=== PATIENT | female | born 1975 | race African-American/Black ===

== ENCOUNTER 2021-11-27 11:30 | Emergency (ER) | payer MEDICAID, SELFPAY ==
--- NOTE | ~2021-11-27 | US_ITS ---
EXAMINATION: US OB follow up DATE: 11/27/2021 13:06 INDICATION: Uncertain dates. . TECHNIQUE: Real-time ultrasound of the pelvis was performed. COMPARISON: None. FINDINGS: There is a single living fetus in breech presentation. The placenta is anterior. heart rate is 134 beats per minute (bpm). The amniotic fluid index is 15.6 cm, which is normal. The following biometric data were obtained: Biparietal diameter (BPD): 5.1 cm; head circumference (HC): 19.1 cm; abdominal circumference (AC): 17 .0 cm; femur length (FL): 3.8 cm. These measurements are concordant. Estimated weight is 458 g +/- 69 g, which correlates with the <3rd percentile when 03/22/22 is us ed as estimated date of delivery. As single measurements, these parameters are each equal to the following estimated gestational ages: BPD: 21 weeks 3 days. HC: 21 weeks 3 days. AC: 22 weeks 0 days. FL: 22 weeks 0 days. estimated gestational age based solely on measurements from this exam is 21 weeks 5 days +/- 1 weeks 4 days. IMPRESSION: 1. Single living fetus in breech presentation. 2. Estimated date of delivery of 04/04/2022 based on this ultrasound. Reviewed, dictated and finalized at location A. GATION CLAIM REPRESENTATIVE
[2021-11-27 11:34] VITALS: BP 141/78; PULSE 105; RESP 18; TEMP 36.7; O2SAT 100
[2021-11-27 12:17] LABS: Basophils Percent Auto 0.3 % (0.2-1.2); Eosinophils Percent Auto 0.1 % (0-4.4); Hematocrit 31.4 % (37.0-47.0); Hemoglobin 10.4 g/dL (12.0-15.0); Immature Granulocyte Absolute 0.04 K/mm3 (0.00-0.031); Immature Granulocyte Percent A 0.3 % (0-0.5); Lymphocytes Absolute Auto 1.21 K/mm3 (0.9-3.2); Lymphocytes Percent Auto 10.2 % (18.3-44.2); Mean Corpuscular HGB Conc 33.1 g/dl (32-36); Mean Corpuscular Hemoglobin 32.6 pg (26-34); Mean Corpuscular Volume 98.4 fl (80-100); Mean Platelet Volume 9.8 fl (7.4-10.4); Monocytes Absolute Auto 0.6 K/mm3 (0.1-0.6); Monocytes Percent Auto 4.7 % (2.6-8.5); Neutrophils Percent Auto 84.4 % (45.5-73.1); Platelet Count Result 347 k/mm3 (150-375); Red Blood Count 3.19 M/mm3 (4.2-5.4); Red Cell Distribution Width 12.8 % (11.5-14.5); White Blood Count 11.8 K/mm3 (4.5-10.0)
[2021-11-27 12:18] LABS: Alanine Aminotransferase 14 U/L (4-35); Albumin Level 3.7 g/dL (3.5-5.1); Alkaline Phosphatase 68 U/L (38-126); Anion Gap 8 mmol/L (8-16); Aspartate Amino Transferase 21 U/L (14-36); Bilirubin,Total 0.5 mg/dL (0.2-1.3); Blood Urea Nitrogen 13 mg/dL (7-17); Carbon Dioxide 22 mmol/L (22-30); Chloride 102 mmol/L (98-107); Estimated CRCL calculation 102 ml/min; Estimated Glomerular Filt Rate > 60; Glucose 130 mg/dL (65-110); Lipase 90 U/L (23-300); Potassium 4.2 mmol/L (3.4-5.0); Sodium 132 mmol/L (137-145)
[2021-11-27 12:25] LABS: Bilirubin Urine 1+ (Negative); Blood Urine Negative (Negative); Color Urine Yellow (Yellow); Glucose Urine UA Negative (Negative); Ketones Urine 2+ mg/dL (Negative); Leukocyte Esterase Ur Negative LEU/UL (Negative); Nitrate Urine Negative (Negative); Protein Urine 2+ mg/dL (Negative); Specific Grav Ur 1.025 (1.001-1.035)
[2021-11-27 12:51] LABS: Mucus Urine Rare /lpf; RBC Urine 0-2 /hpf (0-2); Squamous Epithelial Cell Urine Many /hpf (Few)
[2021-11-27 12:52] LABS: Add Urine Microscopic? YES; Appearance Urine Sl Cloudy (Clear)
--- NOTE | 2021-11-27 13:05 | ED.NAVMDI ---
HPI - Nausea/Vomiting/Diarrhea General Chief complaint: Nausea/Vomiting/Diarrhea Stated complaint: nausea and concerned for Time Seen by Provider: 11/27/21 12:17 Source: patient Mode of arrival: ambulatory Limitations: no limitations History of Present Illness HPI Narrative: Patient is a 46-year-old female complaining of nausea for months, I have been sick since July and I did have my period since accompanied by lower abdominal cramping. Patient does not know if she is since she has not taken any test. Patient states that her nausea has increased and now she has been having vomiting for the past few days. She denies any vaginal bleeding or discharge. Patient denies any chest pain, shortness of breath, diarrhea, urinary symptoms, fever or chills. Related Data Allergies Allergy/AdvReac Type Severity Reaction Status Date / Time No Known Allergies Allergy Verified 11/27/21 11:33 Review of Systems Review of Systems: All systems reviewed & are unremarkable except as noted in HPI and below Constitutional: Constitutional: Denies body ache(s), Denies chills, Denies excessive sweating, Denies fatigue, Denies fever(s), Denies headache(s), Denies lethargy, Denies malaise, Denies weakness and Denies weight loss Eyes: Eyes: Denies blurry vision, Denies change in vision and Denies loss of vision ENT: Denies dizziness, Denies ear discharge, Denies headache(s), Denies lip swelling, Denies epistaxis, Denies nasal congestion, Denies neck pain, Denies throat swelling and Denies tongue swelling Cardiovascular: Cardiovascular: Denies chest pain, Denies chest pain at rest, Denies chest pain with activity, Denies diaphoresis, Denies rapid heart rate, Denies edema, Denies irregular heart rhythm, Denies lightheadedness, Denies palpitations, Denies dyspnea and Denies dyspnea on exertion Respiratory: Respiratory: Denies chest congestion, Denies cough, Denies hemoptysis, Denies dyspnea and Denies dyspnea on exertion Gastrointestinal: Gastrointestinal: Denies melena, Denies hematochezia, Denies diarrhea and Denies hematemesis Musculoskeletal: Musculoskeletal: Denies abnormal gait, Denies deformity, Denies joint swelling, Denies limited range of motion, Denies neck pain and Denies numbness Neurologic: Denies Abnormal speech present, Denies abnormal gait, Denies confusion, Denies dizziness, Denies headache(s), Denies focal weakness, Denies loss of vision, Denies numbness, Denies Other visual disturbances, Denies Sensory deficit (Neuro) and Denies weakness Psychiatric: Psychiatric: Denies confusion, Denies depression, Denies auditory hallucinations, Denies homicidal ideation and Denies suicidal ideation Endocrine: Endocrine: Denies cold intolerance, Denies excessive sweating, Denies fatigue, Denies heat intolerance and Denies palpitations Hematologic/Lymphatic: Hematologic/Lymphatic: Denies easy bleeding and Denies easy bruising Allergic/Immunologic: Allergic/Immunologic: Denies lip swelling, Denies throat swelling and Denies tongue swelling PMFSH Comments Past medical history: Diabetes Family history: Diabetes, hypertension Social history: Non-smoker, no EtOH use, positive for marijuana use Exam Const: General: cooperative, healthy appearing, comfortable, no acute distress, well developed, alert and awake; No confusion Orientation/consciousness: oriented to person, oriented to place, oriented to time, patient oriented x3 and No confusion Limitations: no limitations HENMT: Head: normal to inspection, normocephalic and atraumatic Ears: hearing grossly normal bilaterally, TM normal on the right and TM normal on the left General nose exam: Normal external nose present, Normal nares present and No nasal discharge present Face and sinus: normal facial exam Mouth: Yes Normal oral and palatal mucosa present, Yes lip normal, Yes tongue normal and Yes oropharynx normal Throat: posterior oropharynx normal, tonsils normal and
[2021-11-27] MEDS: SODIUM CHLORIDE 0.9% IV 1,000 ML 999 ML IV CONT (13:09)
[2021-11-27] MEDS: PROMETHAZINE HCL 25 MG/ML AMPUL 12.5 MG IV PUSH (13:14)
== END 2021-11-27 15:03 | disposition home or self-care (01) ==
PROVIDERS: Emergency Medicine; Emergency Provider Emergency Medicine
DX: O21.2 Late vomiting of pregnancy (principal); O24.112 Pre-existing type 2 diabetes mellitus, in pregnancy, second trimester; Z3A.21 21 weeks gestation of pregnancy
CPT/HCPCS: 36415; 76816; 80053; 81001; 81025; 83690; 84702; 85025; 87077; 87086; 87088; 96361; 96374; 99284; J2550; J7030

== ENCOUNTER 2022-03-08 12:50 | Inpatient (IN) | payer OTHER, SELFPAY ==
[2022-03-08] VITALS (60 sets, daily range): BP systolic 84–164; BP diastolic 48–90; PULSE 26–232; RESP 14–18; TEMP 36.2–36.8; O2SAT 72–100; BMI 34.0
--- NOTE | 2022-03-08 12:50 | LDADM ---
This patient, Altaf Dejesus, was admitted to Labor/Delivery/Recovery 120 on 03/08/22 at 12:50. Plans for labor, pain management and were discussed with patient. Patient/family oriented to hospital policies and general routines including ID bracelet, bed and alarms, visiting hours, pain management, procedures, bathroom and other care routines, personal items, smoking policy, room service/diet and guest tray routines, security routines, and visiting hours. Patient/Family are encouraged to report perceived risks to care and to ask questions if they do not understand what they are told or what they should do. See OBIX for further documentation.
[2022-03-08] MEDS: LACTATED RINGERS 1,000 ML 100 ML IV CONT (14:15)
[2022-03-08] MEDS: ONDANSETRON INJ 4 MG/2 ML VIAL IV PUSH (14:16)
[2022-03-08 14:31] LABS: Basophils Percent Auto 0.5 % (0.2-1.2); Eosinophils Percent Auto 0.3 % (0-4.4); Hematocrit 34.3 % (37.0-47.0); Hemoglobin 11.2 g/dL (12.0-15.0); Immature Granulocyte Absolute 0.07 K/mm3 (0.00-0.031); Immature Granulocyte Percent A 0.8 % (0-0.5); Lymphocytes Absolute Auto 1.67 K/mm3 (0.9-3.2); Lymphocytes Percent Auto 19.2 % (18.3-44.2); Mean Corpuscular HGB Conc 32.7 g/dl (32-36); Mean Corpuscular Hemoglobin 31.8 pg (26-34); Mean Corpuscular Volume 97.4 fl (80-100); Mean Platelet Volume 10.1 fl (7.4-10.4); Monocytes Absolute Auto 0.5 K/mm3 (0.1-0.6); Monocytes Percent Auto 5.9 % (2.6-8.5); Neutrophils Absolute Auto 6.4 K/mm3 (1.3-6.7); Neutrophils Percent Auto 73.3 % (45.5-73.1); Platelet Count Result 377 k/mm3 (150-375); Red Blood Count 3.52 M/mm3 (4.2-5.4); Red Cell Distribution Width 12.6 % (11.5-14.5); White Blood Count 8.7 K/mm3 (4.5-10.0)
[2022-03-08 14:43] LABS: Alanine Aminotransferase 12 U/L (6-35); Albumin Level 3.7 g/dL (3.5-5.1); Alkaline Phosphatase 109 U/L (38-126); Anion Gap 5 mmol/L (8-16); Aspartate Amino Transferase 21 U/L (14-36); Bilirubin,Total 0.4 mg/dL (0.2-1.3); Blood Urea Nitrogen 20 mg/dL (7-17); Calcium 9.7 mg/dL (8.4-10.2); Carbon Dioxide 21 mmol/L (22-30); Chloride 104 mmol/L (98-107); Estimated Glomerular Filt Rate > 60; Glucose 81 mg/dL (65-110); Potassium 4.6 mmol/L (3.4-5.0); Sodium 130 mmol/L (137-145)
--- NOTE | 2022-03-08 14:55 | PC.NURSE ---
Dr. Thomas updated on pt labs, strip and cervical check. Orders received for pt for repeat c/s. C/S orders received.
--- NOTE | 2022-03-08 15:10 | PC.NURSE ---
notified of pt contractions with cervical change. Orders received for pt to have up to 3 dose of terb. pt to go for c/s once OR is available.
[2022-03-08] MEDS: TERBUTALINE SULFATE 1 MG/ML VIAL 0.25 MG SUB-Q (15:16)
[2022-03-08] MEDS: LACTATED RINGERS 1,000 ML 125 ML IV CONT ×2 (15:21→16:07)
--- NOTE | 2022-03-08 15:22 | WPDANESEPPF ---
Anes - Initial Pre Proc Eval Procedure: Operation Date: 03/08/22 16:00 Proposed Procedures p Section - Annia Thomas MD Date/Time: 03/08/22 15:22 Surgeon: Annia Thomas MD Pre Op Diagnosis: Labor Patient Data Age: 46 Gender: F Height: 1.6 m Weight: 87 kg Last Vital Signs Pulse 105 H 03/08/22 15:21 BP 150/90 H 03/08/22 15:21 Allergies Allergy/AdvReac Type Severity Reaction Status Date / Time No Known Allergies Allergy Verified 11/27/21 11:33 Home Medications Medication Instructions Recorded Confirmed Type No Home Medications 02/25/22 02/25/22 History Laboratory Tests 03/08/22 03/08/22 03/08/22 14:24 14:24 14:24 WBC 8.7 K/mm3 K/mm3 (4.5-10.0) RBC 3.52 M/mm3 L M/mm3 (4.2-5.4) Hgb 11.2 g/dL L g/dL (12.0-15.0) Hct 34.3 % L % (37.0-47.0) MCV 97.4 fl fl (80-100) MCH 31.8 pg pg (26-34) MCHC 32.7 g/dl g/dl (32-36) RDW 12.6 % % (11.5-14.5) Plt Count 377 k/mm3 H k/mm3 (150-375) MPV 10.1 fl fl (7.4-10.4) Immature Gran % (Auto) 0.8 % H % (0-0.5) Neut % (Auto) 73.3 % H % (45.5-73.1) Lymph % (Auto) 19.2 % % (18.3-44.2) Kingfisher % (Auto) 5.9 % % (2.6-8.5) Eos % (Auto) 0.3 % % (0-4.4) Baso % (Auto) 0.5 % % (0.2-1.2) Lymph # (Auto) 1.67 K/mm3 K/mm3 (0.9-3.2) Kingfisher # (Auto) 0.5 K/mm3 K/mm3 (0.1-0.6) Eos # (Auto) 0.0 K/mm3 K/mm3 (0-0.3) Baso # (Auto) 0.0 K/mm3 K/mm3 (0.0-0.1) Abs Immat Gran (auto) 0.07 K/mm3 H K/mm3 (0.00-0.031) Absolute Neuts (auto) 6.4 K/mm3 K/mm3 (1.3-6.7) Absolute Nucleated RBC 0.0 K/mm3 K/mm3 (0.0-0.012) Nucleated RBC % 0.0 % % (0.0-0.2) Sodium 130 mmol/L L mmol/L (137-145) Potassium 4.6 mmol/L mmol/L (3.4-5.0) Chloride 104 mmol/L mmol/L (98-107) Carbon Dioxide 21 mmol/L L mmol/L (22-30) Anion Gap 5 mmol/L L mmol/L (8-16) BUN 20 mg/dL H mg/dL (7-17) Creatinine 0.90 mg/dL mg/dL (0.7-1.0) Estim Creat Clear Calc Not Reportable Estimated GFR > 60 (59 - ) Glucose 81 mg/dL mg/dL (65-110) Calcium 9.7 mg/dL mg/dL (8.4-10.2) Total Bilirubin 0.4 mg/dL mg/dL (0.2-1.3) AST 21 U/L U/L (14-36) ALT 12 U/L U/L (6-35) Alkaline Phosphatase 109 U/L U/L (38-126) Total Protein 8.0 g/dL g/dL (6.3-8.2) Albumin 3.7 g/dL g/dL (3.5-5.1) RPR Pending Patient hx anesthesia problems: none Family hx anesthesia problems: none Results Review: All pre-operative results and documents have been reviewed as part of the pre-operative evaluation. [facility] Family History Family History (Updated 02/25/22 @ 14:47 by Ida Mcmanus RN) Mother Hypertension Diabetes mellitus Social History Social History Smoking status: Never smoker Substance use: never Spiritual care concerns: No Anes - Eval Final PreProcedure Day of Procedure 03/08/22 15:22 Heart: regular rate and rhythm Lungs: clear to auscultation and normal air movement Airway: Mallampati scale Neurological: alert and oriented Last oral intake: >/= 8 hours ASA classification: III Emergent: no Anesthetic plan: proceed Anesthesia type and monitoring: regional spinal and standard monitoring Results Review: All pre-operative results and documents have been reviewed as part of the pre-operative evaluation. Informed Consent: The patient's anesthetic plan and its attendant risks and benefits were discussed with the patient/family/POA. Questions were solicited and answers provided to the satisfaction of the patient/family/POA.
[2022-03-08] MEDS: NIFEdipine 10 MG CAPSULE PO (16:07)
--- NOTE | 2022-03-08 16:07 | PM.IMHP ---
H&P: HPI History of Present Illness Date/Time: 03/08/22 16:07 Chief Complaint: Labor Narrative: this patient is a 46-year-old multiparous female with a 36 weeks gestation who presents in labor. She had a previous delivery and has old thin lower uterine segment. We have been waiting for the operating room to be available to perform her delivery. She is stable at this time. She is messi regularly and they are painful. She reports good movement. She denies any vaginal bleeding or loss of fluid. She denies any chest pain or shortness of breath. She denies any nausea, vomiting, fever, chills. Review of Systems Review of Systems: All systems reviewed & are unremarkable except as noted in HPI and below Constitutional: Constitutional: Denies chills, Denies fatigue, Denies fever(s) and Denies weakness Eyes: Eyes: Denies blurry vision, Denies change in vision, Denies loss of peripheral vision, Denies loss of vision, Denies other visual disturbances and Denies eye pain ENT: Denies vertigo, Denies dizziness, Denies hearing loss, Denies mouth pain, Denies nasal obstruction, Denies neck mass and Denies neck pain Cardiovascular: Cardiovascular: Denies chest pain, Denies diaphoresis, Denies syncope, Denies leg edema and Denies dyspnea Respiratory: Respiratory: Denies chest congestion, Denies cough, Denies hemoptysis, Denies dyspnea and Denies wheezing Gastrointestinal: Gastrointestinal: Denies abdominal pain, Denies constipation, Denies diarrhea, Denies nausea and Denies vomiting Genitourinary: Genitourinary: Denies hematuria, Denies change in libido, Denies nocturia, Denies genital lesions, Denies flank pain and Denies urinary urgency Musculoskeletal: Musculoskeletal: Denies abnormal gait, Denies back pain, Denies myalgias, Denies arthralgias, Denies joint swelling, Denies muscle weakness and Denies neck pain Integumentary/Breasts: Skin/Breast: Denies swelling, Denies breast pain, Denies breast mass, Denies dry skin, Denies nipple discharge, Denies unusual bruising and Denies jaundice Neurologic: Denies Neuro-related abnormal movements, Denies Abnormal speech present, Denies abnormal gait, Denies behavioral changes, Denies confusion, Denies vertigo, Denies dizziness, Denies syncope, Denies loss of vision, Denies memory loss, Denies convulsions and Denies weakness Psychiatric: Psychiatric: Denies abnormal sleep pattern, Denies behavioral changes, Denies change in libido, Denies confusion, Denies depression, Denies anhedonia and Denies memory loss Endocrine: Endocrine: Reports no additional endocrine complaints, Denies change in libido and Denies fatigue Hematologic/Lymphatic: Hematologic/Lymphatic: Reports no additional hematologic/lymphatic complaints Allergic/Immunologic: Allergic/Immunologic: Reports no additional allergic/immunologic complaints and Denies wheezing [facility] Family History Family History (Updated 02/25/22 @ 14:47 by Ida Mcmanus RN) Mother Hypertension Diabetes mellitus Social History Social History Smoking status: Never smoker Substance use: never Spiritual care concerns: No Meds Home Medications and Allergies Home Medications Medication Instructions Recorded Confirmed Type glyburide 5 mg tablet 1 tablet PO DAILY 03/08/22 03/08/22 History Allergies Allergy/AdvReac Type Severity Reaction Status Date / Time No Known Allergies Allergy Verified 11/27/21 11:33 Vital Signs Vital Signs - 24 hr 03/08/22 15:14 03/08/22 15:21 03/08/22 15:29 Pulse Rate 97 105 H Blood Pressure 160/88 H 150/90 H Pulse Oximetry 78 L 03/08/22 15:29 03/08/22 15:31 03/08/22 15:34 Pulse Rate 120 H Blood Pressure 138/81 Pulse Oximetry 81 L 100 03/08/22 15:35 03/08/22 15:39 03/08/22 15:44 Pulse Rate Blood Pressure Pulse Oximetry 80 L 100 100 03/08/22 15:46 03/08/22 15:49 03/08/22 15:54 Pulse Rate 120 H Blood Pressure 156/83 H Pulse Oxime
--- NOTE | 2022-03-08 16:10 | WPDHPUPDATE1 ---
History and Physical Update Update Date/Time: 03/08/22 16:10 History and Physical has been reviewed, including an updated exam of the patient. There are NO changes in the patient's condition. Risks, benefits, and alternatives have been discussed and questions answered. Patient agrees to proceed with procedure.
--- NOTE | 2022-03-08 17:47 | P.OP_ITS ---
Procedure Note - Detailed Date of Procedure 03/08/22 Pre-op Diagnosis Labor, previous , female sterilization Post-op Diagnosis Same Procedure Performed Low-transverse section Surgeon Annia Thomas MD Anesthesia Spinal Indications Previous , female sterilization Findings Normal gestational maternal anatomy, average size , normal Apgars. Description of Procedure The patient was taken the operating room. She was prepped and draped in dorsal supine position with a leftward tilt. This was done after spinal anesthetic was applied. A low-transverse skin incision was made and carried down till of the fascia with the knife. The fascial incision was made with the knife. The fascial incision was extended laterally with Mar scissors. The fascia was tented upward superiorly and inferiorly the rectus muscles were dissected off bluntly. The rectus muscles were the midline. The preperitoneal fat and peritoneum were dissected open bluntly at the superior aspect of the rectus muscles. The peritoneal incision was extended superior and inferior with good position of bladder. The uterine incision was made with a scalpel down to the level of the amniotic cavity. The amniotic cavity was entered bluntly. The infant was delivered. The cord was clamped and cut and the was handed off to waiting pediatric staff. Cord bloods were obtained. The placenta was removed manually. The uterus was exteriorized. The uterus was cleared of all clots, debris and membranes. The uterus was closed in 0 Vicryl running lock fashion. An imbricating over a was placed along the incision line as well. the right fallopian tube was grasped in the ampullary region with a John. The mesosalpinx was cauterized and a window was created in the same area adjace nt to the tube. The proximal distal ends of the isolated were ligated with 0 Vicryl. The ligated segment was transected and. The cut ends of the tube were cauterized. The contralateral tube was ligated in the same fashion The uterus was returned to the abdomen. The gutters were cleared of all clots and debris. The fascia was closed with 0 Vicryl running fashion. The subcutaneous tissue was irrigated pinpoint bleeders were cauterized. The skin was closed with subcuticular absorbable geeta. The skin incision line was covered with glue. The patient tolerated the procedure well. She has taken recovery room in stable condition. Sponge lap and needle counts were correct x2. Estimated Blood Loss 456 Pathology Yes Complications No immediate complications Condition Stable Disposition PACU
[2022-03-08] MEDS: OXYTOCIN 30 UNITS/NS 500 ML 30 UNITS/500 ML BAG 125 UNITS IV CONT (17:52)
[2022-03-08] MEDS: MORPHINE SULFATE INJ (*CRX) 10 MG/ML AMP 2 MG IV PUSH ×2 (19:13→19:31)
--- NOTE | 2022-03-08 20:05 | OBPPTRN ---
Patient transferred to post room #278 via stretcher. Oriented to unit, room, information board, rooming in, admission packet and security measures. Patient verbalizes understanding.
[2022-03-08 20:08] LABS: Amphetamine Screen Urine Negative (Negative); Barbiturate Screen Urine Negative (Negative); Benzodiazepines Screen Urine Negative (Negative); Cannabinoid Screen Urine Negative (Negative); Cocaine Screen Urine Negative (Negative); Methadone Screen Urine Negative (Negative); Opiate Screen Urine Negative (Negative); Phencyclidine Screen Urine Negative (Negative)
[2022-03-08] MEDS: KETOROLAC 30 MG/ML VIAL (*BKC) IV PUSH (21:03)
[2022-03-08] MEDS: DEXTROSE 5%/0.45% SOD CHL 1,000 ML 125 ML IV CONT (23:00)
[2022-03-09 03:50] VITALS: BP 114/74; PULSE 85; RESP 16; TEMP 36.8; O2SAT 99
[2022-03-09] MEDS: KETOROLAC 30 MG/ML VIAL (*BKC) IV PUSH ×2 (03:54→12:25)
[2022-03-09 05:22] LABS: Basophils Absolute Auto 0.1 K/mm3 (0.0-0.1); Basophils Percent Auto 0.4 % (0.2-1.2); Eosinophils Percent Auto 0.1 % (0-4.4); Hematocrit 27.3 % (37.0-47.0); Immature Granulocyte Percent A 0.8 % (0-0.5); Lymphocytes Absolute Auto 1.22 K/mm3 (0.9-3.2); Lymphocytes Percent Auto 10.2 % (18.3-44.2); Mean Corpuscular Hemoglobin 32.1 pg (26-34); Mean Corpuscular Volume 97.5 fl (80-100); Mean Platelet Volume 10.5 fl (7.4-10.4); Monocytes Absolute Auto 0.7 K/mm3 (0.1-0.6); Monocytes Percent Auto 5.4 % (2.6-8.5); Neutrophils Absolute Auto 9.9 K/mm3 (1.3-6.7); Neutrophils Percent Auto 83.1 % (45.5-73.1); Platelet Count Result 288 k/mm3 (150-375); Red Cell Distribution Width 12.2 % (11.5-14.5); White Blood Count 11.9 K/mm3 (4.5-10.0)
--- NOTE | 2022-03-09 07:38 | PM.OBPNVD ---
OB - PN: Subj Subjective Date/time seen: 03/09/22 07:38 Patient comments: no complaints, pain well controlled, tolerating diet and flatus present OB - PN: Obj Data Labs CBC & Chem 7: 03/09/22 04:01 03/08/22 14:24 Labs: Laboratory Results - last 24 hr 03/08/22 03/08/22 03/08/22 14:24 14:24 19:25 WBC 8.7 RBC 3.52 L Hgb 11.2 L Hct 34.3 L MCV 97.4 MCH 31.8 MCHC 32.7 RDW 12.6 Plt Count 377 H MPV 10.1 Immature Gran % (Auto) 0.8 H Neut % (Auto) 73.3 H Lymph % (Auto) 19.2 Woodson % (Auto) 5.9 Eos % (Auto) 0.3 Baso % (Auto) 0.5 Lymph # (Auto) 1.67 Woodson # (Auto) 0.5 Eos # (Auto) 0.0 Baso # (Auto) 0.0 Abs Immat Gran (auto) 0.07 H Absolute Neuts (auto) 6.4 Absolute Nucleated RBC 0.0 Nucleated RBC % 0.0 Sodium 130 L Potassium 4.6 Chloride 104 Carbon Dioxide 21 L Anion Gap 5 L BUN 20 H Creatinine 0.90 Estim Creat Clear Calc Not Reportable Estimated GFR > 60 Glucose 81 Calcium 9.7 Total Bilirubin 0.4 AST 21 ALT 12 Alkaline Phosphatase 109 Total Protein 8.0 Albumin 3.7 Urine Opiates Screen Negative Urine Methadone Screen Negative Ur Barbiturates Screen Negative Ur Phencyclidine Scrn Negative Ur Amphetamine Screen Negative U Benzodiazepines Scrn Negative Urine Cocaine Screen Negative U Cannabinoids Screen Negative Blood Type Antibody Screen 03/08/22 03/09/22 19:25 04:01 WBC 11.9 H RBC 2.80 L Hgb 9.0 L Hct 27.3 L MCV 97.5 MCH 32.1 MCHC 33.0 RDW 12.2 Plt Count 288 MPV 10.5 H Immature Gran % (Auto) 0.8 H Neut % (Auto) 83.1 H Lymph % (Auto) 10.2 L Woodson % (Auto) 5.4 Eos % (Auto) 0.1 Baso % (Auto) 0.4 Lymph # (Auto) 1.22 Woodson # (Auto) 0.7 H Eos # (Auto) 0.0 Baso # (Auto) 0.1 Abs Immat Gran (auto) 0.10 H Absolute Neuts (auto) 9.9 H Absolute Nucleated RBC 0.0 Nucleated RBC % 0.0 Sodium Potassium Chloride Carbon Dioxide Anion Gap BUN Creatinine Estim Creat Clear Calc Estimated GFR Glucose Calcium Total Bilirubin AST ALT Alkaline Phosphatase Total Protein Albumin Urine Opiates Screen Urine Methadone Screen Ur Barbiturates Screen Ur Phencyclidine Scrn Ur Amphetamine Screen U Benzodiazepines Scrn Urine Cocaine Screen U Cannabinoids Screen Blood Type B Positive Antibody Screen Negative OB - PN A/P Plan day: 1 Comments: Post Op LTCS - no problems, routine recovery Time Spent With Patient Time: Total time spent is greater than 50% in coordination of care (as documented) at patient's floor/unit and/or counseling patient: Exam Const: General: cooperative, healthy appearing, comfortable and no acute distress Resp: Auscultation: no crackles, no rales, no rhonchi and no wheezes Cardio: Rhythm: regular rhythm Heart sounds: no click and no murmurs GI: Inspection: non-distended Auscultation: normal bowel sounds Extrem: General: normal to inspection, no pedal edema and no calf tenderness
[2022-03-09 07:45] VITALS: BP 108/74; PULSE 88; RESP 18; TEMP 36.4; O2SAT 100
[2022-03-09 09:01] LABS: Glucose Point of Care 105 mg/dl (65-105)
--- NOTE | 2022-03-09 09:21 | WPDANLDPN2 ---
Anes-Prog Note L&D Date/Time: 03/09/22 09:21 Comfortable throughout: section Neuraxial method: spinal Epidural/Spinal procedure site: clean & non-tender Neuro status: Neuro function grossly intact. Cardiovascular status: normal Respiratory status: normal Airway patency: baseline Mental status: baseline Post-Op hydration status: normal Vital Signs: Last Vital Signs Temp 36.8 C 03/09/22 03:50 Pulse 85 03/09/22 03:50 Resp 16 03/09/22 03:50 BP 114/74 03/09/22 03:50 Pulse Ox 99 03/09/22 03:50 O2 Del Method Room Air 03/09/22 07:10 Pain score (VAS): 10/24 I/O: Intake & Output 03/08/22 03/09/22 03/09/22 23:59 07:59 15:59 Intake Total 1500 Output Total 2075 600 Balance -575 -600 Post-procedural complaints: none Patient feedback: Patient satisfied with anesthetic care.
--- NOTE | 2022-03-09 09:22 | WPDANLDNPN2 ---
Anes-Prog Note L&D-Neuraxial Date/Time: 03/09/22 09:22 Neuraxial medications: intrathecal PF morphine Opiod-related complaints: none Patient feedback: Patient satisfied with post-operative pain management.
[2022-03-09] MEDS: DOCUSATE SODIUM 100 MG CAPSULE PO ×2 (10:30→17:18)
[2022-03-09] MEDS: POLYSACCHARIDE IRON COMPLEX 150 MG CAPSULE PO ×2 (10:30→17:18)
[2022-03-09 10:40] LABS: Glucose Point of Care 126 mg/dl (65-105)
[2022-03-09 11:03] LABS: Rapid Plasma Reagin Non-Reactive (NonReactive)
[2022-03-09 11:37] VITALS: BP 105/70; PULSE 99; RESP 16; TEMP 36.6; O2SAT 100
--- NOTE | 2022-03-09 15:15 | PC.NURSE ---
[id number] Introductions were made, then consulted with patient to assess needs related to . Mother led the conversation with her experience feeding her infant so far. Mother works well with her infant. Encouraged parents in understanding of the benefits of skin to skin (unwrapping and placing vertically on her chest), responsive feeding and how to watch for early feeding signs, frequency of feeding on demand about every 8-12 times in 24 hours (every 2-3 hours), milk production, duration of feeding, signs of adequate intake/output and how to record on the feeding sheet. Reviewed positioning and ear, shoulder, hip alignment, supporting the breast, asymmetrical latch (off-center), and leading with the chin with a big open side gape. Infant latched optimally to the right breast in football position. Education given to mother of how to visualize suck/swallow ratios and drinking at the breast. Infant was able to maintain latch without discomfort to mother. Nipple care reviewed with optimal latch and good positioning. Reminding mother of comfort measures of healing with a warm and wet washcloth to rinse breast, then leave open to air-dry as needed. Reviewed good handwashing when or touching the breast/nipples to prevent infection. Resources used to facilitate learning were used with the visual handouts/ tool/mom and baby guide. Mother voiced understanding of responsive feedings, stimulating with skin to skin, hand expressed colostrum, touch, talking to infant to encourage if it has been 2 -3 hours since the start of the last , to call if infant does not latch or there is discomfort with . Reported to the primary RN.
[2022-03-09 16:00] VITALS: BP 118/64; PULSE 78; RESP 20; TEMP 36.5; O2SAT 98
[2022-03-09] MEDS: HYDROcodone/acetaminophen (*CRX) 5-325 MG TABLET 1 TAB PO ×2 (17:17→23:43)
[2022-03-09] MEDS: SIMETHICONE 80 MG TAB.CHEW PO ×2 (17:18→23:43)
[2022-03-09] MEDS: IBUPROFEN 600 MG TABLET PO ×2 (17:18→23:43)
[2022-03-09 18:15] VITALS: BP 123/77; PULSE 94; RESP 18; TEMP 36.9
[2022-03-10] MEDS: IBUPROFEN 600 MG TABLET PO ×3 (05:43→22:00)
[2022-03-10] MEDS: HYDROcodone/acetaminophen (*CRX) 5-325 MG TABLET 1 TAB PO ×2 (05:43→13:58)
[2022-03-10 07:25] VITALS: BP 113/71; PULSE 91; RESP 18; TEMP 37.4; O2SAT 100
--- NOTE | 2022-03-10 07:26 | P.PNOB_ITS ---
OB - PN: Subj Subjective Date/time seen: 03/10/22 07:26 Patient comments: incisional pain and tolerating diet baby status: other (bili lights) [place] feeding status: exclusively bottle feeding OB - PN: Obj Data Labs CBC & Chem 7: 03/09/22 04:01 03/08/22 14:24 Labs: Laboratory Results - last 24 hr 03/08/22 03/09/22 03/09/22 14:24 08:57 10:28 POC Capillary Glucose 105 126 H RPR Non-reactive OB - PN A/P Plan day: 2 Plan: routine care Time Spent With Patient Time: Total time spent is greater than 50% in coordination of care (as documented) at patient's floor/unit and/or counseling patient: Review of Systems Review of Systems: All systems reviewed & are unremarkable except as noted in HPI and below Exam Narrative: incision cdi Const: General: cooperative and uncomfortable (due for pain medication)
[2022-03-10] MEDS: POLYSACCHARIDE IRON COMPLEX 150 MG CAPSULE PO ×2 (09:17→16:40)
[2022-03-10] MEDS: DOCUSATE SODIUM 100 MG CAPSULE PO ×2 (09:18→16:40)
[2022-03-10] MEDS: HYDROcodone/acetaminophen (*CRX) 10-325 MG TABLET 1 TAB PO ×3 (09:18→22:01)
[2022-03-10] MEDS: SIMETHICONE 80 MG TAB.CHEW PO ×2 (14:00→22:00)
[2022-03-10 20:20] VITALS: BP 121/73; PULSE 94; RESP 18; TEMP 36.7
[2022-03-11] MEDS: HYDROcodone/acetaminophen (*CRX) 10-325 MG TABLET 1 TAB PO (03:50)
[2022-03-11] MEDS: SIMETHICONE 80 MG TAB.CHEW PO ×2 (03:51→13:21)
[2022-03-11] MEDS: IBUPROFEN 600 MG TABLET PO ×2 (03:51→13:22)
[2022-03-11 06:35] VITALS: BP 117/59; PULSE 87; RESP 18; TEMP 36.7; O2SAT 99
[2022-03-11] MEDS: POLYSACCHARIDE IRON COMPLEX 150 MG CAPSULE PO (08:05)
[2022-03-11] MEDS: DOCUSATE SODIUM 100 MG CAPSULE PO (08:05)
[2022-03-11] MEDS: HYDROcodone/acetaminophen (*CRX) 5-325 MG TABLET 1 TAB PO ×2 (08:05→13:21)
--- NOTE | 2022-03-11 12:49 | PM.OBPNVD ---
OB - PN: Subj Subjective Date/time seen: 03/11/22 12:49 Patient comments: no complaints, pain well controlled, incisional pain, tolerating diet and flatus present OB - PN: Obj Data Labs CBC & Chem 7: 03/09/22 04:01 03/08/22 14:24 OB - PN A/P Plan day: 2 Plan: routine care Comments: POD#2 LTCS - no problems, Time Spent With Patient Time: Total time spent is greater than 50% in coordination of care (as documented) at patient's floor/unit and/or counseling patient: Exam Const: General: comfortable, no acute distress and alert Resp: Effort & Inspection: normal respiratory effort Auscultation: no crackles, no rales and no rhonchi Cardio: Rate: regular rate Heart sounds: no click, no murmurs and no rubs GI: Inspection: non-distended GI Palp: No Tenderness to palpation present (GI) Auscultation: normal bowel sounds Other: Incision - CDI Extrem: General: normal to inspection, no pedal edema and no calf tenderness
--- NOTE | 2022-03-11 12:50 | P.DS_ITS ---
DS: Admitting Diagnosis Discharge Date Admitting Diagnosis previous ltcs DS: Discharge Diagnosis Discharge Diagnosis (1) Previous delivery, delivered: Code(s): O34.219 - Maternal care for unspecified type scar from previous delivery Status: Acute OB - DS: Summary OB Procedures : NST and Ultrasound OB Procedures Intrapartum: OB Procedures: : None Peripartum Data Procedures: Procedures Operation Date: 03/08/22 16:00 Actual Procedure Side Surgeon p Section Annia Thomas MD Operation Date: 03/28/22 12:00 <No data on this case meets the specified criteria> Time Spent with Patient Time attestation: Total time spent providing and/or coordinating discharge services: DS: Data Data Completed and Pending Pending studies at discharge: Pending at discharge 03/08/22 17:08 Surgical [PTH] Routine Surgical [PTH] Routine Discharge Plan Discharge Attending physician on discharge: Annia Thomas Discharging Clinician: Annia Thomas Patient Disposition: Home, Self-Care Activity: pelvic rest Diet: regular Patient Instructions: Antibiotic Form Stand Alone Forms: General Discharge Information Follow-up/Referrals: Annia Thomas MD [Physician] - Discharge Medications: New hydrocodone-acetaminophen 5-325 mg tablet 1 tablet PO Q4H PRN (Reason: pain) Qty: 25 0RF Continued glyburide 5 mg tablet 1 tablet PO DAILY Date of admission: 03/08/22 12:50 Primary Care Provider: PHYSICIAN,ACCESS CONTROL SPECIALIST Admitting Provider: Annia Thomas Attending physician on admission: Annia Thomas Condition: Stable
[2022-03-13 13:09] VITALS: BP 148/70; PULSE 74; RESP 20; TEMP 36.9; O2SAT 100
== END 2022-03-11 14:45 | disposition home or self-care (01) | DRG 540 ==
LOC: ANHLDR 13:24 → ANHOB2 21:27
PROVIDERS: Admitting Provider Obstetrics & Gynecology; Visit Provider Obstetrics & Gynecology
PROC: 10D00Z1 Extraction of Products of Conception, Low, Open Approach (ICD-10-PCS; CPT 59514; principal; 2022-03-08 16:00)
DX: O34.211 Maternal care for low transverse scar from previous cesarean delivery (principal); Z30.2 Encounter for sterilization; O34.593 Maternal care for other abnormalities of gravid uterus, third trimester; O24.429 Gestational diabetes mellitus in childbirth, unspecified control; O69.81X0 Labor and delivery complicated by cord around neck, without compression, not applicable or unspecified; Z3A.36 36 weeks gestation of pregnancy; Z37.0 Single live birth
CPT/HCPCS: 36415; 80053; 80307; 82948; 85025; 86592; 86850; 86900; 86901; 88302; 88307; A9270; J1885; J2270; J2274; J2370; J2405; J2590; J3105; J7120

== ENCOUNTER 2023-06-06 13:05 | Emergency (ER) | payer OTHER, SELFPAY ==
[2023-06-06] VITALS (12 sets, daily range): BP systolic 150–189; BP diastolic 93–115; PULSE 98–117; RESP 12–26; TEMP 36.4–36.8; O2SAT 95–100
--- NOTE | ~2023-06-06 | XR_ITS ---
EXAMINATION: XR chest 2V 06/06/2023 15:17 INDICATION: Acid reflux with chest pain PROCEDURE: 2 view chest COMPARISON: No prior studies for comparison. FINDINGS: The lungs are clear. The cardiomediastinal silhouette is within normal limits. There are no pleural effusions. There is no pneumothorax suspected. IMPRESSION: 1: NO ACUTE CARDIOPULMONARY DISEASE. Reviewed, dictated and finalized at location B.
--- NOTE | ~2023-06-06 | CT_ITS ---
EXAMINATION: CTA chest PE protocol DATE: 06/06/2023 16:18 INDICATION: Chest pain TECHNIQUE: Computed tomography (CT) pulmonary angiogram of the chest was performed with 100 mL Omnipa que-350 intravenous contrast. Additional 3D reconstructions utilizing coronal maximum intensity proje ction (MIP) were performed. Automated exposure control and iterative reconstruction technique were em ployed. The dose-length product was 336.95 mGy-cm. COMPARISON: None FINDINGS: Excellent contrast opacification of the pulmonary arteries. There is mild streak artifact from dense contrast in the superior vena cava and right atrium. Mild scattered respiratory motion artifact which does not significantly limit evaluation. No pulmonary embolism. No pneumonia, pulmonary edema or ple ural effusion. Heart size is normal. No pericardial effusion. Thoracic aorta is normal in caliber wit h no dissection. Small sliding-type hiatal hernia. No pathologically enlarged thoracic lymphadenopath y. Visualized upper abdomen is unremarkable. Moderate lower cervical and mild thoracic spondylosis. IMPRESSION: 1. No pulmonary embolism or other acute cardiopulmonary disease. 2. Small sliding-type hiatal hernia. Reviewed, dictated and finalized at location A.
--- NOTE | 2023-06-06 13:30 | ECG_ITS ---
Measurements Intervals [place] Rate: 111 P: 48 PA: 128 QRS: 53 QRSD: 92 T: -81 QT: 319 QTc: 434 Interpretive Statements SINUS TACHYCARDIA ST DEVIATION AND MODERATE T-WAVE ABNORMALITY NO PREVIOUS ECG AVAILABLE FOR COMPARISON Electronically Signed On 06-06-2023 14:12:58 CDT by Chanell Abebe M.D.
--- NOTE | 2023-06-06 14:03 | ECG_ITS ---
Measurements Intervals [place] Rate: 111 P: 44 [place]: 126 QRS: 34 QRSD: 75 T: -73 QT: 316 QTc: 431 Interpretive Statements SINUS TACHYCARDIA ST DEVIATION AND MODERATE T-WAVE ABNORMALITY, CONSIDER INFERIOR ISCHEMIA [-0.1+ mV T WAVE IN II/aVF] COMPARED TO ECG 06/06/2023 13:37:55 NO SIGNIFICANT CHANGES Electronically Signed On 06-06-2023 14:15:39 CDT by Chanell Abebe M.D.
--- NOTE | 2023-06-06 14:35 | ED.GENADULT ---
HPI - General Adult General Chief complaint: Unspecified Stated complaint: acid reflux severe Time Seen by Provider: 06/06/23 14:21 History of Present Illness HPI narrative: 48-year-old female with history of diabetes presented to the emergency department for evaluation of nausea vomiting epigastric pain. Patient reports he started having increased gastric reflux yesterday and has had persistent chest pressure and epigastric pain today. Patient denies any prior history of [place] or coronary disease. Patient has had a hiatal hernia and has been scoped previously. Patient states this was approximately 10 years ago. Patient reports he does have a prior history of hiatal hernia. Related Data Allergies Allergy/AdvReac Type Severity Reaction Status Date / Time No Known Allergies Allergy Verified 06/06/23 14:53 Review of Systems Review of Systems: All systems reviewed & are unremarkable except as noted in HPI and below Exam Narrative: APPEARANCE: Well appearing, no pain, no distress, well-nourished. HEAD: normocephalic, atraumatic. EYES: PERRLA/EOMI, conjunctivae clear. NOSE: Normal no drainage EARS:TMS clear with good light reflex. THROAT: Pharynx clear, no exudate. NECK: Supple. No adenopathy, no masses. RESPIRATORY: Airway patent, respirations nonlabored. Clear to auscultation bilaterally, no rales, rhonchi, wheezing. CARDIOVASCULAR: Regular rate and rhythm without murmurs rubs or gallops. ABDOMINAL: Mild epigastric tenderness to palpation MUSCULOSKELETAL: Moves all extremities. Strength/ROM intact, No edema, No calf tenderness. NEURO: Alert. Cranial nerves II through XII intact. Intact SKIN: Warm, dry. Normal Color Course Course Emergency Course: 48-year-old female presenting to the emergency department for evaluation of epigastric pain. Patient was afebrile with a mild leukocytosis of 11.9. Patient did have a mild KVNG but baseline creatinine is not known. Patient had negative serial troponins. Patient did have an elevated D-dimer but CTA showed no evidence of of pulmonary embolism. EKG showed normal sinus rhythm with no evidence of ischemia. Patient was updated the results of her work-up and was encouraged of close follow-up with her primary care physician for additional outpatient cardiac testing. All question concerns were addressed and patient was well-appearing at time of discharge. Vital Signs Vital signs: Vital Signs Temperature 97.5 F L 06/06/23 13:25 Pulse Rate 115 H 06/06/23 13:25 Respiratory Rate 16 06/06/23 13:25 Blood Pressure 153/109 H 06/06/23 13:25 Pulse Oximetry 100 06/06/23 13:25 Oxygen Delivery Room Air 06/06/23 13:25 Temperature 98.0 F 06/06/23 19:00 Pulse Rate 117 H 06/06/23 19:37 Respiratory Rate 16 06/06/23 19:37 Blood Pressure 157/98 H 06/06/23 19:37 Pulse Oximetry 98 06/06/23 19:37 Oxygen Delivery Room Air 06/06/23 13:25 Medical Decision Making Differential Diagnosis Differential Diagnosis: PE, pneumonia, NSTEMI, abdominal pain, pancreatitis Vital Signs Vital Signs: Vital Signs Temperature 97.5 F L 06/06/23 13:25 Pulse Rate 115 H 06/06/23 13:25 Respiratory Rate 16 06/06/23 13:25 Blood Pressure 153/109 H 06/06/23 13:25 Pulse Oximetry 100 06/06/23 13:25 Oxygen Delivery Room Air 06/06/23 13:25 Temperature 98.0 F 06/06/23 19:00 Pulse Rate 117 H 06/06/23 19:37 Respiratory Rate 16 06/06/23 19:37 Blood Pressure 157/98 H 06/06/23 19:37 Pulse Oximetry 98 06/06/23 19:37 Oxygen Delivery Room Air 06/06/23 13:25 Lab Data Lab results reviewed: Yes I reviewed the patient's lab results. 06/06/23 15:01 06/06/23 15:30 Labs: Lab Results 06/06/23 06/06/23 06/06/23 Range/Units 15:00 15:01 15:30 WBC 11.9 H (4.5-10.0) K/mm3 RBC 4.72 (4.2-5.4) M/mm3 Hgb 14.9 (12.0-15.0) g/dL Hct 44.5 (37.0-47.0) % MCV 94.3 (80-100) fl MCH 31.6 (26-34) pg M
[2023-06-06] MEDS: BELLADONNA ALK/PHENOB ELIX 10 ML, MAG HYDROX/ALUMINUM HYD/SIMETH 30 ML, LIDOCAINE HCL 2... PO (14:53)
[2023-06-06] MEDS: PANTOPRAZOLE SODIUM IV 40 MG VIAL IV PUSH (15:03)
[2023-06-06 15:10] LABS: Basophils Percent Auto 0.3 % (0.2-1.2); Hematocrit 44.5 % (37.0-47.0); Hemoglobin 14.9 g/dL (12.0-15.0); Immature Granulocyte Absolute 0.05 K/mm3 (0.00-0.031); Immature Granulocyte Percent A 0.4 % (0-0.5); Lymphocytes Absolute Auto 2.06 K/mm3 (0.9-3.2); Lymphocytes Percent Auto 17.4 % (18.3-44.2); Mean Corpuscular HGB Conc 33.5 g/dl (32-36); Mean Corpuscular Hemoglobin 31.6 pg (26-34); Mean Corpuscular Volume 94.3 fl (80-100); Mean Platelet Volume 9.8 fl (7.4-10.4); Monocytes Percent Auto 8.5 % (2.6-8.5); Neutrophils Absolute Auto 8.7 K/mm3 (1.3-6.7); Neutrophils Percent Auto 73.4 % (45.5-73.1); Platelet Count Result 429 k/mm3 (150-375); Red Blood Count 4.72 M/mm3 (4.2-5.4); Red Cell Distribution Width 12.2 % (11.5-14.5); White Blood Count 11.9 K/mm3 (4.5-10.0)
[2023-06-06 15:25] LABS: Prothrombin Time 13.9 Seconds (11.1-14.7)
[2023-06-06 15:26] LABS: Partial Thromboplastin Time 26.9 SECONDS (22.3-36.8)
--- NOTE | 2023-06-06 15:41 | PC.NURSE ---
Pt denies any relief with GI cocktail. C/O lower back pain rates 10
[2023-06-06 15:44] LABS: D Dimer 1.73 ug/mL (<0.48)
[2023-06-06 15:49] LABS: Anion Gap 11 mmol/L (8-16); Blood Urea Nitrogen 39 mg/dL (7-17); Carbon Dioxide 30 mmol/L (22-30); Chloride 86 mmol/L (98-107); Estimated CRCL calculation 61 ml/min; Potassium 4.5 mmol/L (3.4-5.0); Sodium 127 mmol/L (137-145)
[2023-06-06 15:50] LABS: Alanine Aminotransferase 37 U/L (6-35); Albumin Level 4.7 g/dL (3.5-5.1); Alkaline Phosphatase 116 U/L (38-126); Aspartate Amino Transferase 27 U/L (14-36); Calcium 11.3 mg/dL (8.4-10.2); Estimated Glomerular Filt Rate > 60; Glucose 226 mg/dL (65-110); Lipase 61 U/L (23-300)
[2023-06-06 16:01] LABS: Troponin I < 0.012 ng/mL (0.000-0.034)
[2023-06-06] MEDS: HYDROmorphone HCL INJ (*CRX) 1 MG/ML SYR IV PUSH (16:45)
[2023-06-06 18:58] LABS: Troponin I < 0.012 ng/mL (0.000-0.034)
== END 2023-06-06 19:38 | disposition home or self-care (01) ==
PROVIDERS: Emergency Medicine; Emergency Provider Emergency Medicine
DX: R10.13 Epigastric pain (principal); R07.89 Other chest pain; E11.9 Type 2 diabetes mellitus without complications; K44.9 Diaphragmatic hernia without obstruction or gangrene; R00.0 Tachycardia, unspecified; R94.31 Abnormal electrocardiogram [ECG] [EKG]
CPT/HCPCS: 36415; 71046; 71275; 80053; 83690; 84484; 85025; 85380; 85610; 85730; 93005; 96374; 96375; 99284; A9270; C9113; J1170; Q9967

== ENCOUNTER 2024-05-03 15:07 | Inpatient (IN) | payer OTHER, SELFPAY ==
[2024-05-03] VITALS (26 sets, daily range): BP systolic 104–159; BP diastolic 65–110; PULSE 83–123; RESP 11–26; TEMP 36.5–36.8; O2SAT 98–100; BMI 36.3
--- NOTE | ~2024-05-03 | US_ITS ---
EXAMINATION: US thyroid DATE: 05/04/2024 08:27 INDICATION: Abnormal findings on CT with left thyroid nodule TECHNIQUE: Multiple ultrasound images of the thyroid were obtained. COMPARISON: CT dated 05/03/2024 FINDINGS: The right thyroid lobe measures 4.8 x 1.4 x 1.5 cm. The left thyroid lobe measures 6.2 x 2.5 x 2.0 c m. 2.5 x 2.0 x 1.9 cm solid wider than tall heterogeneous iso to hypoechoic nodule with smooth jacobo ns and a few internal echogenic foci (TI-RADS 5, highly suspicious , FNA if >=1.0 cm, annual followup is >0.5 cm). There is normal echotexture, echogenicity and vascular flow throughout the remainder of the thyroid gland. IMPRESSION: 1. 2.5 cm TI RADS 5 left thyroid nodule for which ultrasound-guided biopsy would be recommended. Reviewed, dictated and finalized at location A. IMPRESSION: 1. 2.5 cm TI RADS 5 left thyroid nodule for which ultrasound-guided biopsy woul d be recommended.
--- NOTE | ~2024-05-03 | XR_ITS ---
EXAMINATION: XR chest 2V DATE: 05/03/2024 16:11 INDICATION: Chest pain TECHNIQUE: frontal and lateral views of the chest were obtained. COMPARISON: Chest radiograph dated 06/06/23 FINDINGS: The lungs remain clear with no focal airspace opacities, pulmonary edema, pleural effusion or pneumot horax. The cardiomediastinal silhouette is normal. Visualized bones and soft tissues are unremarkable . IMPRESSION: 1. No acute cardiopulmonary disease. Reviewed, dictated and finalized at location A.
--- NOTE | ~2024-05-03 | US_ITS ---
US venous doppler [facility] DATE: 05/04/2024 08:27 INDICATION: [NSTEMI] TECHNIQUE: Real-time and color flow imaging and Doppler analysis of the veins of both lower extremiti es COMPARISON: None FINDINGS: The greater saphenous veins are patent. The spontaneous and phasic flow and normal augmenta tion, flow signal and normal compression of the deep veins of both lower extremities. IMPRESSION: No evidence of deep venous thrombosis of the lower extremities Reviewed, dictated and finalized at Location A. Reviewed, dictated and finalized at location A.
--- NOTE | ~2024-05-03 | CT_ITS ---
EXAMINATION: CTA chest abdomen pelvis DATE: 05/03/2024 16:49 INDICATION: Midsternal chest pain and low back pain TECHNIQUE: Computed tomographic angiography (CTA) of the chest, abdomen, and pelvis was performed wit hout and with 100 mL Omnipaque-350 intravenous contrast. Volume-rendered 3D-reconstructions of the ao rta and large arteries were constructed by the technologist on a separate workstation. Automated expo sure control and iterative reconstruction technique were employed. The dose-length product was 1265.1 9 mGy-cm. COMPARISON: None FINDINGS: Chest: 3 mm flat triangular likely intrafissural lymph node along the left major fissure. Lungs are clear wi th no pneumonia, pulmonary edema, pleural effusion or pneumothorax. Heart size is normal. Small ather osclerotic calcific lesion along the proximal right coronary artery. No pericardial effusion. Thoraci c aorta is normal in caliber with no dissection. 2.1 cm left thyroid nodule. Calcified precarinal lym ph node consistent with old granulomatous disease. Small sliding-type hiatal hernia. There are some m ild wall thickening at the distal esophagus which could be related to esophagitis. Moderate lower cer vical and mild thoracic spondylosis. Abdomen and pelvis: Diffuse hepatic steatosis. Gallbladder, spleen, pancreas and bilateral adrenal glands are normal. Tin y low-attenuation cyst at the lower pole of the left kidney. Small region of cortical scarring at the upper pole the right kidney. Bowels including the appendix are normal. Bladder, anteverted uterus an d bilateral adnexa are normal. No free intraperitoneal gas or fluid. No pathologically enlarged abdom inal or pelvic lymphadenopathy. There is mild scattered atherosclerotic plaque along the normal calib er abdominal aorta and bilateral iliac arteries. No dissection. Incidentally noted bilateral accessor y renal arteries. Moderate lower lumbar spondylosis. IMPRESSION: 1. Normal caliber thoracic and abdominal aorta with no dissection. 2. Small sliding-type hiatal hernia with mild wall thickening distal esophagus which could be related to esophagitis such as in the setting of reflux. 3. 2.1 cm left thyroid nodule. Consider thyroid ultrasound for stratification. 4. No acute intra-abdominal/pelvic process. Reviewed, dictated and finalized at location A.
--- NOTE | 2024-05-03 15:11 | ECG_ITS ---
Test Date: 2024-05-03 15:21:06 Measurements Intervals [place] Rate: 118 P: 38 [place]: 112 QRS: -19 QRSD: 98 T: 209 QT: 347 QTc: 487 Interpretive Statements SINUS TACHYCARDIA WITH SHORT TN INTERVAL POSSIBLE LEFT ATRIAL ENLARGEMENT CONSIDER ANTERIOR INFARCT, AGE INDETERMINATE ST-T WAVE ABNORMALITY IN DIFFUSE LEADS- CONSIDER ISCHEMIA BASELINE WANDER- III, V1-V3 ABNORMAL ECG No previous ECG available for comparison Electronically Signed On 05-03-2024 15:29:26 CDT by Wu Franco D.O.
[2024-05-03 15:40] LABS: Basophils Absolute Auto 0.1 K/mm3 (0.0-0.1); Basophils Percent Auto 0.3 % (0.2-1.2); Hematocrit 47.6 % (37.0-47.0); Hemoglobin 16.5 g/dL (12.0-15.0); Immature Granulocyte Absolute 0.07 K/mm3 (0.00-0.031); Immature Granulocyte Percent A 0.4 % (0-0.5); Lymphocytes Absolute Auto 1.83 K/mm3 (0.9-3.2); Lymphocytes Percent Auto 11.2 % (18.3-44.2); Mean Corpuscular HGB Conc 34.7 g/dl (32-36); Mean Corpuscular Hemoglobin 31.6 pg (26-34); Mean Corpuscular Volume 91.2 fl (80-100); Mean Platelet Volume 10.3 fl (7.4-10.4); Monocytes Absolute Auto 1.2 K/mm3 (0.1-0.6); Monocytes Percent Auto 7.3 % (2.6-8.5); Neutrophils Absolute Auto 13.2 K/mm3 (1.3-6.7); Neutrophils Percent Auto 80.8 % (45.5-73.1); Platelet Count Result 428 k/mm3 (150-375); Red Blood Count 5.22 M/mm3 (4.2-5.4); Red Cell Distribution Width 12.7 % (11.5-14.5); White Blood Count 16.3 K/mm3 (4.5-10.0)
--- NOTE | 2024-05-03 16:14 | ED.CHESTPAIN ---
HPI - Chest Pain General Chief Complaint: Chest Pain Stated Complaint: cp Time Seen by Provider: 05/03/24 16:07 History of Present Illness HPI narrative: Patient presents with chest pain. She notes that yesterday she had nausea and vomiting and overnight she developed chest pain with center of chest and radiating to her back that has persisted. She states it is 10/10 in severity. No palliating or provoking factors. Patient states it is constant but intermittently intensifies. She feels weak. She tried Tums with no improvement. No associated shortness of breath, cough, or fever. She is a nonsmoker. She states previously she had been told that she had borderline hypertension had not been prescribed medications. She states she had been diagnosed with hyperlipidemia but has not been taking medication. She also has a diagnosis of diabetes mellitus and is supposed to be on metformin but has not been taking this as well. Prior TIA or CVA. No prior myocardial infarction. Family history of myocardial infarction but after the age of 65. No primary care physician. Related Data Home Medications Medication Instructions Recorded Confirmed glyburide 5 mg tablet 1 tablet PO DAILY 03/08/22 03/08/22 Allergies Allergy/AdvReac Type Severity Reaction Status Date / Time No Known Allergies Allergy Verified 05/03/24 15:09 [facility] Past Medical History Medical History Diabetes mellitus HLD (hyperlipidemia) Family History Family History (Updated 02/25/22 @ 14:47 by Ida Mcmanus RN) Mother Hypertension Diabetes mellitus Social History Social History Smoking status: Never smoker Substance use: never Spiritual care concerns: No Exam Narrative: GENERAL: well-nourished, appears uncomfortable/in pain HEAD: Normocephalic, atraumatic. EYES: Non injected, non icteric ENT: Nares clear, no rhinorrhea or epistaxis. NECK: Supple. CHEST: Speaking in full sentences. No respiratory distress. HEART:Tachycardic rate and rhythm. ABDOMEN: Soft, nondistended. EXTREMITIES: Normal range of motion. No edema. SKIN: Warm, dry, no rash. NEURO: No focal deficits. Alert and oriented x3. PSYCH: Normal mood and affect. Course Vital Signs Vital signs: Vital Signs Temperature 97.7 F 05/03/24 15:20 Pulse Rate 119 H 05/03/24 15:20 Respiratory Rate 18 05/03/24 15:20 Blood Pressure 137/92 H 05/03/24 15:20 Pulse Oximetry 100 05/03/24 15:20 Oxygen Delivery Room Air 05/03/24 15:20 Temperature 97.7 F 05/03/24 15:20 Pulse Rate 100 05/03/24 20:12 Respiratory Rate 20 05/03/24 20:12 Blood Pressure 131/81 05/03/24 20:12 Pulse Oximetry 100 05/03/24 20:12 Oxygen Delivery Room Air 05/03/24 16:52 MDM - Chest Pain MDM Narrative Medical decision making narrative: Patient presents with chest pain that been preceded by nausea and vomiting yesterday. In the emergency department she is afebrile with vital signs notable only for very mild elevation of diastolic blood pressure as well as tachycardia. HEART SCORE History 2 highly suspicious 1 moderately suspicious 0 slightly suspicious History score [address] depression/elevation not due to LBBB, LVH, or digoxin [address] depression but LBBB, LVH, nonspecific repolarization changes 0 normal ECG score 2 Age 2 >/= 65 1 45-64 0 <45 Age score 1 Risk factors (HTN, hypercholesterolemia, DM, obesity with BMI >30, current smoker or cessation </=3mo), positive fam hx with parent or sibling with CVD before age 65, atherosclerotic disease (prior CT, PCI/CABG, CVA/TIA, or peripheral arterial disease) 2 >/= 3 risk factors or history of atherosclerotic dz (HLD, DM, borderline diagnosis of HTN previously, obesity ) 1 - 1-2 risk factors 0 no known risk factors Risk factor score 2 Initial Troponin 2 >3 times normal limit (49x upper limit of normal) 1 1-3 times norm
--- NOTE | 2024-05-03 16:19 | ECG_ITS ---
Test Date: 2024-05-03 16:35:16 Measurements Intervals [place] Rate: 106 P: 51 [place]: 128 QRS: -28 QRSD: 82 T: 167 QT: 347 QTc: 461 Interpretive Statements SINUS TACHYCARDIA POSSIBLE LEFT ATRIAL ENLARGEMENT LOW QRS VOLTAGE IN PRECORDIAL LEADS CANNOT R/O SEPTAL INFARCT, AGE INDETERMINATE ST-T WAVE ABNORMALITY IN LAT/HIGH LAT LEADS- CONSIDER ISCHEMIA BASELINE ARTIFACT- I, II, III, AVR, AVL, AVF, V1-V4 ABNORMAL ECG Compared to ECG 05/03/2024 15:21:06 NO SIGNIFICANT CHANGE Electronically Signed On 05-03-2024 19:49:43 CDT by Wu Franco D.O.
[2024-05-03 16:22] LABS: Alanine Aminotransferase 24 U/L (6-35); Albumin Level 4.6 g/dL (3.5-5.1); Alkaline Phosphatase 143 U/L (38-126); Anion Gap 15 mmol/L (4-12); Aspartate Amino Transferase 32 U/L (14-36); Bilirubin,Total 0.9 mg/dL (0.2-1.3); Blood Urea Nitrogen 47 mg/dL (7-17); Carbon Dioxide 32 mmol/L (22-30); Chloride 81 mmol/L (98-107); Estimated CRCL calculation 47 ml/min; Estimated Glomerular Filt Rate 45; Glucose 407 mg/dL (65-110); Lipase 130 U/L (23-300); Sodium 128 mmol/L (137-145)
[2024-05-03] MEDS: MORPHINE SULFATE (*CRX) 4 MG/ML INJ IV PUSH ×2 (16:55→19:25)
[2024-05-03] MEDS: SODIUM CHLORIDE 0.9% IV 1,000 ML 999 ML IV CONT (16:55)
[2024-05-03 17:00] LABS: Beta-Hydroxybutyrate/Acetoacetate 2.37 mmol/L (0.02-0.27)
[2024-05-03 17:09] LABS: HDL Direct 32 mg/dL; Magnesium 1.8 mg/dL (1.6-2.3); Triglycerides 278 mg/dL (<150)
[2024-05-03 17:35] LABS: Cholesterol 504 mg/dL (0-200); LDL Cholesterol Direct 392 mg/dL
[2024-05-03] MEDS: PANTOPRAZOLE 40 MG TABLET PO (17:52)
[2024-05-03] MEDS: ASPIRIN 81 MG CHEWABLE TABLET 324 MG PO (17:52)
[2024-05-03] MEDS: HEPARIN SODIUM 5,000 UNITS/ML VIAL 4000 UNITS IV PUSH (17:53)
[2024-05-03] MEDS: NITROGLYCERIN SL 0.4 MG TABLET SUBLINGUAL (17:53)
--- NOTE | 2024-05-03 18:00 | ECG_ITS ---
Test Date: 2024-05-03 17:57:14 Measurements Intervals [place] Rate: 107 P: 35 [place]: 127 QRS: -26 QRSD: 78 T: 175 QT: 356 QTc: 476 Interpretive Statements SINUS TACHYCARDIA POSSIBLE LEFT ATRIAL ENLARGEMENT CANNOT R/O SEPTAL INFARCT, AGE INDETERMINATE ST-T WAVE ABNORMALITY IN ANTEROLAT/HIGH LAT LEADS- CONSIDER ISCHEMIA BASELINE ARTIFACT- I, II, AVR, AVF ABNORMAL ECG Compared to ECG 05/03/2024 16:35:16 No significant changes Electronically Signed On 05-03-2024 19:51:02 CDT by Wu Franco D.O.
[2024-05-03 18:06] LABS: INR 1.1; Partial Thromboplastin Time 24.6 Seconds (22.3-36.8); Prothrombin Time 14.7 Seconds (11.1-14.7)
[2024-05-03 18:08] LABS: D Dimer 3.31 ug/mL (<0.48)
[2024-05-03 18:15] LABS: Hemoglobin A1C 10.8 % (<5.7)
[2024-05-03 18:24] LABS: Basophils Percent Auto 0.3 % (0.2-1.2); Hematocrit 45.9 % (37.0-47.0); Hemoglobin 15.5 g/dL (12.0-15.0); Immature Granulocyte Absolute 0.06 K/mm3 (0.00-0.031); Immature Granulocyte Percent A 0.4 % (0-0.5); Lymphocytes Absolute Auto 1.39 K/mm3 (0.9-3.2); Lymphocytes Percent Auto 8.9 % (18.3-44.2); Mean Corpuscular HGB Conc 33.8 g/dl (32-36); Mean Corpuscular Hemoglobin 31.3 pg (26-34); Mean Corpuscular Volume 92.7 fl (80-100); Mean Platelet Volume 10.2 fl (7.4-10.4); Monocytes Absolute Auto 1.3 K/mm3 (0.1-0.6); Neutrophils Absolute Auto 12.8 K/mm3 (1.3-6.7); Neutrophils Percent Auto 82.4 % (45.5-73.1); Platelet Count Result 343 k/mm3 (150-375); Red Blood Count 4.95 M/mm3 (4.2-5.4); Red Cell Distribution Width 12.7 % (11.5-14.5); White Blood Count 15.6 K/mm3 (4.5-10.0)
[2024-05-03 18:35] LABS: INR 1.2; Prothrombin Time 16.1 Seconds (11.1-14.7)
[2024-05-03] MEDS: HEPARIN SOD/D5W 100 UNITS/ML 25,000 UNITS/250 ML BAG 9 UNITS IV CONT (18:36)
[2024-05-03] MEDS: SODIUM CHLORIDE 0.9% IV 2,000 ML 2000 ML IV CONT (19:26)
[2024-05-03] MEDS: INSULIN HUMAN REGULAR (*BKC) 100 UNITS in SODIUM CHLORIDE 0.9% IV 99 ML 10 UNITS IV CONT (19:28)
[2024-05-03 19:30] LABS: Lactic Acid Reflex 2.7 mmol/L (0.7-2.0)
[2024-05-03 19:35] LABS: Appearance Urine Cloudy (Clear); Bacteria Urine 1+ /hpf; Bilirubin Urine Negative (Negative); Blood Urine Negative (Negative); Color Urine Yellow (Yellow); Glucose Urine UA 3+ mg/dL (Negative); Ketones Urine 2+ mg/dL (Negative); Leukocyte Esterase Ur Trace LEU/UL (Negative); Need Manual Microscopic Reviewed; Nitrate Urine Negative (Negative); Protein Urine Trace mg/dL (Negative); RBC Urine 0-2 /hpf (0-2); Squamous Epithelial Cell Urine Moderate /hpf (Few); Urobilinogen Urine 0.2 mg/dL (<2.0); WBC Clumps Urine Present /HPF; pH Urine 5.5 (5.0-9.0)
[2024-05-03 19:36] LABS: Amphetamine Screen Urine Negative (Negative); Barbiturate Screen Urine Negative (Negative); Benzodiazepines Screen Urine Negative (Negative); Cannabinoid Screen Urine Positive (Negative); Cocaine Screen Urine Negative (Negative); Methadone Screen Urine Negative (Negative); Opiate Screen Urine Positive (Negative); Phencyclidine Screen Urine Negative (Negative)
[2024-05-03 19:38] LABS: Specific Grav Ur 1.015 (1.001-1.035)
[2024-05-03 19:39] LABS: Add Urine Microscopic? YES
--- NOTE | 2024-05-03 19:46 | PC.NURSE ---
Report received from KULWANT Moon. Assumed care of patient at this time.
[2024-05-03 19:54] LABS: Glucose Point of Care 343 mg/dl (65-105)
--- NOTE | 2024-05-03 20:31 | PC.NURSE ---
Patient arrived from ED with heparin gtt running at 900 units/hr.
[2024-05-03] MEDS: INSULIN HUMAN REGULAR (*BKC) 100 UNITS in SODIUM CHLORIDE 0.9% IV 99 ML IV CONT (20:45)
--- NOTE | 2024-05-03 20:53 | PM.IMHP ---
H&P: HPI History of Present Illness Date/Time: 05/03/24 20:53 Chief Complaint: Chest Pain Narrative: 49-year-old female presents here with chest pain with PMH of hyperlipidemia and diabetes (not currently on medications). The patient presents here from home with EMS for further evaluation of chest pain. Patient initially developed nausea and vomiting on (05/01). Then woke Sunday (05/02) with severe heart burn. She describes the chest pain as lower midsternal, pressure, burning, nonradiating, constant, no aggravating or alleviating factors. Episodes of chest burning would occur every 10 minutes and lasting for 5 seconds. Patient took Pepcid (2 doses) and Tums (half of newly purchased bottle). Did not offer any relief. Patient went to sleep with the pain, was not able to sleep much last night or night before. Woke this morning and pain was similar to previous day. Over the course of the morning the pain continued to worsen. Then developed weakness, fatigue, diaphoretic, dizziness, presyncope, palpitations. Denies shortness of breath or syncope. Patient then sought care at [facility] today (05/03). Patient was transferred here after they did a quick across the room assessment, no vitals or work up obtained. She denies cardiac history. FH of cardiac disease - father of an IA in his 60's. Does have HLD and DM. Patient moved here from [place] (3 years ago) and patient never established with a primary here. Patient ran out of metformin and statin. Upon arrival, glucose found to be 407. Endorsing polydipsia and intermittent polyuria. Initial VS at presentation: 97.7? F, HR 119, RR 18, 137/92, and 100% on RA. ED workup showed: WBC 16.3, hemoglobin 16.5, sodium 128, creatinine 1.5 and GFR 45, gap 15, glucose 4 7, A1c 10.8, calcium 12.0, troponin 1.66, beta hydroxy 2.37, and UA suspicious for UTI. UA positive for opiates and cannabinoids. CXR showed no acute cardiopulmonary disease. CTA of the chest/abdomen/pelvis showed no PE, small sliding hiatal hernia, no dissection, 2.1 cm left thyroid nodule, and no acute intra-abdominal/pelvic process. Review of Systems Review of Systems: All systems reviewed & are unremarkable except as noted in HPI and below PMFSH Past Medical History Medical History Diabetes mellitus GERD (gastroesophageal reflux disease) HLD (hyperlipidemia) Surgical History Surgical History Encounter for female sterilization procedure History of Family History Family History Mother Hypertension Diabetes mellitus Social History Social History Smoking status: Never smoker Alcohol intake: never Substance use: current Substance use type: marijuana Last use: 05/03/24 Do You Feel Safe in your Home?: Yes Lack of Transportation: No Lack of Food: Never True Current Housing: I Have Housing Concerned About Future Housing: No Difficulty Paying Gas/Electric Bills: No Difficulty Paying for Meds: No Currently Unemployed: No Education: Grade School Difficulty w/ Childcare or Family Care: No Spiritual care concerns: No Meds Home Medications and Allergies Home Medications Medication Instructions Recorded Confirmed Type No Home Medications 05/03/24 05/03/24 History Allergies Allergy/AdvReac Type Severity Reaction Status Date / Time No Known Allergies Allergy Verified 05/03/24 15:09 Vital Signs Vital Signs - 24 hr 05/03/24 15:20 05/03/24 16:52 05/03/24 16:52 Temperature 97.7 F Pulse Rate 119 H 108 H Respiratory Rate 18 16 Blood Pressure 137/92 H 133/72 Pulse Oximetry 100 99 98 Oxygen Delivery Room Air Room Air 05/03/24 15:53 05/03/24 15:55 05/03/24 16:28 Temperature Pulse Rate 123 H 122 H 110 H Respiratory
--- NOTE | 2024-05-03 21:12 | ECG_ITS ---
Test Date: 2024-05-03 21:30:57 Measurements Intervals [place] Rate: 87 P: 29 [place]: 123 QRS: -20 QRSD: 86 T: 188 QT: 409 QTc: 494 Interpretive Statements SINUS RHYTHM DELAYED PRECORDIAL R/S TRANSITION T WAVE ABNORMALITY IN ANTEROLAT/HIGH LAT LEADS- CONSIDER ISCHEMIA BASELINE ARTIFACT- I, II, III, AVR, AVL, AVF ABNORMAL ECG Compared to ECG 05/03/2024 17:57:14 HEART RATE HAS DECREASED Electronically Signed On 05-04-2024 07:39:11 CDT by Wu Franco D.O.
[2024-05-03 21:28] LABS: Anion Gap 9 mmol/L (4-12); Blood Urea Nitrogen 41 mg/dL (7-17); Calcium 10.2 mg/dL (8.4-10.2); Carbon Dioxide 29 mmol/L (22-30); Chloride 94 mmol/L (98-107); Estimated CRCL calculation 58 ml/min; Estimated Glomerular Filt Rate 58; Glucose 123 mg/dL (65-110); Magnesium 1.6 mg/dL (1.6-2.3); Phosphorus 4.1 mg/dL (2.5-4.5); Potassium 3.6 mmol/L (3.4-5.0); Sodium 132 mmol/L (137-145)
[2024-05-03 21:40] LABS: Glucose Point of Care 93 mg/dl (65-105)
[2024-05-03 21:40] LABS: Glucose Point of Care 191 mg/dl (65-105)
[2024-05-03 22:14] LABS: Reflex Lactic Acid Yes or No Add Lactic
[2024-05-03] MEDS: LACTATED RINGERS 1,000 ML 100 ML IV CONT (22:42)
[2024-05-03 22:48] LABS: Glucose Point of Care 95 mg/dl (65-105)
[2024-05-04] VITALS (25 sets, daily range): BP systolic 111–176; BP diastolic 67–99; PULSE 69–101; RESP 12–25; TEMP 36.6–37.1; O2SAT 97–100
[2024-05-04] LABS: MRSA (PCR) NOT DETECTED (NOT DETECTE)
--- NOTE | 2024-05-04 00:05 | ADMGEN ---
This patient, Altaf Dejesus, was admitted to Intensive Care Unit-2 at 2030. Patient/family oriented to hospital policies and general routines including ID bracelet, bed and alarms, visiting hours, pain management, procedures, bathroom and other care routines, personal items, smoking policy, room service/diet, and visiting hours. Information on how to activate the Rapid Response Team has been discussed. Patient/Family are encouraged to report perceived risks to care and to ask questions if they do not understand what they are told or what they should do.
[2024-05-04 00:14] LABS: Procalcitonin 0.1 ng/mL
[2024-05-04] MEDS: METOPROLOL TARTRATE 25 MG TABLET PO ×2 (00:23→09:26)
[2024-05-04] MEDS: ATORVASTATIN 40 MG TABLET PO ×2 (00:24→09:26)
[2024-05-04 00:56] LABS: Glucose Point of Care 140 mg/dl (65-105)
[2024-05-04 01:21] LABS: Lactic Acid Reflex 1.5 mmol/L (0.7-2.0)
[2024-05-04 01:27] LABS: Anion Gap 10 mmol/L (4-12); Blood Urea Nitrogen 36 mg/dL (7-17); Calcium 9.9 mg/dL (8.4-10.2); Carbon Dioxide 25 mmol/L (22-30); Chloride 96 mmol/L (98-107); Estimated CRCL calculation 68 ml/min; Estimated Glomerular Filt Rate > 60; Glucose 142 mg/dL (65-110); Potassium 3.7 mmol/L (3.4-5.0); Sodium 131 mmol/L (137-145)
[2024-05-04 01:28] LABS: Partial Thromboplastin Time 40.2 Seconds (22.3-36.8)
[2024-05-04] MEDS: HEPARIN SODIUM 5,000 UNITS/ML VIAL 4000 UNITS IV PUSH (01:53)
[2024-05-04 04:36] LABS: Glucose Point of Care 186 mg/dl (65-105)
--- NOTE | 2024-05-04 08:00 | ECG_ITS ---
Test Date: 2024-05-04 07:51:39 Measurements Intervals [place] Rate: 84 P: 35 KS: 131 QRS: -28 QRSD: 100 T: 162 QT: 396 QTc: 470 Interpretive Statements SINUS RHYTHM DELAYED PRECORDIAL R/S TRANSITION MODERATE T-WAVE ABNORMALITY, CONSIDER ANTEROLAT/HIGH LAT ISCHEMIA BASELINE ARTIFACT- I, II, AVR, V2 ABNORMAL ECG Compared to ECG 05/03/2024 21:30:57 No significant changes Electronically Signed On 05-04-2024 11:56:31 CDT by Wu Franco D.O.
[2024-05-04 08:55] LABS: Basophils Absolute Auto 0.1 K/mm3 (0.0-0.1); Basophils Percent Auto 0.5 % (0.2-1.2); Eosinophils Percent Auto 0.2 % (0-4.4); Hematocrit 43.8 % (37.0-47.0); Hemoglobin 14.1 g/dL (12.0-15.0); Immature Granulocyte Absolute 0.05 K/mm3 (0.00-0.031); Immature Granulocyte Percent A 0.4 % (0-0.5); Lymphocytes Absolute Auto 2.57 K/mm3 (0.9-3.2); Lymphocytes Percent Auto 21.8 % (18.3-44.2); Mean Corpuscular HGB Conc 32.2 g/dl (32-36); Mean Corpuscular Hemoglobin 30.8 pg (26-34); Mean Corpuscular Volume 95.6 fl (80-100); Mean Platelet Volume 10.7 fl (7.4-10.4); Monocytes Absolute Auto 1.1 K/mm3 (0.1-0.6); Monocytes Percent Auto 9.2 % (2.6-8.5); Neutrophils Percent Auto 67.9 % (45.5-73.1); Platelet Count Result 290 k/mm3 (150-375); Red Blood Count 4.58 M/mm3 (4.2-5.4); Red Cell Distribution Width 12.5 % (11.5-14.5); White Blood Count 11.8 K/mm3 (4.5-10.0)
--- NOTE | 2024-05-04 08:55 | WPDCNINT ---
Assessment and Plan Assessment and plan (1) Non-ST elevation [place] (NSTEMI): Code(s): I21.4 - Non-ST elevation (NSTEMI) myocardial infarction Status: Acute Assessment and Plan: 05/03: Patient presented with chest pain, consistent with NSTEMI. -continue heparin infusion -patient continues to be symptomatic with intermittent chest pain -EKG abnormalities has been worrisome . -discussed with Cardiology, likely coronary angiogram later today -continue aspirin, heparin drip, rosuvastatin. -continue metoprolol and nitro paste -echocardiogram has been ordered (2) Hyperlipidemia LDL goal <55: Code(s): E78.5 - Hyperlipidemia, unspecified Status: Acute Assessment and Plan: Continue rosuvastatin (3) DKA (diabetic ketoacidosis): Code(s): E11.10 - Type 2 diabetes mellitus with ketoacidosis without coma Status: Acute Assessment and Plan: Patient presented with hyperkalemia, was in diabetic ketoacidosis, was started on insulin infusion per DKA protocol -patient currently off insulin infusion -continue sliding scale insulin and low-dose Lantus since patient is NPO (4) Diabetes mellitus: Code(s): E11.9 - Type 2 diabetes mellitus without complications Status: Acute Assessment and Plan: History of diabetes, patient has been out of her metformin -hemoglobin A1c is 10.8 this admission -continue treatment as above (5) Essential hypertension: Code(s): I10 - Essential (primary) hypertension Status: Acute Assessment and Plan: Continue metoprolol, nitro paste Plan DVT prophylaxis: Heparin infusion Stress ulcer prophylaxis: Protonix IV Nutrition: NPO for now Code Status: Full code Critical Care Time Spent: 48 minutes Discussed with patient and updated with her condition and plan of care. She is aware that she will having coronary angiogram procedure. Due to a high probability of clinically significant, life threatening deterioration, the patient required my highest level of preparedness to intervene emergently and I personally spent this critical care time directly and personally managing the patient. This critical care time included obtaining a history; examining the patient; pulse oximetry; ordering and review of studies; arranging urgent treatment with development of a management plan; evaluation of patient's response to treatment; frequent reassessment; and discussions with other providers. It was exclusive of separately billable procedures and treating other patients and teaching time. Please see Assessment and Plan section and the rest of the note for further information on patient assessment and treatment This dictation may have been done utilizing a voice recognition system. Attempts have been made to correct errors. However, there may be uncorrected grammatical, spelling, and recognitions errors present. 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 Complained of midsternal chest pressure, burning sensation, stated it radiated to her lower back, complained of diaphoresis with denies any shortness of breath, palpitations, dizziness. Patient did take Pepcid and Tumsl was without any relief. When chest pain along with nausea and vomiting started on 05/01. On 05/03 patient went to an urgent care and was transferred to the ER via EMS. In the ER patient was tachycardic but otherwise hemodynamically stable,, 100% O2 sats on room air, afebrile. WBC count was 60.3, hemoglobin 16.5, sodium 128, potassium was 5.3, creatinine 1.5, anion gap of 15, glucose of 470, hemoglobin A1c of 10.8 troponin of 1.66 and elevated beta hydroxybutyrate. UA was suspicious for UTI. Was also positive for opia
[2024-05-04 09:24] LABS: Alanine Aminotransferase 15 U/L (6-35); Albumin Level 3.4 g/dL (3.5-5.1); Alkaline Phosphatase 94 U/L (38-126); Anion Gap 11 mmol/L (4-12); Aspartate Amino Transferase 24 U/L (14-36); Bilirubin,Total 0.6 mg/dL (0.2-1.3); Blood Urea Nitrogen 30 mg/dL (7-17); Calcium 9.5 mg/dL (8.4-10.2); Carbon Dioxide 22 mmol/L (22-30); Chloride 97 mmol/L (98-107); Estimated CRCL calculation 75 ml/min; Estimated Glomerular Filt Rate > 60; Glucose 182 mg/dL (65-110); Magnesium 1.6 mg/dL (1.6-2.3); Sodium 130 mmol/L (137-145)
[2024-05-04] MEDS: LACTATED RINGERS 1,000 ML 100 ML IV CONT (09:25)
[2024-05-04] MEDS: ASPIRIN 81 MG CHEWABLE TABLET PO (09:26)
[2024-05-04] MEDS: PANTOPRAZOLE SODIUM IV 40 MG VIAL IV PUSH (09:26)
[2024-05-04 09:36] LABS: Glucose Point of Care 209 mg/dl (65-105)
[2024-05-04 09:38] LABS: Partial Thromboplastin Time 71.6 Seconds (22.3-36.8)
[2024-05-04 09:41] LABS: Troponin I 0.965 ng/mL (0.000-0.034)
[2024-05-04] MEDS: INSULIN ASPART (*BKC) 100 UNITS/ML SUB-Q (09:48)
--- NOTE | 2024-05-04 09:55 | PM.IMPN ---
Progress Note: A&P Assessment and Plan (1) Non-ST elevation [place] (NSTEMI): Code(s): I21.4 - Non-ST elevation (NSTEMI) myocardial infarction Status: Acute Assessment and Plan: Patient presents with chest pain. She has risk factor of DM and HLD that are untreated. Non-smoker. CXR clear. EKG sinus tachycardia (118) with short [place] interval, possible LAE, consider anterior infarct age indeterminate, ST-T-wave abnormality in diffuse leads consider ischemia, baseline wander. Repeat EKG showing similar findings. CTA chest/abdomen/pelvis: 1. Normal caliber thoracic and abdominal aorta with no dissection. 2. Small sliding-type hiatal hernia with mild wall thickening distal esophagus which could be related to esophagitis such as in the setting of reflux. 3. 2.1 cm left thyroid nodule. Consider thyroid ultrasound for stratification. 4. No acute intra-abdominal/pelvic process. 5. No pulmonary embolism. Troponin: 1.66 on admission but trending down since then ASA 324 and sublingual nitro given, SL nitro p.r.n. available and started on heparin gtt Cardiology consulted with plans for [facility] today. Continue medical management with ASA, Metoprolol and Crestor (2) DKA (diabetic ketoacidosis): Code(s): E11.10 - Type 2 diabetes mellitus with ketoacidosis without coma Status: Acute Assessment and Plan: Initial glucose 407, gap open, beta hydroxy 2.37, and 2+ ketones in urine. A1c 10.8%. DKA and hypoglycemia protocol started. Started on insulin GTT and given fluid bolus Gap now closed. Insulin drip changed to lantus art educator consulted (3) Sepsis: Qualifiers: Sepsis acute organ dysfunction status: without acute organ dysfunction Sepsis type: sepsis due to unspecified organism Qualified Code(s): A41.9 - Sepsis, unspecified organism Code(s): A41.9 - Sepsis, unspecified organism Status: Acute Assessment and Plan: Meets SIRS criteria with elevated HR and WBC. No hypoxia or hypotension. Probably related to NSTEMI and/or DKA and/or UTI Patient received appropriate of fluid resuscitation. Lactic acid: 2.7 -> 1.5 UA is consistent with UTI. Cx collected. Old cultures reviewed. Rocephin started. Cx pending. Follow up on Cx results. Continue abx for now. (4) UTI (urinary tract infection): Qualifiers: Hematuria presence: without hematuria Urinary tract infection type: acute cystitis Qualified Code(s): N30.00 - Acute cystitis without hematuria Code(s): N39.0 - Urinary tract infection, site not specified Status: Acute Assessment and Plan: As above (5) KVNG (acute kidney injury): Code(s): N17.9 - Acute kidney failure, unspecified Status: Acute Assessment and Plan: Creatinine 1.5 and GFR 45. Previously at 0.9 and GFR >60 in February of 2022 Suspect KVNG is secondary to nausea, vomiting, dehydration, UTI, DKA. Given IV fluids and started on antibiotics. Trend renal function, electrolytes and UOP (6) Hyperlipidemia LDL goal <55: Code(s): E78.5 - Hyperlipidemia, unspecified Status: Acute Assessment and Plan: TG 278, TC 504, LDL 392 and HDL 32. Crestor started. She will need multiple medications to control cholesterol. (7) Diabetes mellitus: Code(s): E11.9 - Type 2 diabetes mellitus without complications Status: Acute Assessment and Plan: As above Water System Operator and Diab Eduator to see Changed to lantus. Adjust to control glucose Plan Diet: NPO GI Prophylaxis: pantoprazole IVP DVT Prophylaxis: heparin drip Lines: peripheral Code Status: full code Subjective Date/time seen: 05/04/24 09:55 Interval history: 49yo female with DM and HLD here for chest pain. She is still having chest pain as an achy sensation substernal. Worse with belching. She moved back from [place] to care for her disabled adult siblings. She also has 5 living children ranging in age from 2-20. She h
[2024-05-04 10:02] LABS: Free T4 Free Thyroxine 1.63 ng/mL (0.78-2.19)
--- NOTE | 2024-05-04 10:51 | PM.CNCAR ---
Assessment and Plan Assessment and plan (1) Non-ST elevation [place] (NSTEMI): Code(s): I21.4 - Non-ST elevation (NSTEMI) myocardial infarction Status: Acute Assessment and Plan: Patient presenting with symptoms consistent with acute coronary syndrome in the form of a non ST-elevation myocardial infarction. Still with intermittent chest pain with evolving ECGs. EKG abnormalities were worrisome for multivessel or even left main disease. Regardless, given her intermittent, ongoing chest discomfort I do think that urgent invasive approach is most appropriate. I have talked to Dr. Bates also who is in agreement and plan will be for coronary angiogram later today or sooner if needed and it becomes an emergency. In the meantime, continue aspirin 81 mg p.o. daily, heparin drip. will change her statin to rosuvastatin 40 mg daily and she will likely need a PCSK9 inhibitor as an outpatient. Metoprolol tartrate 25 mg p.o. b.i.d. and nitroglycerin paste to be continued and drip to be started if needed. 2D echocardiogram Doppler is also ordered. Further workup and recommendations depending on the results of the angiogram (2) Hyperlipidemia LDL goal <55: Code(s): E78.5 - Hyperlipidemia, unspecified Status: Acute Assessment and Plan: Start rosuvastatin 40 mg daily (3) Diabetes mellitus: Code(s): E11.9 - Type 2 diabetes mellitus without complications Status: Acute Assessment and Plan: Her ICU and hospitalist teams (4) Essential hypertension: Code(s): I10 - Essential (primary) hypertension Status: Acute Assessment and Plan: Above goal. Will start losartan before discharge History of Present Illness History of Present Illness Consult date/time: 05/04/24 10:51 Requesting physician: Jessica Dorantes MD Consult reason: chest pain (Non-STEMI) Reason For Visit: NSTEMI, Hyperglycemia with anion gap; KVNG; Hyperca Narrative: Reason for consultation: Non-STEMI Date of service 05/04/2024 Requesting provider: Dr. Colbert History patient is a 49-year-old female who does not have known cardiac history but does have uncontrolled diabetes, uncontrolled hyperlipidemia, family medical history of vascular disease. She does smoke marijuana. She presents to the hospital because of severe chest pain. She states she started throwing up with nausea 2 days ago. This was significant. After vomiting episodes started having some chest discomfort. She describes as severe reflux. She took Pepcid and Tums without benefit. She also had some soreness in the left arm. She was very diaphoretic she states but no shortness of breath. Her symptoms would wax and wane but due to severe symptoms yesterday morning she decided come to the hospital for further workup and evaluation. Initial troponins were elevated. She has been treated with heparin, aspirin, nitroglycerin. Nitroglycerin does seem to help and she does state that her symptoms have improved but she is still having paroxysms of chest discomfort but not as severe as what brought her to the hospital. Last episode of chest pain was this morning. Serial EKGs are reviewed showing ischemic ST and T-wave abnormalities diffusely and more prominent in the anterolateral leads. She has also been incidentally found to have urinary tract infection and has received antibiotics. She denies any syncope, paroxysmal nocturnal dyspnea, orthopnea Review of Systems Review of Systems: All systems reviewed & are unremarkable except as noted in HPI and below Constitutional: Constitutional: Reports no additional constitutional complaints and Denies chills Eyes: Eyes: Denies blurry vision ENT: Denies epistaxis Cardiovascular: Cardiovascular: Reports chest pain Respiratory: Respiratory: Denies cough Gastrointestinal: Gastrointestinal: Denies abdominal pain, Reports heartburn and Reports vomiting Genitourinary: Genitourinary: Denies hematuria Musculoskel
[2024-05-04] MEDS: INSULIN GLARGINE (*BKC) 100 UNITS/ML 10 UNITS SUB-Q ×2 (10:55→21:09)
[2024-05-04] MEDS: NITROGLYCERIN OINTMENT 1 INCH DOSE TRANSDERM (11:05)
[2024-05-04 11:20] LABS: Lactic Acid 1.3 mmol/L (0.7-2.0)
[2024-05-04] MEDS: MAGNESIUM SULF 2 GM/WATER 50ML 2 GM/50 ML BAG IVPB (12:45)
[2024-05-04 12:55] LABS: Glucose Point of Care 179 mg/dl (65-105)
--- NOTE | 2024-05-04 13:33 | PC.NURSE ---
Patient on way to assistant laboratory director at 1333. Patient transported by bed. grinding and polishing laborer team to resume care at this time.
--- NOTE | 2024-05-04 13:51 | WPDMODSED ---
Moderate Sedation Note-Pt Data Patient Data Allergies Allergy/AdvReac Type Severity Reaction Status Date / Time No Known Allergies Allergy Verified 05/03/24 15:09 Home Medications Medication Instructions Recorded Confirmed Type No Home Medications 05/03/24 05/03/24 History Current Medications: Active Medications Acetaminophen (Acetaminophen 325 Mg Tablet) 650 mg PO Q4H PRN PRN Reason: Mild Pain (1-3) or Fever Aspirin (Aspirin 81 Mg Chewable Tablet) 81 mg PO DAILY@0800 [facility] Last Admin: 05/04/24 09:26 Dose: 81 mg Dextrose (Dextrose 50% 25 Gm/50 Ml Syringe) 12.5 gm IV PUSH PRN PRN; Protocol PRN Reason: Hypoglycemia Glucagon (Glucagon For Inj 1 Mg Vial) 1 mg IM PRN PRN; Protocol PRN Reason: Hypoglycemia Glucose (Glucose Oral Gel 15 Gm Of Glucse In 37.5 Gm Tube) 15 gm PO PRN PRN; Protocol PRN Reason: Hypoglycemia Heparin Sodium (Porcine) (Heparin Sodium 5,000 Units/Ml Vial) 4,000 units IV PUSH PRN PRN PRN Reason: aPTT less than 55 seconds Last Admin: 05/04/24 01:53 Dose: 4,000 units Heparin Sodium (Porcine) (Heparin Sodium 5,000 Units/Ml Vial) 3,000 units IV PUSH PRN PRN PRN Reason: aPTT 55 - 70 seconds Hydralazine HCl (Hydralazine Hcl 20 Mg/Ml Vial) 10 mg IV PUSH Q4H PRN PRN Reason: Blood Pressure - High Heparin Sodium/Dextrose (Heparin Sodium/D5w 100 Units/Ml) 25,000 units in 250 mls @ 12 mls/hr IV CONT .[id number] [facility]; Protocol Last Titration: 05/04/24 09:51 Dose: 1,200 units/hr, 12 mls/hr Lactated Ringer's (Lr - Lactated Ringers Iv) 1,000 mls @ 100 mls/hr IV CONT .Q10H [facility] Last Admin: 05/04/24 09:25 Dose: 100 mls/hr Dextrose (Dextrose 5% 1,000 Ml) 1,000 mls @ 100 mls/hr IVPB PRN PRN; Protocol PRN Reason: Hypoglycemia Ceftriaxone Sodium (Rocephin 1 Gm/Ns 50 Ml) 1 gm in 50 mls @ 100 mls/hr IVPB Q24H [facility] Last Infusion: 05/04/24 01:46 Dose: Infused Insulin Aspart (Insulin Aspart (*Bkc) 100 Units/Ml) 4 - 8 units SUB-Q Q4HR [facility]; Protocol Last Admin: 05/04/24 09:48 Dose: 4 units Insulin Glargine (Insulin Glargine (*Bkc) 100 Units/Ml) 10 units SUB-Q Q12HR [facility] Last Admin: 05/04/24 10:55 Dose: 10 units Metoprolol Tartrate (Metoprolol Tartrate 25 Mg Tablet) 25 mg PO Q12HR [facility] Last Admin: 05/04/24 09:26 Dose: 25 mg Morphine Sulfate (Morphine Sulfate (*Crx) 4 Mg/Ml Inj) 4 mg IV PUSH Q2H PRN PRN Reason: Pain Rated 7-10 Nitroglycerin (Nitroglycerin Sl 0.4 Mg Tablet) 0.4 mg SUBLINGUAL Q5MIN PRN PRN Reason: Chest Pain Nitroglycerin (Nitroglycerin Ointment 1 Inch Dose) 1 inch TRANSDERM Q6HR [facility] Last Admin: 05/04/24 11:05 Dose: 1 inch Ondansetron HCl (Ondansetron Inj 4 Mg/2 Ml Vial) 4 mg IV PUSH Q4H PRN PRN Reason: Nausea Pantoprazole Sodium (Pantoprazole Sodium Iv 40 Mg Vial) 40 mg IV PUSH QAM [facility] Last Admin: 05/04/24 09:26 Dose: 40 mg Perflutren Lipid Microsphere (Perflutren Lipid Microspheres 1.5 Ml Vial Diluted To 10 Ml Total Volume) 0 ml IV PUSH ONCE PRN; Protocol PRN Reason: adequate visualization Stop: 05/06/24 22:58 Rosuvastatin Calcium (Rosuvastatin 20 Mg Tablet) 40 mg PO QAM [facility] Sedation/Anesthesia: No previous sedation/anesthesia problems (including family history). [facility] Past Medical History Medical History (Updated 05/04/24 @ 13:11 by Homero Lancaster MD) Diabetes mellitus Essential hypertension GERD (gastroesophageal reflux disease) HLD (hyperlipidemia) Surgical History Surgical History Encounter for female sterilization procedure History of Family History Family History Mother Hypertension Diabetes mellitus Social History Social History Smoking status: Never smoker Alcohol intake: never Substance use: current Substance use type: marijuana Last use: 05/03/24 Do You Feel Safe in your Home?: Yes Lack of Transportation: No Lack of Food: Heather
--- NOTE | 2024-05-04 13:52 | WPDHPUPDATE1 ---
History and Physical Update Update Date/Time: 05/04/24 13:52 History and Physical has been reviewed, including an updated exam of the patient. There are NO changes in the patient's condition. Risks, benefits, and alternatives have been discussed and questions answered. Patient agrees to proceed with procedure.
--- NOTE | 2024-05-04 14:12 | PC.NURSE ---
RN left voicemail to tobacco prevention health educator.
--- NOTE | 2024-05-04 14:13 | PC.NURSE ---
[facility] flyer was given to patient.
--- NOTE | 2024-05-04 14:36 | WPDCARDPROC ---
Cardiac Cath Procedure Note Date of procedure:: 05/04/24 Performing physician:: Lisandro Bates MD Procedure Procedure note:: CARDIAC CATHETERIZATION AND PERCUTANEOUS CORONARY INTERVENTION REPORT DATE OF PROCEDURE: 05/04/2024 INDICATION FOR PROCEDURE: Chest pain, elevated troponins BRIEF CLINICAL HISTORY: 49-year-old female with hypertension, poorly controlled diabetes mellitus, GERD, morbid obesity. Patient presented to [facility] on 05/03/2024 with complaint of chest discomfort. Her EKG showed sinus tachycardia, diffuse ST-T abnormalities suggestive of ischemia. Patient was admitted to the hospital and was initiated on anticoagulation and heparin in addition to other medication including antiplatelet treatment. She had brief intermittent episodes of chest discomfort during hospitalization. She was found to have poorly controlled DM and DKA. Coronary angiogram was recommended to rule out significant obstructive CAD. Benefits and risks of the procedure were discussed with the patient in depth, and informed consent was obtained prior to the procedure. Risks of the procedure include but are not limited to vascular complications including groin hematoma, retroperitoneal bleed, vessel perforation; periprocedural [place], cardiac arrhythmias, stroke, contrast induced nephropathy, and . After discussing all the benefits, risks and alternatives, patient was willing to proceed with the procedure. PROCEDURES PERFORMED: 1. Left heart catheterization- Selective left and right coronary angiogram; left ventriculogram and hemodynamic assessment 2. Percutaneous coronary intervention- Intravascular ultrasound ( IVUS) of left main coronary artery 3. Deployment of Mynx hemostatic device 4. Moderate sedation-CPT code 66854 and beyond MODERATE SEDATION: Midazolam 1 mg; fentanyl 25 mcg. Start time 1354 , Stop time 1430 ; Total [id number] time 36 minutes; Temi Ley RN was trained observer for moderate sedation. ACCESS SITE: Right common femoral artery PROCEDURE NOTE: After obtaining informed consent, patient was brought to catheterization lab and prepped and draped in a usual sterile manner. After local anesthesia with lidocaine, right common femoral artery access was taken with micropuncture needle followed by insertion of a 6 [place]i sheath. Selective left and right coronary angiogram was performed using 5 [place]i JL4 and JR4 catheters respectively. Orthogonal views were taken. Next, a 5 [place] pigtail catheter was advanced in the LV cavity and was flushed with normal saline. LV pressure measurement was performed. After this, left ventriculogram was performed. The catheter was flushed again, and gradient across the aortic valve was measured on the pullback of the catheter. After completion of procedure, Mynx vascular closure device was deployed with good hemostasis. Patient tolerated procedure well without any immediate procedure related complications. FINDINGS: LEFT MAIN CORONARY: left main coronary artery is large caliber and short vessel. Multiple, orthogonal views of the left main coronary artery were taken. This poorly defined narrowing at the ostium. However, good reflux of the contrast and catheter damping; and on the intravascular ultrasound, no significant stenosis was noted. LEFT ANTERIOR DESCENDING ARTERY: the LAD is a large caliber vessel, mildly tortuous, tapers distally and reaches LV apex. D1 is a small to medium caliber vessel with ostial narrowing. D2 and D3 branches are smaller caliber tortuous vessel without significant focal stenosis. LEFT CIRCUMFLEX ARTERY: Large caliber vessel, codominant vessel gives rise to a large caliber OM 1 branch and medium caliber OM2 /LPDA branch. There is mild plaque in the mid segment /Proximal segment of OM1 branch and about 50% focal narrowing just distal to the origin of the large OM1 branch. RIGHT CORONARY ARTERY: medium caliber vessel; mild plaque in the mid segment
[2024-05-04] MEDS: MORPHINE SULFATE (*CRX) 2 MG/ML INJ IV PUSH (14:50)
[2024-05-04] MEDS: HYDROcodone/acetaminophen (*CRX) 10-325 MG TABLET 1 TAB PO (16:18)
[2024-05-04] MEDS: SODIUM CHLORIDE 0.9% IV 1,000 ML 50 ML IV CONT (16:19)
[2024-05-04] MEDS: CLOPIDOGREL BISULFATE 75 MG TABLET PO (16:37)
[2024-05-04 16:53] LABS: Glucose Point of Care 193 mg/dl (65-105)
[2024-05-04] MEDS: SACUBITRIL/VALSARTAN 24-26 MG TABLET 1 TAB PO (21:09)
[2024-05-04] MEDS: carvediloL 6.25 MG TABLET PO (21:09)
[2024-05-04 22:39] LABS: Glucose Point of Care 164 mg/dl (65-105)
[2024-05-05] VITALS (15 sets, daily range): BP systolic 109–142; BP diastolic 62–87; PULSE 73–93; RESP 16–22; TEMP 36.6–37.2; O2SAT 96–100; BMI 35.2
--- NOTE | 2024-05-05 | ECHO_ITS ---
Patient Info Name: Altaf Dejesus Age: 49 years : 1975 Gender: Female Ht: 64 in Wt: 212 lbs BSA: 2.13 m2 HR: 83 bpm BP: 130 / 79 mmHg Heart Rhythm: Sinus Rhythm Technical Quality: Good Exam Date: 05/05/2024 7:44 AM Exam Location: Echo Lab Patient Status: Inpatient Admit Date: 05/03/2024 Staff Ordering Physician: Leila Voss APRN Mixing Picker Tender: Leann Robertson RDCS Attending Provider: Jeison Valentine MD Referring Physician: Bipin BOWERS; Exam Type: CA echo dop color flow w con Study Info Indications - NSTEMI Complete two-dimensional, color flow and Doppler transthoracic echocardiogram is performed with contrast to opacify the left ventricle and to improve the deliniation of the left ventricle endocardial borders. Contrast/Agitated Saline Contrast/Ag. Saline: Definity Amount: 2.00 ml Administered By: Leann Robertson RDCS Existing IV Access: Yes IV Access Condition: patent with no signs of infiltration Summary 1. Concentric left ventricular hypertrophy with normal global systolic function and grade 1 diastolic noncompliance. 2. Mild hypokinesia of the apex. 3. Mobile clot diameter approximately 1.2 cm in the left ventricular apex. 4. No valvular dysfunction. Left Ventricle Left ventricular chamber dimension is normal. Left ventricular systolic function is normal, estimated at 50-55%. There is moderate concentric increased left ventricular wall thickness. The left ventricular diastolic function is grade I diastolic dysfunction. There is mobile thrombus visualized in the left ventricle. Right Ventricle Right ventricular chamber dimension is normal. Left Atria Left atrial chamber dimension is normal. Right Atria Right atrial chamber dimension is normal. Aortic Valve The aortic valve is normal. Pulmonic Valve The pulmonic valve is normal. Mitral Valve The mitral valve has normal leaflets. Tricuspid Valve The tricuspid valve leaflets are normal. Pericardium/Pleural The pericardium appears normal. Aorta The aortic root size at the sinus of Valsalva is normal. Left Ventricular Outflow Tract Name Value Normal LVOT 2D LVOT Diameter 2.03 cm LVOT Doppler LVOT Peak Gradient 6 mmHg LVOT Mean Gradient 3 mmHg LVOT VTI 19.50 cm LVOT VTI/AV VTI Ratio 0.71 LVOT Stroke Volume 63.22 ml LVOT CO 4.94 l/min LVOT CI 2.32 L/min/m2 Pulmonic Valve Name Value Normal RVOT Doppler RVOT Peak Gradient 3 mmHg PV Doppler PV Peak Gradient 4 mmHg Mitral Valve Name Valu
[2024-05-05 00:49] LABS: Glucose Point of Care 142 mg/dl (65-105)
[2024-05-05 05:00] LABS: Basophils Absolute Auto 0.1 K/mm3 (0.0-0.1); Basophils Percent Auto 0.7 % (0.2-1.2); Eosinophils Absolute Auto 0.1 K/mm3 (0-0.3); Eosinophils Percent Auto 0.5 % (0-4.4); Hematocrit 39.2 % (37.0-47.0); Hemoglobin 12.9 g/dL (12.0-15.0); Immature Granulocyte Absolute 0.03 K/mm3 (0.00-0.031); Immature Granulocyte Percent A 0.3 % (0-0.5); Lymphocytes Absolute Auto 1.98 K/mm3 (0.9-3.2); Lymphocytes Percent Auto 20.3 % (18.3-44.2); Mean Corpuscular HGB Conc 32.9 g/dl (32-36); Mean Corpuscular Hemoglobin 30.8 pg (26-34); Mean Corpuscular Volume 93.6 fl (80-100); Mean Platelet Volume 10.1 fl (7.4-10.4); Monocytes Absolute Auto 0.9 K/mm3 (0.1-0.6); Monocytes Percent Auto 9.4 % (2.6-8.5); Neutrophils Absolute Auto 6.7 K/mm3 (1.3-6.7); Neutrophils Percent Auto 68.8 % (45.5-73.1); Platelet Count Result 258 k/mm3 (150-375); Red Blood Count 4.19 M/mm3 (4.2-5.4); Red Cell Distribution Width 12.3 % (11.5-14.5); White Blood Count 9.8 K/mm3 (4.5-10.0)
[2024-05-05 05:12] LABS: Alanine Aminotransferase 14 U/L (6-35); Albumin Level 3.2 g/dL (3.5-5.1); Alkaline Phosphatase 82 U/L (38-126); Anion Gap 7 mmol/L (4-12); Aspartate Amino Transferase 19 U/L (14-36); Bilirubin,Total 0.8 mg/dL (0.2-1.3); Blood Urea Nitrogen 20 mg/dL (7-17); Carbon Dioxide 27 mmol/L (22-30); Chloride 97 mmol/L (98-107); Estimated CRCL calculation 75 ml/min; Estimated Glomerular Filt Rate > 60; Glucose 134 mg/dL (65-110); Magnesium 1.9 mg/dL (1.6-2.3); Phosphorus 2.5 mg/dL (2.5-4.5); Potassium 3.5 mmol/L (3.4-5.0); Sodium 131 mmol/L (137-145)
[2024-05-05 07:46] LABS: Glucose Point of Care 204 mg/dl (65-105)
[2024-05-05] MEDS: PERFLUTREN LIPID MICROSPHERES 1.5 ML VIAL DILUTED TO 10 ML TOTAL VOLUME IV PUSH (08:00)
--- NOTE | 2024-05-05 08:46 | IVDEFINITY ---
Prior to administration of IV Definity the patient was educated on the risks and benefits of the imaging enhancing agent including potential adverse side effects. The patient verbalized understanding. Allergies were verified. No exclusion criteria were identified and at least one of the following inclusion criteria were met: 1) physician request, 2) patient technically difficult to image (per the [employer]ocardi[employer] guidelines of two or more segments not discernable within the apical view), or 3) questionable left ventricular function. ?
[2024-05-05] MEDS: POTASSIUM CHLORIDE 20 MEQ ER TABLET 40 MEQ PO (09:46)
[2024-05-05] MEDS: ASPIRIN 81 MG CHEWABLE TABLET PO (09:46)
[2024-05-05] MEDS: MAGNESIUM SULF 2 GM/WATER 50ML 2 GM/50 ML BAG IVPB (09:46)
[2024-05-05] MEDS: carvediloL 6.25 MG TABLET PO ×2 (09:46→20:21)
[2024-05-05] MEDS: CLOPIDOGREL BISULFATE 75 MG TABLET PO (09:47)
[2024-05-05] MEDS: INSULIN GLARGINE (*BKC) 100 UNITS/ML 10 UNITS SUB-Q (09:47)
[2024-05-05] MEDS: PANTOPRAZOLE SODIUM IV 40 MG VIAL IV PUSH (09:47)
[2024-05-05] MEDS: SACUBITRIL/VALSARTAN 24-26 MG TABLET 1 TAB PO ×2 (09:47→20:21)
[2024-05-05] MEDS: ROSUVASTATIN 20 MG TABLET 40 MG PO (09:47)
[2024-05-05] MEDS: FUROSEMIDE 40 MG TABLET PO (09:47)
[2024-05-05] MEDS: INSULIN ASPART (*BKC) 100 UNITS/ML SUB-Q ×2 (09:48→11:43)
[2024-05-05] MEDS: APIXABAN 5 MG TABLET PO ×2 (10:54→20:21)
--- NOTE | 2024-05-05 11:41 | WPDINTPN ---
Progress Note: A&P Assessment and Plan (1) Non-ST elevation SD (NSTEMI): Code(s): I21.4 - Non-ST elevation (NSTEMI) myocardial infarction Status: Acute Assessment and Plan: 05/03: Patient presented with chest pain, consistent with NSTEMI. -continue heparin infusion -patient continues to be symptomatic with intermittent chest pain -EKG abnormalities has been worrisome . -appreciate cardiology evaluation and recommendations -05/04: Coronary angiogram showed takotsubo cardiomyopathy, LV ejection fraction was approximately 30%, LVEDP was significantly elevated at 32 mmHg -patient currently on aspirin, carvedilol, clopidogrel, Lasix, rosuvastatin, Entresto -echocardiogram showed a mobile clot, patient started apixaban -05/05/2024: Echocardiogram Summary 1. Concentric left ventricular hypertrophy with normal global systolic function and grade 1 diastolic noncompliance., EF 50-55% 2. Mild hypokinesia of the apex. 3. Mobile clot diameter approximately 1.2 cm in the left ventricular apex. 4. No valvular dysfunction. (2) Hyperlipidemia LDL goal <55: Code(s): E78.5 - Hyperlipidemia, unspecified Status: Acute Assessment and Plan: Continue rosuvastatin (3) DKA (diabetic ketoacidosis): Code(s): E11.10 - Type 2 diabetes mellitus with ketoacidosis without coma Status: Acute Assessment and Plan: Patient presented with hyperkalemia, was in diabetic ketoacidosis, was started on insulin infusion per DKA protocol -patient currently off insulin infusion -continue sliding scale insulin and low-dose Lantus (4) Diabetes mellitus: Code(s): E11.9 - Type 2 diabetes mellitus without complications Status: Acute Assessment and Plan: History of diabetes, patient has been out of her metformin -hemoglobin A1c is 10.8 this admission -continue treatment as above (5) Essential hypertension: Code(s): I10 - Essential (primary) hypertension Status: Acute Assessment and Plan: Patient on Coreg, Entresto Plan DVT prophylaxis: Apixaban Stress ulcer prophylaxis: Protonix IV Nutrition: Heart healthy and diabetic diet Code Status: Full code Critical Care Time Spent: 33 minutes May transfer out of the ICU if okay with hospitalist and Cardiology Discussed with patient and updated with her condition and plan of care. She is aware that she will having coronary angiogram procedure. Due to a high probability of clinically significant, life threatening deterioration, the patient required my highest level of preparedness to intervene emergently and I personally spent this critical care time directly and personally managing the patient. This critical care time included obtaining a history; examining the patient; pulse oximetry; ordering and review of studies; arranging urgent treatment with development of a management plan; evaluation of patient's response to treatment; frequent reassessment; and discussions with other providers. It was exclusive of separately billable procedures and treating other patients and teaching time. Please see Assessment and Plan section and the rest of the note for further information on patient assessment and treatment This dictation may have been done utilizing a voice recognition system. Attempts have been made to correct errors. However, there may be uncorrected grammatical, spelling, and recognitions errors present. Subjective Date/time seen: 05/05/24 11:41 Interval history: Reason for consult: Chest pain, DKA, NSTEMI, nausea, vomiting. 05/05/2024: Patient seen and examined the ICU, denies any chest pain, shortness on breath, abdominal pain, nausea, vomiting at this time. Coronary angiogram done yesterday showed takotsubo cardiomyopathy. Hemodynamically stable, adequate urine output, afebrile. Blood sugars have been stable Review of Systems Review of Systems: All systems reviewed & are unremarkable except as noted in HPI an
[2024-05-05 11:42] LABS: Glucose Point of Care 252 mg/dl (65-105)
--- NOTE | 2024-05-05 15:09 | PM.PNCARD ---
Progress Note: A&P Assessment and Plan (1) Non-ST elevation IA (NSTEMI): Code(s): I21.4 - Non-ST elevation (NSTEMI) myocardial infarction Status: Acute Assessment and Plan: Not found to have obstructive CAD by coronary angiogram (2) Hyperlipidemia LDL goal <55: Code(s): E78.5 - Hyperlipidemia, unspecified Status: Acute Assessment and Plan: Start rosuvastatin 40 mg daily (3) Diabetes mellitus: Code(s): E11.9 - Type 2 diabetes mellitus without complications Status: Acute Assessment and Plan: Her ICU and hospitalist teams (4) Essential hypertension: Code(s): I10 - Essential (primary) hypertension Status: Acute Assessment and Plan: Above goal. Will start losartan before discharge (5) Takotsubo cardiomyopathy: Code(s): I51.81 - Takotsubo syndrome Status: Acute Assessment and Plan: Continue medical therapy with Coreg, Entresto (6) LV (left ventricular) mural thrombus: Code(s): I51.3 - Intracardiac thrombosis, not elsewhere classified Status: Acute Assessment and Plan: Started on Eliquis Subjective Date/time seen: 05/05/24 15:09 Interval history: Cardiology follow up for cardiomyopathy No acute events overnight. Feeling better today, no complaints. Review of Systems Review of Systems: All systems reviewed & are unremarkable except as noted in HPI and below Constitutional: Constitutional: Reports no additional constitutional complaints, Denies chills and Denies excessive sweating Eyes: Eyes: Denies blurry vision ENT: Denies epistaxis Cardiovascular: Cardiovascular: Reports chest pain Respiratory: Respiratory: Denies cough Gastrointestinal: Gastrointestinal: Denies abdominal pain, Reports heartburn and Reports vomiting Genitourinary: Genitourinary: Denies hematuria Musculoskeletal: Musculoskeletal: Denies abnormal gait and Denies back pain Integumentary/Breasts: Skin/Breast: Denies erythema Neurologic: Denies abnormal gait and Denies behavioral changes Psychiatric: Psychiatric: Denies behavioral changes Endocrine: Endocrine: Denies excessive sweating Hematologic/Lymphatic: Hematologic/Lymphatic: Denies easy bleeding Allergic/Immunologic: Allergic/Immunologic: Denies GI upset with certain foods Exam Narrative: Patient awake alert oriented appears stated age Const: General: comfortable and no acute distress HENMT: Face/Nose/Sinus: Normal nares present Mouth: Yes moist mucous membranes Eyes: General: appearance normal, both eyes and all related structures Sclera: sclerae normal Neck: Neck: supple and no JVD Carotids: no bruits Chest: Other: No reproducible chest wall pain to palpation Resp: Effort & Inspection: normal respiratory effort Auscultation: clear to auscultation bilaterally Cardio: Rate: regular rate Rhythm: regular rhythm Heart sounds: no murmurs GI: Inspection: non-distended Auscultation: normal bowel sounds Skin: General skin exam: normal color Neuro: Speech: normal speech Sensory Exam: normal sensation Extrem: General: normal to inspection Psych: Mental Status: mental status grossly normal Affect: normal affect Objective Data Vital Signs Vital Signs: Vital Signs - 24 hr 05/04/24 15:16 05/04/24 15:16 05/04/24 15:31 Temperature Pulse Rate 87 86 87 Respiratory Rate 18 20 19 Blood Pressure 157/95 H 152/94 H 164/95 H Pulse Oximetry 99 99 98 Oxygen Delivery Fraction of Inspired Oxygen 05/04/24 15:46 05/04/24 16:01 05/04/24 16:31 Temperature Pulse Rate 90 91 87 Respiratory Rate 18 12 19 Blood Pressure 176/99 H 170/93 H 170/93 H Pulse Oximetry 98 98 99 Oxygen Delivery Fraction of Inspired Oxygen 05/04/24 17:01 05/04/24 17:31 05/04/24 18:31 Temperature Pulse Rate 86 85 82 Respiratory Rate 25 H 24 H 23 H Blood Pressure 150/83 H 148/72 H 147/82 H Pulse Oximetry 98 98 98 Oxygen Delivery
--- NOTE | 2024-05-05 15:54 | PM.IMPN ---
Progress Note: A&P Assessment and Plan (1) Non-ST elevation VA (NSTEMI): Code(s): I21.4 - Non-ST elevation (NSTEMI) myocardial infarction Status: Acute Assessment and Plan: Patient presents with chest pain. She has risk factor of DM and HLD that are untreated. Non-smoker. CXR clear. EKG sinus tachycardia (118) with short RI interval, possible LAE, consider anterior infarct age indeterminate, ST-T-wave abnormality in diffuse leads consider ischemia, baseline wander. Repeat EKG showing similar findings. CTA chest/abdomen/pelvis: 1. Normal caliber thoracic and abdominal aorta with no dissection. 2. Small sliding-type hiatal hernia with mild wall thickening distal esophagus which could be related to esophagitis such as in the setting of reflux. 3. 2.1 cm left thyroid nodule. Consider thyroid ultrasound for stratification. 4. No acute intra-abdominal/pelvic process. 5. No pulmonary embolism. Troponin: 1.66 on admission but trending down since then ASA 324 and sublingual nitro given, SL nitro p.r.n. available and started on heparin gtt Cardiology consulted and patient underwent a LHC on 05/04/24 showing no significant disease was seen at the ostium of the left main coronary artery on IVUS. Patient has narrowing at the ostium of the small to medium caliber diagonal branch; and 50% stenosis in the mid LCX, which can be managed medically. Left ventriculogram showed findings suggestive of takotsubo cardiomyopathy with severely elevated LVEDP. Suspect Type II VA related to the takotsubo cardiomyopathy Continue aggressive medical management (2) Takotsubo cardiomyopathy: Code(s): I51.81 - Takotsubo syndrome Status: Acute Assessment and Plan: LHC showing left ventriculogram showed findings suggestive of takotsubo cardiomyopathy with severely elevated LVEDP. Echo today showing improved EF of 50-55% with concentric LV hypertrophy with normal global systolic function and grade 1 diastolic noncompliance. Mild hypokinesia of the apex and a mobile clot diameter approximately 1.2 cm in the left ventricular apex. Eliquis started for LV thrombus. Continue Coreg, Entresto and Lasix. Add Empagliflozin. Add Spironlactone? (3) DKA (diabetic ketoacidosis): Code(s): E11.10 - Type 2 diabetes mellitus with ketoacidosis without coma Status: Acute Assessment and Plan: Initial glucose 407, gap open, beta hydroxy 2.37, and 2+ ketones in urine. A1c 10.8%. DKA and hypoglycemia protocol started. Started on insulin GTT and given fluid bolus Gap now closed. Insulin drip changed to lantus certified adaptive physical educator consulted and discussed with her. Meter was given to the patient. Add Empaglifloin. (4) Sepsis: Qualifiers: Sepsis type: sepsis due to unspecified organism Sepsis acute organ dysfunction status: without acute organ dysfunction Qualified Code(s): A41.9 - Sepsis, unspecified organism Code(s): A41.9 - Sepsis, unspecified organism Status: Acute Assessment and Plan: Meets SIRS criteria with elevated HR and WBC. No hypoxia or hypotension. Probably related to NSTEMI and/or DKA and/or UTI Patient received appropriate of fluid resuscitation. Lactic acid: 2.7 -> 1.5 UA is consistent with UTI. Cx collected. Old cultures reviewed. Rocephin started. UCx negative. BCx NGTD in one set. Continue abx for now. (5) KVNG (acute kidney injury): Code(s): N17.9 - Acute kidney failure, unspecified Status: Acute Assessment and Plan: Creatinine 1.5 and GFR 45. Previously at 0.9 and GFR >60 in February of 2022 Suspect KVNG is secondary to nausea, vomiting, dehydration, UTI, DKA. Given IV fluids and started on antibiotics. Cr now normal. Trend renal function, electrolytes and UOP (6) Hyperlipidemia LDL goal <55: Code(s): E78.5 - Hyperlipidemia, unspecified Status: Acute Assessment and Plan: TG 278, TC 504, LDL 392 and HDL 32. Crestor started. She wi
[2024-05-05 17:03] LABS: Glucose Point of Care 138 mg/dl (65-105)
[2024-05-05] MEDS: EMPAGLIFLOZIN 10 MG TABLET PO (17:22)
[2024-05-05] MEDS: metFORMIN HCL 250 MG TABLET PO (17:22)
--- NOTE | 2024-05-05 18:20 | PC.NURSE ---
This patient, Altaf Dejesus, was transferred to [[id number]] on 05/05/24 at 1820. Personal belongings sent with patient. Report given to [Jolanta BLUM]. Appropriate documentation sent with patient.
[2024-05-05] MEDS: ACETAMINOPHEN 325 MG TABLET 650 MG PO (18:32)
[2024-05-05 20:21] LABS: Glucose Point of Care 187 mg/dl (65-105)
[2024-05-05] MEDS: INSULIN GLARGINE (*BKC) 100 UNITS/ML 12 UNITS SUB-Q (20:25)
[2024-05-06] VITALS (12 sets, daily range): BP systolic 100–136; BP diastolic 53–80; PULSE 71–98; RESP 16–18; TEMP 36.1–36.9; O2SAT 92–100
[2024-05-06 05:05] LABS: Basophils Absolute Auto 0.1 K/mm3 (0.0-0.1); Basophils Percent Auto 1.1 % (0.2-1.2); Eosinophils Absolute Auto 0.2 K/mm3 (0-0.3); Eosinophils Percent Auto 1.4 % (0-4.4); Hematocrit 48.7 % (37.0-47.0); Hemoglobin 14.8 g/dL (12.0-15.0); Immature Granulocyte Absolute 0.09 K/mm3 (0.00-0.031); Immature Granulocyte Percent A 0.9 % (0-0.5); Lymphocytes Absolute Auto 1.72 K/mm3 (0.9-3.2); Lymphocytes Percent Auto 16.5 % (18.3-44.2); Mean Corpuscular HGB Conc 30.4 g/dl (32-36); Mean Corpuscular Hemoglobin 31.4 pg (26-34); Mean Corpuscular Volume 103.2 fl (80-100); Mean Platelet Volume 10.5 fl (7.4-10.4); Monocytes Absolute Auto 0.9 K/mm3 (0.1-0.6); Monocytes Percent Auto 8.5 % (2.6-8.5); Neutrophils Absolute Auto 7.5 K/mm3 (1.3-6.7); Neutrophils Percent Auto 71.6 % (45.5-73.1); Platelet Count Result 155 k/mm3 (150-375); Red Blood Count 4.72 M/mm3 (4.2-5.4); Red Cell Distribution Width 12.6 % (11.5-14.5); White Blood Count 10.5 K/mm3 (4.5-10.0)
[2024-05-06 06:21] LABS: Glucose Point of Care 108 mg/dl (65-105)
[2024-05-06 06:42] LABS: Alanine Aminotransferase 17 U/L (6-35); Albumin Level 3.6 g/dL (3.5-5.1); Alkaline Phosphatase 89 U/L (38-126); Anion Gap 9 mmol/L (4-12); Aspartate Amino Transferase 27 U/L (14-36); Blood Urea Nitrogen 16 mg/dL (7-17); Calcium 8.1 mg/dL (8.4-10.2); Carbon Dioxide 27 mmol/L (22-30); Chloride 97 mmol/L (98-107); Estimated CRCL calculation 76 ml/min; Estimated Glomerular Filt Rate > 60; Glucose 107 mg/dL (65-110); Magnesium 2.2 mg/dL (1.6-2.3); Phosphorus 2.2 mg/dL (2.5-4.5); Potassium 4.2 mmol/L (3.4-5.0); Sodium 133 mmol/L (137-145)
[2024-05-06] MEDS: ROSUVASTATIN 20 MG TABLET 40 MG PO (08:35)
[2024-05-06] MEDS: POTASSIUM/PHOSPHORUS/SODIUM 1.5 GM PACKET 1 PACKET PO (08:35)
[2024-05-06] MEDS: SACUBITRIL/VALSARTAN 24-26 MG TABLET 1 TAB PO (08:36)
[2024-05-06] MEDS: APIXABAN 5 MG TABLET PO (08:36)
[2024-05-06] MEDS: PANTOPRAZOLE 40 MG TABLET PO (08:36)
[2024-05-06] MEDS: carvediloL 6.25 MG TABLET PO (08:37)
[2024-05-06] MEDS: ASPIRIN 81 MG CHEWABLE TABLET PO (08:37)
[2024-05-06] MEDS: ACETAMINOPHEN 325 MG TABLET 650 MG PO (08:37)
[2024-05-06] MEDS: EMPAGLIFLOZIN 10 MG TABLET PO (08:37)
[2024-05-06] MEDS: FUROSEMIDE 40 MG TABLET PO (08:38)
[2024-05-06] MEDS: metFORMIN HCL 250 MG TABLET PO ×2 (08:38→16:58)
--- NOTE | 2024-05-06 10:40 | PM.PNCARD ---
Progress Note: A&P Assessment and Plan (1) Non-ST elevation DE (NSTEMI): Code(s): I21.4 - Non-ST elevation (NSTEMI) myocardial infarction Status: Acute Assessment and Plan: Not found to have obstructive CAD by coronary angiogram, elevated troponin related to Takotsubo CMY. (2) Hyperlipidemia LDL goal <55: Code(s): E78.5 - Hyperlipidemia, unspecified Status: Acute Assessment and Plan: Start rosuvastatin 40 mg daily (3) Diabetes mellitus: Code(s): E11.9 - Type 2 diabetes mellitus without complications Status: Acute Assessment and Plan: Per hospitalist team (4) Essential hypertension: Code(s): I10 - Essential (primary) hypertension Status: Acute Assessment and Plan: Improved (5) Takotsubo cardiomyopathy: Code(s): I51.81 - Takotsubo syndrome Status: Acute Assessment and Plan: Supportive care and medical therapy. Continte Entresto, coreg. Not in decompensated heart failure. (6) LV (left ventricular) mural thrombus: Code(s): I51.3 - Intracardiac thrombosis, not elsewhere classified Status: Acute Assessment and Plan: Started on DOAC Subjective Date/time seen: 05/06/24 10:40 Interval history: Cardiology follow up for cardiomyopathy No acute events overnight. Feeling better today, no complaints. Date of service 05/06/2024: She feels well today and has no cardiovascular complaints. Feels like she is getting a migraine. Review of Systems Review of Systems: All systems reviewed & are unremarkable except as noted in HPI and below Constitutional: Constitutional: Reports no additional constitutional complaints, Denies chills and Denies excessive sweating Eyes: Eyes: Denies blurry vision ENT: Denies epistaxis Cardiovascular: Cardiovascular: Reports chest pain Respiratory: Respiratory: Denies cough Gastrointestinal: Gastrointestinal: Denies abdominal pain, Reports heartburn and Reports vomiting Genitourinary: Genitourinary: Denies hematuria Musculoskeletal: Musculoskeletal: Denies abnormal gait and Denies back pain Integumentary/Breasts: Skin/Breast: Denies erythema Neurologic: Denies abnormal gait and Denies behavioral changes Psychiatric: Psychiatric: Denies behavioral changes Endocrine: Endocrine: Denies excessive sweating Hematologic/Lymphatic: Hematologic/Lymphatic: Denies easy bleeding Allergic/Immunologic: Allergic/Immunologic: Denies GI upset with certain foods Exam Narrative: Patient awake alert oriented appears stated age Const: General: comfortable and no acute distress HENMT: Face/Nose/Sinus: Normal nares present Mouth: Yes moist mucous membranes Eyes: General: appearance normal, both eyes and all related structures Sclera: sclerae normal Neck: Neck: supple and no JVD Carotids: no bruits Chest: Other: No reproducible chest wall pain to palpation Resp: Effort & Inspection: normal respiratory effort Auscultation: clear to auscultation bilaterally Cardio: Rate: regular rate Rhythm: regular rhythm Heart sounds: no murmurs GI: Inspection: non-distended Auscultation: normal bowel sounds Skin: General skin exam: normal color Neuro: Speech: normal speech Sensory Exam: normal sensation Extrem: General: normal to inspection Psych: Mental Status: mental status grossly normal Affect: normal affect Objective Data Vital Signs Vital Signs: Vital Signs - 24 hr 05/05/24 12:00 05/05/24 12:00 05/05/24 12:00 Temperature 36.9 C Pulse Rate 86 86 Respiratory Rate 16 Blood Pressure 111/76 Pulse Oximetry 99 Oxygen Delivery Room Air 05/05/24 14:00 05/05/24 16:00 05/05/24 16:00 Temperature Pulse Rate 83 86 Respiratory Rate Blood Pressure Pulse Oximetry Oxygen Delivery Room Air 05/05/24 16:00 05/05/24 18:00 05/05/24 18:57 Temperature 36.8 C 37.1 C Pulse Rate 79 84 82 Respiratory Rate 20 20 Blood Pr
[2024-05-06 12:30] LABS: Glucose Point of Care 146 mg/dl (65-105)
[2024-05-06] MEDS: traMADol HCL (*CRX) 25 MG TABLET PO (15:03)
--- NOTE | 2024-05-06 15:40 | PM.DS ---
DS: Admitting Diagnosis Discharge Date 05/06/24 Admitting Diagnosis Chest pain DS: Discharge Diagnosis Discharge Diagnosis (1) Non-ST elevation SD (NSTEMI): Code(s): I21.4 - Non-ST elevation (NSTEMI) myocardial infarction Status: Acute (2) Takotsubo cardiomyopathy: Code(s): I51.81 - Takotsubo syndrome Status: Acute (3) LV (left ventricular) mural thrombus: Code(s): I51.3 - Intracardiac thrombosis, not elsewhere classified Status: Acute (4) DKA (diabetic ketoacidosis): Code(s): E11.10 - Type 2 diabetes mellitus with ketoacidosis without coma Status: Acute (5) Sepsis: Qualifiers: Sepsis type: sepsis due to unspecified organism Sepsis acute organ dysfunction status: without acute organ dysfunction Qualified Code(s): A41.9 - Sepsis, unspecified organism Code(s): A41.9 - Sepsis, unspecified organism Status: Acute (6) KVNG (acute kidney injury): Code(s): N17.9 - Acute kidney failure, unspecified Status: Acute (7) Hyperlipidemia LDL goal <55: Code(s): E78.5 - Hyperlipidemia, unspecified Status: Acute (8) Diabetes mellitus: Code(s): E11.9 - Type 2 diabetes mellitus without complications Status: Acute (9) Left thyroid nodule: Code(s): E04.1 - Nontoxic single thyroid nodule Status: Acute (10) Essential hypertension: Code(s): I10 - Essential (primary) hypertension Status: Acute DS: Summary Hospital Course Reason for hospitalization: 49yo female with DM and HLD here for chest pain. Please see H&P for details. Hospital Course: Patient presents with chest pain. She has risk factor of DM and HLD that are untreated. Non-smoker. CXR clear. EKG sinus tachycardia (118) with short NE interval, possible LAE, consider anterior infarct age indeterminate, ST-T-wave abnormality in diffuse leads consider ischemia, baseline wander. Repeat EKG showing similar findings. CTA chest/abdomen/pelvis: 1. Normal caliber thoracic and abdominal aorta with no dissection. 2. Small sliding-type hiatal hernia with mild wall thickening distal esophagus which could be related to esophagitis such as in the setting of reflux. 3. 2.1 cm left thyroid nodule. Consider thyroid ultrasound for stratification. 4. No acute intra-abdominal/pelvic process. 5. No pulmonary embolism. Troponin: 1.66 on admission but trending down since then. ASA 324 and sublingual nitro given, SL nitro p.r.n. available and started on heparin gtt. Cardiology consulted and patient underwent a LHC on 05/04/24 showing no significant disease was seen at the ostium of the left main coronary artery on IVUS. Patient has narrowing at the ostium of the small to medium caliber diagonal branch and 50% stenosis in the mid LCX, which can be managed medically. Left ventriculogram showed findings suggestive of takotsubo cardiomyopathy with severely elevated LVEDP. Suspect Type II SD related to the takotsubo cardiomyopathy. Echo showing improved EF of 50-55% with concentric LV hypertrophy with normal global systolic function and grade 1 diastolic noncompliance. Mild hypokinesia of the apex and a mobile clot diameter approximately 1.2 cm in the left ventricular apex. Eliquis started for LV thrombus. Treated with Coreg, Entresto and Lasix. Added Empagliflozin. Initial glucose 407, gap open, beta hydroxy 2.37, and 2+ ketones in urine. A1c 10.8%. DKA and hypoglycemia protocols started. Started on insulin GTT and given fluid bolus. Gap now closed. Insulin drip changed to lantus. clinical document improvement educator consulted and discussed with her. Meter was given to the patient. Patient met SIRS criteria with elevated HR and WBC. No hypoxia or hypotension. Probably related to NSTEMI and/or DKA. Patient received appropriate of fluid resuscitation. Lactic acid: 2.7 -> 1.5. UA is consistent with UTI. Cx collected. Old cultures reviewed. Rocephin started. UCx essentially negative. BCx NGTD. Abx stopp
[2024-05-06 16:16] LABS: Glucose Point of Care 126 mg/dl (65-105)
[2024-05-09 08:56] LABS: T3 Free 2.7 pg/mL
== END 2024-05-06 17:18 | disposition home or self-care (01) | DRG 192 ==
LOC: ANHED 16:16 → ANHICU 19:50 → ANHIMU 05-05 18:24
PROVIDERS: Emergency Medicine; Internal Medicine; Internal Medicine Cardiovascular Disease; Student in an Organized Health Care Education/Training Program; Admitting Provider Internal Medicine; Emergency Provider Student in an Organized Health Care Education/Training Program; Visit Provider Internal Medicine
PROC: 4A023N7 Measurement of Cardiac Sampling and Pressure, Left Heart, Percutaneous Approach (ICD-10-PCS; CPT 93452; principal; 2024-05-04 13:10)
PROC: 4A023N7 Measurement of Cardiac Sampling and Pressure, Left Heart, Percutaneous Approach (ICD-10-PCS; 2024-05-04 13:10)
PROC: 4A023N7 Measurement of Cardiac Sampling and Pressure, Left Heart, Percutaneous Approach (ICD-10-PCS; 2024-05-04 13:10)
DX: I51.81 Takotsubo syndrome (principal); R65.10 Systemic inflammatory response syndrome (SIRS) of non-infectious origin without acute organ dysfunction; I25.10 Atherosclerotic heart disease of native coronary artery without angina pectoris; I51.3 Intracardiac thrombosis, not elsewhere classified; E11.10 Type 2 diabetes mellitus with ketoacidosis without coma; D75.839 Thrombocytosis, unspecified; I21.A1 Myocardial infarction type 2; E83.52 Hypercalcemia; E86.0 Dehydration; E11.65 Type 2 diabetes mellitus with hyperglycemia; N17.9 Acute kidney failure, unspecified; K44.9 Diaphragmatic hernia without obstruction or gangrene; K21.9 Gastro-esophageal reflux disease without esophagitis; E04.1 Nontoxic single thyroid nodule; D72.829 Elevated white blood cell count, unspecified; E78.5 Hyperlipidemia, unspecified; Z68.36 Body mass index [BMI] 36.0-36.9, adult; E66.01 Morbid (severe) obesity due to excess calories
CPT/HCPCS: 36415; 71046; 71275; 74174; 76536; 80048; 80053; 80061; 80307; 81001; 82010; 82948; 83036; 83605; 83690; 83735; 84100; 84145; 84439; 84443; 84480; 84484; 85025; 85380; 85610; 85730; 87040; 87086; 87088; 87641; 92978; 93005; 93458; 93970; 96374; 99285; A9270; C1753; C1769; C1887; C1894; C8929; G0269; J0583; J0696; J1644; J1815; J1940; J2250; J2270; J2305; J2470; J3010; J3475; J7030; J7040; J7120; L1830; Q9957; Q9967

== ENCOUNTER 2025-06-12 15:29 | Observation (INO) | payer OTHER, SELFPAY ==
--- OUTSIDE RECORDS SUMMARY | 2016-02-02 05:30 | XMS_ITS | Continuity of Care Document ---
Author Organization [employer]. 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 [facility], [id number], [place]. tel:[phone] Referring Provider: IVANA WU, [address] [place], [address]. tel:[phone] Family History Family Member Type Diagnosis Age At Onset No Information Payers Payer name Insurance type Covered democrat ID Authoriza tion(s) [facility] INDEMNITY [id number] Social History Type Description Quantity Date Captured Comments Sex Female Smoking Status No Information Chief Complaint And Reason For Visit No Information History Of Present Illness Encounter Date Complaint History Of Prese nt Illness No Information Instructions Date Instruction Additional Infor mation No Information Assessments Type Assessment Date No Information
--- OUTSIDE RECORDS SUMMARY | 2016-02-02 05:30 | XMS_ITS | Continuity of Care Document ---
Author Organization [employer]. 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 [facility], [id number], [place]. tel:[phone] Referring Provider: IVANA WU, [address] [place], [address]. tel:[phone] Family History Family Member Type Diagnosis Age At Onset No Information Payers Payer name Insurance type Covered democrat ID Authoriza tion(s) [facility] INDEMNITY [id number] Social History Type Description Quantity Date Captured Comments Sex Female Smoking Status No Information Chief Complaint And Reason For Visit No Information History Of Present Illness Encounter Date Complaint History Of Prese nt Illness No Information Instructions Date Instruction Additional Infor mation No Information Assessments Type Assessment Date No Information
[2025-06-12] VITALS (18 sets, daily range): BP systolic 142–183; BP diastolic 76–114; PULSE 78–120; RESP 9–27; TEMP 36.3–36.7; O2SAT 92–100; BMI 35.6
--- NOTE | ~2025-06-12 | CT_ITS ---
EXAMINATION: CTA chest abdomen pelvis DATE: 06/12/2025 20:34 INDICATION: Retrosternal and epigastric pain. TECHNIQUE: Computed tomographic angiography (CTA) of the chest, abdomen, and pelvis was performed without and with 100 mL Omnipaque-350 intravenous contrast. Automated exposure control and iterative reconstruction technique were employed. The dose-length product was 1244.91 mGy-cm. COMPARISON: 05/03/2024 FINDINGS: Chest: Lungs are clear with no focal airspace disease, pulmonary edema, pleural effusion or pneumothorax. Heart size is normal. No pericardial effusion. Thoracic aorta is normal in caliber with no dissection. There is also could contrast opacification of the pulmonary arteries demonstrating no pulmonary embolism. Calcified precarinal lymph nodes consistent with old granulomatous disease. No pathologically enlarged thoracic lymphadenopathy. There is persistent mild wall thickening the distal esophagus which could be seen with esophagitis. Moderate lower cervical and mild thoracic spondylosis. Abdomen and pelvis: Diffuse hepatic steatosis with focal sparing along the gallbladder fossa. Spleen, pancreas, bilateral adrenal glands and kidneys are normal. Bowels including the appendix are normal. Bladder, anteverted uterus and bilateral adnexa are unremarkable. No free intraperitoneal gas or fluid. No pathologically enlarged abdominal or pelvic lymphadenopathy. Abdominal aorta is normal in caliber with no dissection. Incidentally noted are small bilateral accessory renal arteries. Mild lumbar spondylosis. IMPRESSION: 1. No acute cardiopulmonary disease. 2. Mild wall thickening the distal esophagus which could be seen with esophagitis. 3. No acute intra-abdominal/pelvic process. Reviewed, dictated and finalized at location A. IMPRESSION: 1. No acute cardiopulmonary disease. 2. Mild wall thickening the distal esophagus which could be seen with esophagit is. 3. No acute intra-abdominal/pelvic process.
--- NOTE | ~2025-06-12 | XR_ITS ---
EXAMINATION: XR chest 2V DATE: 06/12/2025 16:00 INDICATION: Chest pain, heartburn and nausea TECHNIQUE: PA and lateral views of the chest were obtained. COMPARISON: Chest radiograph and CT dated 05/03/2024 FINDINGS: The lungs are clear with no focal airspace opacities, pulmonary edema, pleural effusion or pneumothorax. The cardiomediastinal silhouette is normal. Visualized bones and soft tissues are unremarkable. IMPRESSION: 1. No acute cardiopulmonary disease. Reviewed, dictated and finalized at location A.
--- NOTE | 2025-06-12 15:32 | ECG_ITS ---
Test Date: 2025-06-12 15:36:15 Measurements Intervals [place] Rate: 110 P: 34 VA: 132 QRS: 59 QRSD: 97 T: 50 QT: 335 QTc: 455 Interpretive Statements SINUS TACHYCARDIA NONSPECIFIC ST & T-WAVE ABNORMALITY- DIFFUSE LEADS ABNORMAL ECG Compared to ECG 05/04/2024 07:51:39 HEART RATE HAS INCREASED Possible ischemia no longer present Electronically Signed On 06-12-2025 15:52:33 CDT by Wu Franco D.O.
--- OUTSIDE RECORDS SUMMARY | 2025-06-12 15:32 | XMS_ITS | Clinical Summary ---
Author Organization [facility] [address] Address [address] [place] [address] Care Team Providers Care Collection Clerk Name Role Phone Sneha Schwarz NP Primary Care Provider [phone] Allergies No known active allergies Medications aspirin 81 mg chewable tablet Take 1 tablet (81 mg total) by mouth daily 06/07/20 24 Active carvediloL (COREG) 6.25 mg tabletIndications :Takotsubo cardiomyopathy Take 1 tablet (6.25 mg total) by mouth 2 (two) times a day with meals 180 tablet 3 07/03/20 24 Active Jardiance 10 mg tabletIndications :heart failure associated with type 2 diabetes mellitus Take 1 tablet (10 mg total) by mouth daily 90 tablet 3 07/03/20 24 Active Entresto 24-26 mg tabletIndications :Takotsubo cardiomyopathy Take 1 tablet by mouth every 12 (twelve) hours 180 tablet 3 07/03/20 24 Active furosemide (LASIX) 20 mg tabletIndications :Takotsubo cardiomyopathy TAKE 1 TABLET BY MOUTH EVERY DAY 90 tablet 2 10/21/19 25 Active metFORMIN (GLUCOPHAGE) 500 mg tabletIndications :Hyperlipidemia associated with type 2 diabetes mellitus (HCC) Take 1 tablet (500 mg total) by mouth 2 (two) times a day with meals 180 tablet 3 10/29/19 25 Active blood-glucose sensor (FreeStyle Oneyda 3 Sensor) deviceIndications :Uncontrolled type 2 diabetes mellitus with hyperglycemia (HCC),Diabetes mellitus with insulin therapy (HCC) Freestyle Oneyda 3 sensor use for 14 days to monitor blood sugar. 6 each 3 02/18/20 25 Active blood-glucose,rec eiver,cont (FreeStyle Oneyda 3 Dimock) miscIndications:U ncontrolled type 2 diabetes mellitus with hyperglycemia (HCC),Diabetes mellitus with insulin therapy (HCC) Use as directed 1 each 02/18/20 Active blood-glucose meter kitIndications:DM 2 Check daily and as needed and up to twice daily for DM2 1 kit 02/19/20 Active lancets 30 gauge miscIndications:D M2 Check daily and as needed and up to twice daily for DM2 100 each 3 02/19/20 Active blood glucose diagnostic (glucose blood) stripIndications: DM2 Check daily and as needed and up to twice daily for DM2 100 strip 3 02/19/20 Active atorvastatin (LIPITOR) 80 mg tablet Take 1 tablet (80 mg total) by mouth daily 90 tablet 4 02/19/20 25 2025 Active evolocumab (Repatha SureClick) 140 mg/mL pen injector Inject 1 mL (140 mg total) under the skin every 14 (fourteen) days 2 mL 06/09/20 25 Active dulaglutide (Trulicity) 0.75 mg/0.5 mL pen injector Inject 0.5 mL (0.75 mg total) under the skin once a week 2 mL 06/12/20 25 Active Eliquis 5 mg tabletIndications :Other (complete free text reason below),LV thrombus Take 1 tablet (5 mg total) by mouth 2 (two) times a day 180 tablet 3 07/03/20 24 2024 Discontinued(T herapy completed) omeprazole (PriLOSEC) 20 mg capsule Take 1 capsule (20 mg total) by mouth daily 30 capsule 02/17/20 25 2024 Discontinued(T herapy completed) dulaglutide (Trulicity) 0.75 mg/0.5 mL pen injector INJECT 0.5 ML (0.75 MG TOTAL) UNDER THE SKIN EVERY 7 DAYS 2 mL 04/06/20 25 2024 Discontinued Active Problems Problem Noted Date Diagnosed Date Hypertension associated with diabetes 06/09/2025 Coronary artery disease invo lving pilot station coronary artery of pilot station heart without angina pectoris 06/09/2025 Thyroid nodule 02/16/2025 Assessment & Plan (02/16/2025 2:08 PM CDT): Seen on CT when hospitalized at [facility] last April. Ultrasound thyroid ordered. 2.1cm nodule. Gastroesophageal reflux disease without esophagi tis 02/16/2025 Assessment & Plan (02/16/2025 2:09 PM CDT): New problem. Continues to have epigastric burning. Depends on diet. Start prilosec. Annual physical exam 02/16/2025 Assessment & Plan (02/16/2025 2:13 PM CDT): -Recommended: Healthy diet. Avoiding junk food/fast food. -30 minutes of exercise most days of the week. Increase to 45 minutes for weight loss. Health Maintenance reviewed - recommend dilated eye exam. -Influenza vaccine every year Recommend: - Topic Date Due DTaP/Tdap/Td Vaccine (1 - Tdap) Never done Pneumococcal vaccine <65 (1 of 2 - PCV) Never done -F/u in 1 year for Annual PE or sooner if needed Takotsubo cardiomyopathy 10/30/2024 Assessment & Plan (02/16/2025 2:11 PM CDT): History of - no new symptoms. Continues on furosemide 20mg daily, entresto, coreg Assessment & Plan (10/30/2024 10:[address] JUDGE): Refer back to Cardiology. I encouraged her to restart her medications. History of non-ST elevation myocardial infarctio n (NSTEMI) 10/30/2024 Assessment & Plan (10/30/2024 10:[address] JUDGE): Referred back to Cardiology. I encouraged her restart her medications Hyperlipidemia associated with type 2 diabetes padmini perez 10/30/2024 Assessment & Plan (02/16/2025 2:08 PM CDT): Has restarted statin. Continue rosuvastatin. Recheck lipid panel today. Assessment & Plan (10/30/2024 10:[address] JUDGE): History diabetes and very high cholesterol found last June. She is not currently taking her cholesterol medication. I recommended that she restart her statin medication. Will recheck a lipid panel today. Follow-up in 3 months Diabetes mellitus 10/29/2024 Overview (10/29/2024): Metformin - instructed to check her BG 4 per day. NST starting at 32 weeks. Pt is scheduled Assessment & Plan (02/16/2025 2:07 PM CDT): She has been taking medication, sometimes misses days. Recheck hga1c today. Has endocrinology appointment end of March. Reminded patient today Assessment & Plan (10/30/2024 10:[address] JUDGE): This is a chronic condition which is worse Is at goal for her age and health condition at less than [7,8] % Personally reviewed most recent A1c - No results found for: HGBA1C Medication- restart metformin Monitor blood sugar 1 times a day. Encouraged annual eye exam. 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 She has gone off of the Entresto, Lasix, ran out of Jardiance, has not been taking them metformin although she does have that available. She stopped taking the carvedilol. She states that she does not always believe in medications and believes in more natural ways to control her diabetes. She states that does not mean that she will not take her medications but she thinks that there are better ways. I went through each of her medications and explained what they do and why they are needed post AZ and for control of her diabetes. We are going to get updated labs today and then have her return in 3 months for recheck. Resolved Problems Problem Noted Date Diagnosed Date Resolved Date Ventricular mural thrombus following AZ 10/30/2024 06/09/2025 Assessment & Plan (02/16/2025 2:11 PM CDT): Missed cardiology appointment, but has rescheduled and states she is committed to keeping appointment. Cites social problems with keeping appointments. Continues on eliquis Assessment & Plan (10/30/2024 10:[address] JUDGE): I told her usually patients are on anticoagulants for 3-6 months for a blood clot. However I encouraged her to check with Cardiology if she should still be taking the Eliquis Late care 10/29/2024 Polyhydramnios 12/20/2021 10/29/2024 Encounters Date Type Department Care Team Description 06/09/2025 8:00 AM CDT Office Visit [facility] Cardiology [address] [place] [phone] Mario Miller MD Hyperlipidemia associated with type 2 diabetes mellitus (HCC) (Primary Dx); Takotsubo cardiomyopathy; Hypertension associated with diabetes (HCC); Coronary artery disease involving pilot station coronary artery of pilot station heart without angina pectoris 06/09/2025 Telephone [facility] Primary [facility] at [address] [phone] Sneha Schwarz NP Medical Question/Miscellaneou s 06/01/2025 9:15 AM CDT Ancillary Procedure [facility] [address] [place] [address] [place] [phone] Takotsubo cardiomyopathy 06/01/2025 Results Follow-Up [facility] [address] [place] [address] [place] [phone] Masha Castro NP Transthoracic Echo (TTE) Limited/Followup 06/01/2025 Telephone [facility] Care at [address] [phone] Sneha Schwarz NP Medical Question/Miscellaneou s 05/26/2025 Telephone [facility] Cardiology [address] [place] [address] Mario Miller MD from Last 3 Months Surgical History Surgery Date Site/Laterality Comments CYST REMOVAL SECTION INDUCED Medical History Medical History Date Comments Hypertension CHF (congestive heart failure) (HCC) Heart attack (HCC) 05/2024 Diabetes mellitus (HCC) Family History Medical History Relation Name Comments Heart attack Father Diabetes Mother Hypertension Sister Relation Name Status Comments Father Mother Sister Social History Tobacco Use Types Packs/Day Years Used Date Smoking Tobacco: Never PHQ-2 Answer Date Recorded PHQ-2 Total Score (If total score is 3 or more points, staff should administer the PHQ-9) 0 02/25/2025 Comments Unknown Sex and Gender Information Value Date Recorded Sex Assigned at Not on file Legal Sex Female 4:04 PM CDT Gender Identity Not on file Sexual Orientation Not on file Obstetrics History Last Filed Vital Signs Vital Sign Reading Time Taken Comments Blood Pressure 138/82 06/09/2025 7:49 AM CDT Pulse 88 06/09/2025 7:49 AM CDT Temperature 36.8 C (98.2 F) 02/25/2025 12:53 PM CDT Respiratory Rate 18 06/09/2025 7:49 AM CDT Oxygen Saturation 97% 06/09/2025 7:49 AM CDT Inhaled Oxygen Concentration - - Weight 100.7 kg (222 lb) 06/09/2025 7:49 AM CDT Height 160 cm (5' 3) 06/09/2025 7:49 AM CDT Body Mass Index 39.33 06/09/2025 7:49 AM CDT Plan of Treatment Health Maintenance Due Date Last Done Comments Breast Cancer Screening-Mammogram 1975 Cervical Cancer Screening 1975 Colon Cancer Screening-Colonoscopy 1975 Dilated Eye Exam 1975 DTaP/Tdap/Td Vaccine (1 - Tdap) 1987 Pneumococcal vaccine <65 (1 of 2 - PCV) 1995 Influenza Vaccine (#1) 2025 Hemoglobin A1C 08/19/2025 02/16/2025, 10/29/2024 Albumin Creatinine Ratio, Urine 10/29/2025 Foot Exam 02/16/2026 02/16/2025 Regular Well Visit/Exam 18-64 02/16/2026 02/16/2025 eGFR 02/16/2026 02/16/2025, 10/29/2024 Depression Screening 02/25/2026 02/25/2025, 02/16/2025, 10/29/2024 Lipid Panel 06/09/2026 06/09/2025, 05/0 02/2025, 10/29/2024, Additional history exists Hepatitis B Screening Completed 10/29/2024 Hepatitis C Screening Completed 10/29/2024 Procedures Procedure Name Priority Date/Time Associated Diagnosis Comments POCT LIPID PANEL Routine 06/09/2025 7:59 AM CDT Hyperlipidemia associated with type 2 diabetes mellitus (HCC) TRANSTHORACIC ECHO (TTE) LIMITED/FOLLOW UP W LTD DOPPLER/CF W CONTRAST Routine 06/01/2025 9:50 AM CDT Takotsubo cardiomyopathy EGFR Routine 02/16/2025 2:08 PM CDT Hyperlipidemia associated with type 2 diabetes mellitus (HCC) HEMOGLOBIN A1C Routine 02/16/2025 2:08 PM CDT Type 2 diabetes mellitus without complication, without long-term current use of insulin (HCC) HEPATITIS C ANTIBODY Routine 10/29/2024 11:[address]GE Need for hepatitis C screening test Encounter for hepatitis C screening test for low risk patient ALBUMIN CREATININE RATIO, URINE Routine 10/29/2024 11:[address] JUDGE Type 2 diabetes mellitus without complication, without long-term current use of insulin (HCC) from Last 3 Months or Most Recently Relevant to Health Maintenance Results * (ABNORMAL) POCT lipid panel (06/09/2025 7:59 AM CDT) Cholesterol, POC 304 <200 MG/DL HDL, POC 57 >=40 mg/dL Triglycerides, POC 154(A) <=149 mg/dL LDL Cholesterol POC 216(A) <=129 mg/dL Chol/HDL Ratio, POC 3.8 NONE Non-HDL Cholesterol, POC 247 NONE mg/dL Cholesterol Total, POC 304(A) 30 - 199 mg/dL Capillary blood 06/09/2025 7 :59 AM CDT us Mario Miller MD POINT OF CARE TEST ORDERA BLES Final Result * TRANSTHORACIC ECHO (TTE) LIMITED/FOLLOW UP W LTD DOPPLER/CF W CONTRAST (06/01/2025 9:50 AM CDT) EF Mod BP 55 % CONS SCIMAGE Anatomical Region Laterality Modality Ultrasound 06/01/2025 9:20 AM CDT Narrative 06/01/2025 11:59 AM CDT [facility] [address] [facility] [address], [place] [address] [address] [facility] [facility] [address], [place] [address] P:[phone] P:[phone] Echocardiographic Report Patient Name: ALTAF LEA M : 1975 Study Date: 06/01/2025 9:20:20 AM Gender: F 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 With Strain Analysis. INDICATIONS: I51.81 Takotsubo syndrome. MEASUREMENTS: 2D/MM Value Range Doppler Value Range EF Mod BP 55 % [ 54 - 74 ] MV E Peak Marek 0.64 m/s [ 0.60 - 1.30 ] LV GLS -15.49 % MV A Peak Marek 0.95 m/s [ 1.00 - 1.20 ] LVIDd 2D 4.57 cm [ 3.80 - 5.20 ] MV Decel Time 198 msec [ 104 - 258 ] LVIDs 2D 3.31 cm [ 2.20 - 3.50 ] Lateral E` 0.08 m/s [ 0.10 - 0.15 ] LVPWd 2D 0.99 cm [ 0.60 - 0.90 ] Septal E` 0.05 m/s [ 0.08 - 0.15 ] IVSd 2D 0.99 cm [ 0.60 - 0.90 ] E` 0.07 m/s E/E` 10 2D/MM Value Range Doppler Value Range - FINDINGS: Interpretation Site: Exam was interpreted at [facility]. Left Ventricle: Normal left ventricular systolic function. No focal wall motion abnormalities. Normal left ventricular size. Definity contrast agent used to visually enhance endocardial wall motion and contractility. Lot Number: [id number]. Normal left ventricular wall thickness. Impaired diastolic relaxation Grade I. Ejection fraction is measured at 55 %. Global Longitudinal Strain is -15 %. GLS is abnormal. Right Ventricle: Normal right ventricular size. Normal right ventricular systolic function. Left Atrium: The left atrium is normal in size. Right Atrium: The right atrium is normal in size. Atrial Septum: The atrial septum is not well visualized. Mitral Valve: Normal appearance of the mitral valve. Aortic Valve: Aortic valve not well visualized. Tricuspid Valve: Normal appearance of the tricuspid valve. Pulmonic Valve: Pulmonic valve not well visualized. Pericardium: Normal pericardium with no significant pericardial effusion. Aorta: Sinus of Valsalva is normal. IVC: Normal size and normal respiratory collapse consistent with normal right atrial pressure (<5 mmHg). Pulmonary Artery: Pulmonary artery not well visualized. CONCLUSIONS: Normal left ventricular systolic function. No focal wall motion abnormalities. Normal left ventricular size. Definity contrast agent used to visually enhance endocardial wall motion and contractility. Lot Number: [id number]. Normal left ventricular wall thickness. Impaired diastolic relaxation Grade I. Ejection fraction is measured at 55 %. Global Longitudinal Strain is -15 %. GLS is abnormal. Electronically Signed By: Dr. Sarah Sinclair [facility] 06/01/2025 11:58:54 AM CDT Procedure Note Sarah Sinclair MD - 06/01/2025 [facility] [address] [facility] [address], [place] [address] [address] [facility], [place] [address] P:[phone] P:[phone] Echocardiographic Report Patient Name: ALTAF LEA M : 1975 Study Date: 06/01/2025 9:20:20 AM Gender: F Termite Exterminator: Airam Morejon (Jonnathan)([place]), [facility] Location: [facility] Provider: MASHA CASTRO Height(Cm): 160 BSA: 2.11 Weight(Kg): 99.8 Heart Rate: 133 BP: 120 / 82 Quality: Good Order Provider: MASHA CASTRO PROCEDURES: Echocardiographic Report: Limited Transthoracic Echocardiogram with 2D, Doppler, and DefinityContrast. With Strain Analysis. INDICATIONS: I51.81 Takotsubo syndrome. MEASUREMENTS: 2D/MM Value Range Doppler ValueRange EF Mod BP 55 % [ 54 - 74 ] MV E Peak Marek 0.64 m/s [0.60 - 1.30 ] LV GLS -15.49 % MV A Peak Marek 0.95 m/s [1.00 - 1.20 ] LVIDd 2D 4.57 cm [ 3.80 - 5.20 ] MV Decel Time 198 msec [104 - 258 ] LVIDs 2D 3.31 cm [ 2.20 - 3.50 ] Lateral E` 0.08 m/s [0.10 - 0.15 ] LVPWd 2D 0.99 cm [ 0.60 - 0.90 ] Septal E` 0.05 m/s [0.08 - 0.15 ] IVSd 2D 0.99 cm [ 0.60 - 0.90 ] E` 0.07 m/s E/E` 10 2D/MM Value Range Doppler ValueRange - FINDINGS: Interpretation Site: Exam was interpreted at [facility]. Left Ventricle: Normal left ventricular systolic function. No focal wall motionabnormalities. Normal left ventricular size. Definity contrast agent used to visually enhanceendocardial wall motion and contractility. Lot Number: [id number]. Normal left ventricular wallthickness. Impaired diastolic relaxation Grade I. Ejection fraction is measured at 55%. Global Longitudinal Strain is -15 %. GLS is abnormal. Right Ventricle: Normal right ventricular size. Normal right ventricular systolicfunction. Left Atrium: The left atrium is normal in size. Right Atrium: The right atrium is normal in size. Atrial Septum: The atrial septum is not well visualized. Mitral Valve: Normal appearance of the mitral valve. Aortic Valve: Aortic valve not well visualized. Tricuspid Valve: Normal appearance of the tricuspid valve. Pulmonic Valve: Pulmonic valve not well visualized. Pericardium: Normal pericardium with no significant pericardial effusion. Aorta: Sinus of Valsalva is normal. IVC: Normal size and normal respiratory collapse consistent with normal rightatrial pressure (<5 mmHg). Pulmonary Artery: Pulmonary artery not well visualized. CONCLUSIONS: Normal left ventricular systolic function. No focal wall motionabnormalities. Normal left ventricular size. Definity contrast agent used to visually enhanceendocardial wall motion and contractility. Lot Number: [id number]. Normal left ventricular wallthickness. Impaired diastolic relaxation Grade I. Ejection fraction is measured at 55%. Global Longitudinal Strain is -15 %. GLS is abnormal. Electronically Signed By: Dr. Sarah Sinclair [facility] 06/01/2025 11:58:54 AM CDT Masha Castro NP CV ECHO PROCEDURES Final Result * eGFR (02/16/2025 2:08 PM CDT) eGFR 69 >=60 mL/min/1. 73 m2 Comment: Interpretive Data Reference Interval Normal >/= 90 mL/min/1.73m2 Mildly decreased* 60 - 89 mL/min/1.73m2 Mildly to moderately decreased 45 - 59 mL/min/1.73m2 Moderately to severely decreased 30 - 44 mL/min/1.73m2 Severely decreased 15 - 29 mL/min/1.73m2 Kidney Failure < 15 mL/min/1.73m2 *Relative to young adult level Estimated glomerular filtration rate is determined by the 2020 CKD-EPI equation recommended by the National Kidney Foundation (A Unifying Approach to GFR Estimation: Recommendations of the NKF-ASK Task Force on Reassessing the Inclusion of Race in Diagnosing Kidney Disease, JASN 2020). The CKD-EPI equation should not be used for patients with unstable renal function and has not been validated in children and those over 70. Current interpretive data was last reviewed 2021. Blood 02/16/2025 2:08 PM CDT 02/16/2025 9:28 PM CDT us Sneha Schwarz NP LAB BLOOD ORDERABLES Final Re sult JACKELIN HUMPHREYS [id number] Department [place] [address] * (ABNORMAL) Hemoglobin A1c (02/16/2025 2:08 PM CDT) Hgb A1C 9.6(H) 4.0 - 5.6 % Comment:Corrected result luci led to Fran Santamaria on 02/17/2025 15:53:10 CDT by Yadira Brown. Estimated Average Glucose 229 mg/dL [facility] HUMPHREYS Comment: The ADA recommends reporting an estimated Average Glucose (eAG) with all Hemoglobin A1c results using the equation derived from a study of 507 normal and diabetic adults. Minority populations were underrepresented and children were not included. (Diabetes Care 31:6666-2719, 2008). The eAG is not equivalent to a fasting glucose. Blood 02/16/2025 2:08 PM CDT 02/16/2025 9:09 PM CDT Sneha Schwarz NP LAB BLOOD ORDERABLES Edited R esult - Final Performing Organization Address [facility] Co de Phone Number JACKELIN HUMPHREYS [id number] [facility] [place] [address] * Hepatitis C antibody Blood (10/29/2024 11:[address]GE) Pathologist [facility] Hep C Ab Nonreactive Nonreactive Comment: Interpretive Data Nonreactive: Antibodies to HCV not detected. Does NOT exclude the possibility of recent exposure to HCV. Equivocal: Equivocal for HCV antibodies. Supplemental molecular testing will be automatically performed to determine infection status in accordance with current CDC screening recommendations. Reactive: Positive for HCV antibodies. This may represent current or past HCV infection. Supplemental molecular testing will be automatically performed to determine current infection status in accordance with current CDC screening recommendations. Interpretive data was last revised on 2019. Blood 10/29/2024 11:[address]GE 10/29/2024 4:[address] JUDGE Sneha Schwarz NP LAB MICROBIOLOGY - GENERAL OR DERABLES Final Result Performing Organization Address [facility] Co de Phone Number [facility] [phone] [address] [facility] [place] [address] * Albumin Creatinine Ratio, Urine (10/29/2024 11:[address]GE) [facility] Albumin Ur <12.0 mg/L Comment: Interpretive Data No reference range established. Current interpretive data was last revised 2019. Creatinine Ur 124.4 mg/dL [facility] Comment: Interpretive Data No reference range established. Current interpretive data was last revised 2019. Albumin Creatinine Ratio, Ur <10 1 - 29 mg/g [facility] Urine 10/29/2024 11:[address]GE 10/29/2024 4:[address] JUDGE us Sneha Schwarz NP LAB URINE ORDERABLES Final Re sult JACKELIN [id number] Department of [place] [address] from Last 3 Months or Most Recently Relevant to Health Maintenance Insurance [employer] [facility] Care Teams Collection Clerk Relationship Specialty Start Date End Date Sneha Schwarz NP [address] [facility] [address] [place] [address] PCP - General Family Medicine 10/29/24
--- OUTSIDE RECORDS SUMMARY | 2025-06-12 15:32 | XMS_ITS | Encounter Summary ---
Author Organization [facility] Healthcare Address [address] [place] [address] Care Team Providers Care Balling Machine Operator Name Role Phone Sneha Schwarz NP Primary Care Provider [phone] Reason for Visit * Reason Onset Date Comments Medical Question/Miscellaneous 06/01/2025 Encounter Details Date Type Department Care Team (Late st Contact Info) Description 06/01/2025 Telephone [facility] Medical Group Primary Care at [address] [address] Sneha Schwarz NP [address] [place] [address] [address] [place] [address] Medical Question/Miscellaneous Social History Tobacco Use Types Packs/Day Years [...] on file Sexual Orientation Not on file documented as of this encounter Miscellaneous Notes * Telephone Encounter - Peg Marcial - 06/01/2025 3:13 PM CDT Medical Question/Miscellaneous Caller???s Concern: Dr Miller ordered a myocardial strain imaging . It has not been scheduled yet she believes it has to be authorized with insurance She had her echocardiogram today She just wanted to keep Cheryl updated Thank you Does message need to be routed? Yes-Action Needed documented in this encounter Plan of Treatment Not on file documented as of this encounter Visit Diagnoses Not on filedocumented in this encounter Care Teams Balling Machine Operator Relationship Specialty Start Date End Date Sneha Schwarz NP [address] [facility] [address] [place] [address] PCP - General Family Medicine 10/29/24 documented as of this encounter
--- OUTSIDE RECORDS SUMMARY | 2025-06-12 15:32 | XMS_ITS | Encounter Summary ---
Author Organization [facility] Healthcare Address [address] [place] [address] Care Team Providers Care Nurse'S Aides Teacher Name Role Phone Sneha Schwarz NP Primary Care Provider Encounter Details Date Type Department Care Team (Late st Contact Info) Description 06/01/2025 Results Follow-Up [facility] Medical Group Cardiology [address] [facility] [address] [place] [address] Masha Varela NP [address] [place] [address] Transthoracic Echo (TTE) Limited/Followup Social History Tobacco Use Types Packs/Day Years [...] on file documented as of this encounter Plan of Treatment Not on file documented as of this encounter Visit Diagnoses Not on filedocumented in this encounter Care Teams Nurse'S Aides Teacher Relationship Specialty Start Date End Date Sneha Schwarz NP [address] [facility] [address] [place] [address] PCP - General Family Medicine 10/29/24 documented as of this encounter
--- NOTE | 2025-06-12 15:43 | ED_ITS ---
HPI - Chest Pain General Chief Complaint: Chest Pain Stated Complaint: chest pain Time Seen by Provider: 06/12/25 15:40 Focused HPI: Patient is a 50-year-old female, with PMH of IDDM, HTN, who presents ED with report of chest pain acid reflux. Patient reports she began having nausea and vomiting yesterday. She has since had sensation of acid reflux since then and reports having pain throughout her chest today. Has not taken anything for acid reflux. Reports she has history of broken heart syndrome and was seen in the ED here last year for this. Sees Dr. Miller. Last saw him 2 days ago for a routine appointment and states her cholesterol was elevated at that time. She does take rosuvastatin. Patient also reports currently having shortness of breath. Denies fevers, cough. GENERAL: Well-appearing, obese with BMI of 37.1, and in no acute distress. HEAD: Normocephalic, atraumatic. CHEST: Clear to auscultation. ?No respiratory distress. No focal lung sounds. HEART: Tachycardic with regular rhythm.? NEURO: ?Alert and oriented x3. Patient screened in triage and initial orders placed.? ?Additional care and disposition to be based upon?diagnostic testing and treatment. Source: patient Mode of arrival: ambulatory Limitations: no limitations Related Data Home Medications ?Medication ?Instructions ?Recorded ?Confirmed ?Last Taken ?Type dulaglutide 0.75 mg/0.5 mL 0.75 mg subcut WEEKLY 06/1206/12/25 06/09/25 08:00 History subcutaneous pen injector 0.75 mg (Trulicity) Allergies Allergy/AdvReac Type Severity Reaction Status Date / Time No Known Allergies Allergy Verified 06/13/25 00:15 [facility] Past Medical History Medical History Granulomatous lung disease Hepatic steatosis Noted on imaging Coronary artery disease Nonobstructive coronary artery disease with less than 50% occlusion not requiring stenting on catheterization 04/2024 Takotsubo cardiomyopathy (05/05/24) Complicated by mural thrombus Sliding hiatal hernia Essential hypertension GERD (gastroesophageal reflux disease) Diabetes mellitus juardiance HLD (hyperlipidemia) Surgical History Surgical History History of cardiac catheterization (05/04/24) History of 2 sections History of tubal ligation Family History Family History Mother , age 56 Hypertension Diabetes mellitus End-stage renal disease on hemodialysis Sibling Diabetes mellitus End-stage renal disease on hemodialysis Son Pulmonary embolism, Onset Age: 26 Social History Social History Social History: The patient reports that she and her have been together for 14 years in a been for 1 year. She had a total of 6 children her oldest son of what sounds like a pulmonary embolism at age 26. She currently lives with her and her children ranging in age from 14 down to 3 years old. 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 She denies any history of tobacco use or alcohol use. She occasionally smokes marijuana. Code status: Full code Surrogate decision maker: Smoking status: Never smoker Alcohol intake: never Substance use: current Substance use type: marijuana Last use: 05/03/24 Do You Feel Safe in your Home?: Yes Lack of Transportation: No Lack of Food: Never True Current Housing: I Have Housing Concerned About Future Housing: No Difficulty Paying Gas/Electric Bills: No Difficulty Paying for Meds: No Currently Unemployed: No Education: Grade School Difficulty w/ Childcare or Family Care: No Spiritual care concerns: No Course Vital Signs Vital signs: Vital Signs Temperature 97.3 F L 06/12/25 15:39 Pulse Rate 120 H 06/12/25 15:39 Respiratory Rate 20 06/12/25 15:39 Blood Pressure 153/84 H 06/12/25 15:39 Pulse Oximetry 92 06/12/25 15:39 Oxygen Delivery Room Air 06/12/25 15:39 Temperature 97.0 F L 06/14/25 14:12 Pulse Rate 80 06/14/25 14:12 Respiratory Rate 20 06/14/25 14:12 Blood Pressure 130/85 06/14/25 14:12 Pulse Oximetry 99 06/14/25 14:12 Oxygen Delivery Room Air 06/14/25 08:00 Oxygen Flow Rate 10 06/13/25 15:55 MDM - Chest Pain MDM Narrative Medical decision making narrative: MSE by JAMES in triage Lab Data 06/14/25 05:23 06/14/25 05:23 Labs: Lab Results 06/12/25 06/12/25 06/12/25 Range/Units 18:48 18:50 21:53 WBC 19.5 H (4.5-10.0) K/mm3 RBC 4.74 (4.2-5.4) M/mm3 Hgb 14.4 (12.0-15.0) g/dL Hct 43.1 (37.0-47.0) % MCV 90.9 (80-100) fl MCH 30.4 (26-34) pg MCHC 33.4 (32-36) g/dl RDW 12.2 (11.5-14.5) % Plt Count 431 H D (150-375) k/mm3 MPV 9.5 (7.4-10.4) fl Immature Gran % (Auto) 0.4 (0-0.5) % Neut % (Auto) 81.9 H (45.5-73.1) % Lymph % (Auto) 9.5 L (18.3-44.2) % Burke % (Auto) 7.9 (2.6-8.5) % Eos % (Auto) 0.0 (0-4.4) % Baso % (Auto) 0.3 (0.2-1.2) % Lymph # (Auto) 1.86 (0.9-3.2) K/mm3 Burke # (Auto) 1.5 H (0.1-0.6) K/mm3 Eos # (Auto) 0.0 (0-0.3) K/mm3 Baso # (Auto) 0.1 (0.0-0.1) K/mm3 Abs Immat Gran (auto) 0.08 H (0.00-0.031) K/mm3 Absolute Neuts (auto) 16.0 H (1.3-6.7) K/mm3 Absolute Nucleated RBC 0.000 (0.0-0.012) K/mm3 Nucleated RBC % 0.0 (0.0-0.2) % PT 14.7 (11.1-14.7) Seconds INR 1.1 APTT 29.3 (22.3-36.8) Seconds Sodium 134 L (137-145) mmol/L Potassium 3.8 (3.4-5.0) mmol/L Chloride 86 L (98-107) mmol/L Carbon Dioxide 32 H (22-30) mmol/L Anion Gap 16 H (4-12) mmol/L BUN 45 H D (7-17) mg/dL Creatinine 1.68 H (0.7-1.0) mg/dL Estim Creat Clear Calc 40 ml/min Estimated GFR 32 L (59 - ) Glucose 171 H (65-110) mg/dL Calcium 10.0 (8.4-10.2) mg/dL Total Bilirubin 0.8 (0.2-1.3) mg/dL AST 31 (14-36) U/L ALT 32 (6-35) U/L Alkaline Phosphatase 127 H (38-126) U/L Troponin I < 0.012 < 0.012 (0.000-0.034) ng/mL NT-Pro-B Natriuret Pep 479 H (19.9-100) pg/mL Total Protein 10.2 H (6.3-8.2) g/dL Albumin 4.5 (3.5-5.1) g/dL Lipase 42 (23-300) U/L Beta-Hydroxybutyrate/Acetoacetate 2.99 H (0.02-0.27) mmol/L Procalcitonin 0.3 ng/mL Discharge Plan Discharge Clinical Impression: Chest pain, Esophagitis, KVNG (acute kidney injury) Patient Disposition: Still a Patient Condition: Stable
--- NOTE | 2025-06-12 18:43 | ED.CHESTPAIN ---
HPI - Chest Pain General Chief Complaint: Chest Pain Stated Complaint: chest pain Time Seen by Provider: 06/12/25 15:40 Source: patient Mode of arrival: ambulatory Limitations: no limitations History of Present Illness HPI narrative: PATIENT IS 50 YEARS FEMALE CAME TO THE ED BY PRIVATE CAR FROM HOME COMPLAINING OF RETROSTERNAL BURNING SENSATION STARTED YESTERDAY, WORSE LAYING DOWN, DECREASED WITH ACTIVITIES, ASSOCIATED WITH NAUSEA. RADIATING TO EPIGASTRIC AREA HISTORY OF DIABETES, HYPERLIPIDEMIA, GERD, BROKEN HEART SYNDROME, CORONARY STENT, CURRENTLY ON BABY ASPIRIN ONCE A DAY. PATIENT DOES NOT SMOKE OR DRINK, USES MARIJUANA OCCASIONALLY, HISTORY OF GERD SHE DENIES SHORTNESS OF BREATH OR RADIATION OF PAIN TO THE BACK. Related Data Allergies Allergy/AdvReac Type Severity Reaction Status Date / Time No Known Allergies Allergy Verified 05/09/24 13:38 Review of Systems Review of Systems: All systems reviewed & are unremarkable except as noted in HPI and below PMFSH Past Medical History Medical History Essential hypertension GERD (gastroesophageal reflux disease) Diabetes mellitus HLD (hyperlipidemia) Surgical History Surgical History History of Encounter for female sterilization procedure Family History Family History Mother Hypertension Diabetes mellitus Social History Social History Smoking status: Never smoker Alcohol intake: never Substance use: current Substance use type: marijuana Last use: 05/03/24 Do You Feel Safe in your Home?: Yes Lack of Transportation: No Lack of Food: Never True Current Housing: I Have Housing Concerned About Future Housing: No Difficulty Paying Gas/Electric Bills: No Difficulty Paying for Meds: No Currently Unemployed: No Education: Grade School Difficulty w/ Childcare or Family Care: No Spiritual care concerns: No Exam Narrative: GENERAL APPEARANCE: WELL-DEVELOPED, WELL-NOURISHED, IN PAIN SKIN: NORMAL COLOR HEAD: NORMOCEPHALIC, NONTRAUMATIC EYES: CLEAR CONJUNCTIVA ENT: OROPHARYNX NORMAL, EARS NORMAL, NOSE NORMAL NECK: SUPPLE, NONTENDER CHEST AND RESPIRATORY: AIRWAY PATENT, NO RESPIRATORY DISTRESS, NO ACCESSORY MUSCLE USE HEART: REGULAR RATE/RHYTHM ABDOMEN: SOFT, EPIGASTRIC TENDERNESS, NO ORGANOMEGALY, QUIET BOWEL SOUNDS MUSCULOSKELETAL: NORMAL RANGE OF MOTION, NONTENDER BACK NEUROLOGIC: ALERT AND ORIENTED ?3, CARPENTERS HELPER IS NORMAL TESTED, NO GROSS MOTOR DEFICIT Course Vital Signs Vital signs: Vital Signs Temperature 36.3 C L 06/12/25 15:39 Pulse Rate 120 H 06/12/25 15:39 Respiratory Rate 20 06/12/25 15:39 Blood Pressure 153/84 H 06/12/25 15:39 Pulse Oximetry 92 06/12/25 15:39 Oxygen Delivery Room Air 06/12/25 15:39 Temperature 36.3 C L 06/12/25 15:39 Pulse Rate 91 06/12/25 21:01 Respiratory Rate 19 06/12/25 21:01 Blood Pressure 157/92 H 06/12/25 21:01 Pulse Oximetry 99 06/12/25 21:01 Oxygen Delivery Room Air 06/12/25 19:00 MDM - Chest Pain MDM Narrative Medical decision making narrative: PATIENT CAME WITH RETROSTERNAL BURNING SENSATION STARTED YESTERDAY, INTERMITTENT VITAL SIGN SHOWING BLOOD PRESSURE 153/84, HEART RATE 120 OTHERWISE WITHIN NORMAL LIMIT PHYSICAL EXAMINATION SHOWING A PATIENT IN PAIN, RESTLESS WITH EPIGASTRIC TENDERNESS DIFFERENTIAL DIAGNOSIS INCLUDE CORONARY SYNDROME, PERICARDITIS, PANCREATITIS, ESOPHAGITIS, GASTRITIS, GERD, COLITIS, DIVERTICULITIS BLOOD WORKUP TODAY INCLUDES CBC, CMP, TROPONIN, LIPASE SHOWED WBC 19.5 SODIUM 134, BUN 45, CREATININE 1.6 COMPARED TO 0.92 2023, PROBNP 479 OTHERWISE INSIGNIFICANT CHEST X-RAY SHOWED NO ACUTE ABNORMALITY EKG ON ARRIVAL SHOWED SINUS TACHYCARDIA AT 110 BEATS PER MINUTE NONSPECIFIC ST T-WAVE, ABNORMAL EKG, COMPARED TO EKG ON 05/04/2024 HEART RATE HAS INCREASED. CT CHEST ABDOMEN AND PELVIS WITH IV CONTRAST SHOWED NO ACUTE CARDIOPULMONARY DISEASE, MILD WALL THICKENING THE DISTAL ESOPHAGUS WHICH COULD BE SEEN WITH ESOPHAGITIS, NO ACUTE INTRA-ABDOMINAL PROCESS DIAGNOSIS RETROSTERNAL CHEST PAIN, ESOPHAGITIS, KVNG, LEUKOCYTOSIS Differential Diagnosis Differential diagnosis: Likely other ( ABOVE) Lab Data 06/12/25 18:48 06/12/25 18:48 Labs: Lab Results 06/12/25 Range/Units 18:48 WBC 19.5 H (4.5-10.0) K/mm3 RBC 4.74 (4.2-5.4) M/mm3 Hgb 14.4 (12.0-15.0) g/dL Hct 43.1 (37.0-47.0) % MCV 90.9 (80-100) fl MCH 30.4 (26-34) pg MCHC 33.4 (32-36) g/dl RDW 12.2 (11.5-14.5) % Plt Count 431 H D (150-375) k/mm3 MPV 9.5 (7.4-10.4) fl Immature Gran % (Auto) 0.4 (0-0.5) % Neut % (Auto) 81.9 H (45.5-73.1) % Lymph % (Auto) 9.5 L (18.3-44.2) % [place] % (Auto) 7.9 (2.6-8.5) % Eos % (Auto) 0.0 (0-4.4) % Baso % (Auto) 0.3 (0.2-1.2) % Lymph # (Auto) 1.86 (0.9-3.2) K/mm3 [place] # (Auto) 1.5 H (0.1-0.6) K/mm3 Eos # (Auto) 0.0 (0-0.3) K/mm3 Baso # (Auto) 0.1 (0.0-0.1) K/mm3 Abs Immat Gran (auto) 0.08 H (0.00-0.031) K/mm3 Absolute Neuts (auto) 16.0 H (1.3-6.7) K/mm3 Absolute Nucleated RBC 0.000 (0.0-0.012) K/mm3 Nucleated RBC % 0.0 (0.0-0.2) % PT 14.7 (11.1-14.7) Seconds INR 1.1 APTT 29.3 (22.3-36.8) Seconds Sodium 134 L (137-145) mmol/L Potassium 3.8 (3.4-5.0) mmol/L Chloride 86 L (98-107) mmol/L Carbon Dioxide 32 H (22-30) mmol/L Anion Gap 16 H (4-12) mmol/L BUN 45 H D (7-17) mg/dL Creatinine 1.68 H (0.7-1.0) mg/dL Estim Creat Clear Calc 40 ml/min Estimated GFR 32 L (59 - ) Glucose 171 H (65-110) mg/dL Calcium 10.0 (8.4-10.2) mg/dL Total Bilirubin 0.8 (0.2-1.3) mg/dL AST 31 (14-36) U/L ALT 32 (6-35) U/L Alkaline Phosphatase 127 H (38-126) U/L Troponin I < 0.012 (0.000-0.034) ng/mL NT-Pro-B Natriuret Pep 479 H (19.9-100) pg/mL Total Protein 10.2 H (6.3-8.2) g/dL Albumin 4.5 (3.5-5.1) g/dL Lipase 42 (23-300) U/L Discharge Plan Discharge Clinical Impression: Chest pain, Esophagitis, KVNG (acute kidney injury) Patient Disposition: Still a Patient Condition: Stable Patient Language: Cymro Prescriptions: No Action Eliquis 5 mg Tablet 5 mg PO Q12HR Qty: 60 1RF carvedilol [Coreg] 6.25 mg Tablet 6.25 mg PO Q12HR Qty: 60 1RF aspirin [Children's Aspirin] 81 mg Tablet,Chewable 81 mg PO DAILY@0800 Qty: 30 1RF Jardiance 10 mg Tablet 10 mg PO DAILY Qty: 30 1RF furosemide 40 mg Tablet 40 mg PO DAILY Qty: 30 1RF insulin glargine 100 unit/mL (3 mL) insulin pen 10 unit subcut HS Qty: 15 1RF Entresto 24-26 mg Tablet 1 tablet PO Q12HR Qty: 60 1RF rosuvastatin 40 mg capsule, sprinkle 40 mg PO DAILY Qty: 30 1RF metformin 500 mg tablet 250 mg PO BIDWMEAL Qty: 60 1RF (DME) blood-glucose meter [OneTouch Verio Flex meter] [facility] Qty: 1 0RF Rx Instructions: May substitute to in-stock meter and/or covered by insurance. Use As Directed (DME) OneTouch Verio test strips Strip Qty: 1 0RF Rx Instructions: May substitute to in-stock and/or covered by insurance strips. Use As Directed (DME) lancets [OneTouch Delica Plus Lancet] [address] [facility] Qty: 1 0RF Rx Instructions: May substitute to in-stock and/or covered by insurance lancets. Use As Directed Follow-up/Referrals: PHYSICIAN,DIRECTOR OF SAFETY [Non-Staff, Internal Medicine]
--- OUTSIDE RECORDS SUMMARY | 2025-06-12 18:48 | XMS_ITS | Clinical Summary ---
Author Organization [facility] [address] Address [address] [place] [address] Care Team Providers Care Apartment Rental Agent Name Role Phone Sneha Schwarz NP Primary Care Provider [phone] Allergies No known active allergies Medications aspirin [...] 25 Active blood-glucose,rec eiver,cont (FreeStyle Oneyda 3 [place]) miscIndications:U ncontrolled type 2 diabetes mellitus with [...] diabetes 06/09/2025 Coronary artery disease invo lving jena coronary artery of jena heart without angina pectoris 06/09/2025 Thyroid nodule 02/16/2025 Assessment & Plan (02/16/2025 2:08 PM CDT): Seen on CT when hospitalized at [place] last April. Ultrasound thyroid ordered. 2.1cm nodule. [...] coreg Assessment & Plan (10/30/2024 10:55 AM BAND MANAGER): Refer back to Cardiology. I encouraged her to restart her medications. History of non-ST elevation myocardial infarctio n (NSTEMI) 10/30/2024 Assessment & Plan (10/30/2024 10:56 AM BAND MANAGER): Referred back to Cardiology. I encouraged her restart her medications Hyperlipidemia associated with type 2 diabetes padmini perez 10/30/2024 Assessment & Plan (02/16/2025 2:08 PM CDT): Has restarted statin. Continue rosuvastatin. Recheck lipid panel today. Assessment & Plan (10/30/2024 10:42 AM BAND MANAGER): History diabetes and very high cholesterol found [...] today Assessment & Plan (10/30/2024 10:54 AM BAND MANAGER): This is a chronic condition which is [...] 03/07/2022 Assessment & Plan (10/30/2024 10:41 AM BAND MANAGER): She states she forgot about her cardiology [...] do and why they are needed post CA and for control of her diabetes. We are going to get updated labs today and then have her return in 3 months for recheck. Resolved Problems Problem Noted Date Diagnosed Date Resolved Date Ventricular mural thrombus following CA 10/30/2024 06/09/2025 Assessment & Plan (02/16/2025 2:11 PM CDT): Missed cardiology appointment, but has rescheduled and states she is committed to keeping appointment. Cites social problems with keeping appointments. Continues on eliquis Assessment & Plan (10/30/2024 10:55 AM BAND MANAGER): I told her usually patients are on anticoagulants for 3-6 months for a blood clot. However I encouraged her to check with Cardiology if she should still be taking the Eliquis Late care 10/29/2024 Polyhydramnios 12/20/2021 10/29/2024 Encounters Date Type Department Care Team Description 06/09/2025 8:00 AM CDT Office Visit [facility] Card[facility] [address] [place] [phone] Mario Miller MD Hyperlipidemia associated with type 2 diabetes mellitus (HCC) (Primary Dx); Takotsubo cardiomyopathy; Hypertension associated with diabetes (HCC); Coronary artery disease involving jena coronary artery of jena heart without angina pectoris 06/09/2025 Telephone [facility] Medical Group Primary Care at [address] [address] Sneha Schwarz NP Medical Question/Miscellaneou s 06/01/2025 9:15 AM CDT Ancillary Procedure [facility] [address] [place] [address] [place] [phone] Takotsubo cardiomyopathy 06/01/2025 Results Follow-Up [facility] [address] [place] [address] [place] [phone] Masha Castro NP Transthoracic Echo (TTE) Limited/Followup 06/01/2025 Telephone [facility] Medical [facility] Primary Care at [address] [address] Sneha Schwarz NP Medical Question/Miscellaneou s 05/26/2025 Telephone [facility] Medical Group Cardiology [address] [place] [address] Mario Miller MD from Last [...] HEPATITIS C ANTIBODY Routine 10/29/2024 11:47 AM BAND MANAGER Need for hepatitis C screening test Encounter for hepatitis C screening test for low risk patient ALBUMIN CREATININE RATIO, URINE Routine 10/29/2024 11:47 AM BAND MANAGER Type 2 diabetes mellitus without complication, without [...] AM CDT Narrative 06/01/2025 11:59 AM CDT [facility] Medical Group Cardiology [address] [facility] [address] [address] [address] [facility] [address], [place] [address] P:[phone] P:[phone] Echocardiographic Report Patient Name: ALTAF LEA M : 1975 Study Date: 06/01/2025 9:20:20 AM Gender: F Wholesale Manager: Airam Burton)(MD), [facility] Location: [place] Ref Provider: MASHA CASTRO Height(Cm): 160 BSA: [...] FINDINGS: Interpretation Site: Exam was interpreted at [facility]. Left Ventricle: Normal left ventricular systolic function. [...] abnormal. Electronically Signed By: Dr. Sarah Sinclair [facility] 06/01/2025 11:58:54 AM CDT Procedure Note Sarah Sinclair MD - 06/01/2025 [facility] Medical Group Cardiology [address] [facility] [address], [place] [address] [address] [facility] [address], [place] [address] P:[phone] P:[phone] Echocardiographic Report Patient Name: ALTAF LEA M : 1975 Study Date: 06/01/2025 9:20:20 AM Gender: F Wholesale Manager: Airam Morejon (Jonnathan)(CT), [facility] Location: [facility] Provider: MASHA CASTRO Height(Cm): 160 BSA: 2.11 Weight(Kg): 99.8 Heart Rate: 133 BP: 120 / 82 Quality: Good Order Provider: AMSHA CASTRO PROCEDURES: Echocardiographic Report: Limited Transthoracic Echocardiogram [...] FINDINGS: Interpretation Site: Exam was interpreted at [facility]. Left Ventricle: Normal left ventricular systolic function. [...] abnormal. Electronically Signed By: Dr. Sarah Sinclair [facility] 06/01/2025 11:58:54 AM CDT Masha Castro NP [...] BLOOD ORDERABLES Final Re sult [address]ACKELIN [address] Department [place] [address] * (ABNORMAL) Hemoglobin A1c (02/16/2025 2:08 PM [...] and children were not included. (Diabetes Care [id number], 2008). The eAG is not equivalent to a fasting glucose. Blood 02/16/2025 2:08 PM CDT 02/16/2025 9:09 PM CDT Sneha Schwarz NP LAB BLOOD ORDERABLES Edited R esult - Final Performing Organization Address [facility] Co de Phone Number JACKELIN [address] [facility] [place] [address] * Hepatitis C antibody Blood (10/29/2024 11:47 AM BAND MANAGER) Pathologist [facility] Hep C Ab Nonreactive Nonreactive Comment: Interpretive [...] on 2019. Blood 10/29/2024 11:4 7 AM BAND MANAGER 10/29/2024 4:14 PM BAND MANAGER Sneha Schwarz NP LAB MICROBIOLOGY - GENERAL OR DERABLES Final Result Performing Organization Address [facility] Co de Phone Number [facility] [address] [facility] [place] [address] * Albumin Creatinine Ratio, Urine (10/29/2024 11:47 AM BAND MANAGER) [facility] Albumin Ur <12.0 mg/L Comment: Interpretive Data No reference range established. Current interpretive data was last revised 2019. Creatinine Ur 124.4 mg/dL [facility] Comment: Interpretive Data No reference range established. Current interpretive data was last revised 2019. Albumin Creatinine Ratio, Ur <10 1 - 29 mg/g [facility] Urine 10/29/2024 11:4 7 AM BAND MANAGER 10/29/2024 4:14 PM BAND MANAGER us Sneha Schwarz NP LAB URINE ORDERABLES Final Re sult JACKELIN [address] Department [place] [address] from Last 3 Months or Most Recently Relevant to Health Maintenance Insurance [employer] [facility] Care Teams Apartment Rental Agent Relationship Specialty Start Date End Date Sneha Schwarz NP [address] [facility] [address] [place] [address] PCP - General Family Medicine 10/29/24
--- OUTSIDE RECORDS SUMMARY | 2025-06-12 18:48 | XMS_ITS | Encounter Summary ---
Author Organization [facility] Healthcare Address [address] [place] [address] Care Team Providers Care Supplies Packer Name Role Phone Sneha Schwarz NP Primary Care Provider [phone] Reason for Visit * Reason Onset Date Comments Medical Question/Miscellaneous 06/01/2025 Encounter Details Date Type Department Care Team (Late st Contact Info) Description 06/01/2025 Telephone [facility] Medical Group Primary Care at [address] [address] Sneha Schwarz NP [address] [place] [address] [address] [place] [address] Medical Question/Miscellaneous Social History Tobacco [...] on filedocumented in this encounter Care Teams Supplies Packer Relationship Specialty Start Date End Date Sneha Schwarz NP [address] [facility] [address] [place] [address] PCP - General Family Medicine 10/29/24 documented as of this encounter
--- OUTSIDE RECORDS SUMMARY | 2025-06-12 18:49 | XMS_ITS | Encounter Summary ---
Author Organization [facility] Healthcare Address [address] [place] [address] Care Team Providers Care Dairy Husbandry Teacher Name Role Phone Sneha Schwarz NP Primary Care Provider Encounter Details Date Type Department Care Team (Late st Contact Info) Description 06/01/2025 Results Follow-Up [facility] Cardiology [address] [facility] [address] [place] [address] Masha Varela NP [address] [place] [address] [place] [address] Transthoracic Echo (TTE) Limited/Followup Social History Tobacco [...] on filedocumented in this encounter Care Teams Dairy Husbandry Teacher Relationship Specialty Start Date End Date Sneha Schwarz NP [address] [facility] [address] [place] [address] PCP - General Family Medicine 10/29/24 documented as of this encounter
[2025-06-12 18:56] LABS: Hematocrit 43.1 % (37.0-47.0); Hemoglobin 14.4 g/dL (12.0-15.0); Immature Granulocyte Percent A 0.4 % (0-0.5); Lymphocytes Absolute Auto 1.86 K/mm3 (0.9-3.2); Mean Corpuscular HGB Conc 33.4 g/dl (32-36); Mean Corpuscular Hemoglobin 30.4 pg (26-34); Mean Corpuscular Volume 90.9 fl (80-100); Nucleated Red Blood Cells Absolute Auto 0.000 K/mm3 (0.0-0.012); Nucleated Red Blood Cells Perc 0.0 % (0.0-0.2); Platelet Count Result 431 k/mm3 (150-375); Red Blood Count 4.74 M/mm3 (4.2-5.4); White Blood Count 19.5 K/mm3 (4.5-10.0)
[2025-06-12 19:08] LABS: INR 1.1; Prothrombin Time 14.7 Seconds (11.1-14.7)
[2025-06-12 19:09] LABS: Partial Thromboplastin Time 29.3 Seconds (22.3-36.8)
[2025-06-12 19:23] LABS: Troponin I < 0.012 ng/mL (0.000-0.034)
--- NOTE | 2025-06-12 19:23 | PC.NURSE ---
Report received from KULWANT Merlos. Assumed care of patient at this time.
[2025-06-12] MEDS: ONDANSETRON INJ 4 MG/2 ML VIAL IV PUSH (19:35)
[2025-06-12] MEDS: BELLADONNA ALK/PHENOB ELIX 10 ML, MAG HYDROX/ALUMINUM HYD/SIMETH 30 ML, LIDOCAINE 2% VI... PO (19:35)
[2025-06-12] MEDS: MORPHINE SULFATE (*CRX) 4 MG/ML INJ IV PUSH (19:35)
[2025-06-12 19:56] LABS: Alanine Aminotransferase 32 U/L (6-35); Albumin Level 4.5 g/dL (3.5-5.1); Alkaline Phosphatase 127 U/L (38-126); Anion Gap 16 mmol/L (4-12); Aspartate Amino Transferase 31 U/L (14-36); Bilirubin,Total 0.8 mg/dL (0.2-1.3); Blood Urea Nitrogen 45 mg/dL (7-17); Calcium 10.0 mg/dL (8.4-10.2); Carbon Dioxide 32 mmol/L (22-30); Chloride 86 mmol/L (98-107); Estimated CRCL calculation 40 ml/min; Estimated Glomerular Filt Rate 32; Glucose 171 mg/dL (65-110); Lipase 42 U/L (23-300); Potassium 3.8 mmol/L (3.4-5.0); Sodium 134 mmol/L (137-145); Total Protein 10.2 g/dL (6.3-8.2)
[2025-06-12 20:05] LABS: NT Pro B Type Natriuretic Pept 479 pg/mL (19.9-100)
--- NOTE | 2025-06-12 20:57 | PC.NURSE ---
Patient requesting more pain medication, ERP notified.
[2025-06-12] MEDS: ASPIRIN 81 MG CHEWABLE TABLET 324 MG PO (21:08)
[2025-06-12] MEDS: NITROGLYCERIN SL 0.4 MG TABLET SUBLINGUAL (21:09)
--- NOTE | 2025-06-12 21:14 | PC.NURSE ---
Per ERP, no IV bp med needed at this time.
--- NOTE | 2025-06-12 21:45 | ECG_ITS ---
Test Date: 2025-06-12 21:55:56 Measurements Intervals [place] Rate: 100 P: 47 GA: 132 QRS: 47 QRSD: 92 T: 36 QT: 365 QTc: 471 Interpretive Statements SINUS TACHYCARDIA NONSPECIFIC ST-T WAVE ABNORMALITY- DIFFUSE LEADS BORDERLINE ECG Compared to ECG 06/12/2025 15:36:15 HEART RATE HAS DECREASED Electronically Signed On 06-13-2025 08:20:58 CDT by Wu Franco D.O.
[2025-06-12 22:18] LABS: Troponin I < 0.012 ng/mL (0.000-0.034)
[2025-06-12 22:20] LABS: Beta-Hydroxybutyrate/Acetoace. 2.99 mmol/L (0.02-0.27)
[2025-06-12] MEDS: SODIUM CHLORIDE 0.9% IV 1,000 ML 999 ML IV CONT ×2 (22:31)
[2025-06-12 22:49] LABS: Procalcitonin 0.3 ng/mL
[2025-06-12 23:20] LABS: Fractional Inspired Oxygen 21 %; HCO3 VBG 27.7 mEq/l (24.0-30.0); PCO2 VBG 40.9 mmHg (42.0-48.0); PO2 VBG 142.9 mmHg (35.0-45.0)
[2025-06-12 23:22] LABS: pH VBG 7.448 (7.300-7.400)
--- NOTE | 2025-06-12 23:24 | ADMGEN ---
This patient, Altaf Dejesus, was admitted to IMU Room 209-01. Patient/family oriented to hospital policies and general routines including ID bracelet, bed and alarms, visiting hours, pain management, procedures, bathroom and other care routines, personal items, smoking policy, room service/diet, and visiting hours. Information on how to activate the Rapid Response Team has been discussed. Patient/Family are encouraged to report perceived risks to care and to ask questions if they do not understand what they are told or what they should do.
--- NOTE | 2025-06-12 23:25 | PCRCNOTE ---
Pt. VBG delayed due to nursing having a hard time with blood draw.
[2025-06-13] VITALS (15 sets, daily range): BP systolic 123–152; BP diastolic 57–89; PULSE 82–102; RESP 14–22; TEMP 36.4–37.1; O2SAT 97–100
[2025-06-13] MEDS: SODIUM CHLORIDE 0.9% IV 1,000 ML 150 ML IV CONT ×2 (00:13→07:00)
--- NOTE | 2025-06-13 02:03 | PM.IMHP ---
H&P: HPI History of Present Illness Date/Time: 06/13/25 02:03 Chief Complaint: Nausea and vomiting followed by heartburn Narrative: 50-year-old female with a past medical history of type 2 diabetes mellitus, takotsubo cardiomyopathy essential hypertension and hyperlipidemia who presented to the ER via private vehicle due to nausea vomiting and chest pain. Patient reports that she has been feeling ill for the last 2 or 3 days. She has been having significant nausea with emesis of yellow to greenish material. After she had several episodes of emesis she then also developed some the small amounts of blood-streaked mucus. She has had associated sore throat and burning in her chest. Symptoms were unrelieved despite a GI cocktail and nitroglycerin. The patient also reports associated subjective fevers and chills. She admits that she does not check her blood glucoses very often and she knows that her A1c is ?too high. Her last hemoglobin A1c in April of last year was 10.8. She reports that she was trying to drink an increased amount of fluids but she does seem to vomit more. She reports that her chest discomfort is worse with reclining and improved with sitting up. Pain radiates to epigastric region. She did have a history of broken heart syndrome last April and had a cardiac catheterization which demonstrated nonocclusive coronary artery disease. She did not require cardiac stenting. She had initial troponin performed in the ER which was negative. She was found to have significant evidence a dehydration and received 2 L IV fluids. Her tachycardia improved after IV fluid administration. Initially she was admitted for further evaluation of the above factors and for checking serial troponins. She was noted to have significant leukocytosis, tachycardia and tachypnea. On further questioning the patient does admit that she has been having a wound on her buttocks near the top of for buttock crease that becomes very tender and swollen intermittently on and off for the last year so. She thought that the wound was due to her Jardiance because she just recently started taking her Jardiance again. The wound will occasionally spontaneously drain in get on her clothes. She has not mentioned this to her primary care provider or her because she finds it embarrassing. She denied any dysuria in reports actually decreased urine output. She denies any hematochezia or melena. She denies rectal pain with bowel movements but does have discomfort upon wiping due to the area of inflammation and infection at the top of her buttock crease. She denies any history of neuropathy or retinopathy. She admits she has never had a dilated eye exam. Her labs in the ER did demonstrate acute kidney injury. The patient is quite anxious about possibly developing kidney disease as both her mother and sister of complications of kidney failure, uncontrolled hypertension and diabetes. Review of Systems Review of Systems: 12 systems were reviewed with pertinent positives and negatives per HPI. Except as documented in the HPI, all other systems were reviewed and are negative. She denies dysuria or hematuria. She denies hematochezia, melena or changes in bowel habits. She does snore but denies any daytime fatigue or somnolence. [facility] Past Medical History Medical History (Updated 06/13/25 @ 03:51 by Jen Beauchamp DO) Granulomatous lung disease Hepatic steatosis Noted on imaging Coronary artery disease Nonobstructive coronary artery disease with less than 50% occlusion not requiring stenting on catheterization 04/2024 Takotsubo cardiomyopathy (05/05/24) Complicated by mural thrombus Sliding hiatal hernia Essential hypertension GERD (gastroesophageal reflux disease) Diabetes mellitus HLD (hyperlipidemia) Surgical History Surgical History (Updated 06/13/25 @ 03:32 by Jen Beauchamp DO) History of cardiac catheterization (05/04/24) History of 2 sections History of tubal ligation Family History Family History (Updated 06/13/25 @ 03:23 by Jen Beauchamp DO) Mother , age 56 Hypertension Diabetes mellitus End-stage renal disease on hemodialysis Sibling Diabetes mellitus End-stage renal disease on hemodialysis Son Pulmonary embolism, Onset Age: 26 Social History Social History (Updated 06/13/25 @ 03:35 by Jen Beauchamp DO) Social History: The patient reports that she and her have been together for 14 years in a been for 1 year. She had a total of 6 children her oldest son of what sounds like a pulmonary embolism at age 26. She currently lives with her and her children ranging in age from 14 down to 3 years old. 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 She denies any history of tobacco use or alcohol use. She occasionally smokes marijuana. Code status: Full code Surrogate decision maker: Smoking status: Never smoker Alcohol intake: never Substance use: current Substance use type: marijuana Last use: 05/03/24 Do You Feel Safe in your Home?: Yes Lack of Transportation: No Lack of Food: Never True Current Housing: I Have Housing Concerned About Future Housing: No Difficulty Paying Gas/Electric Bills: No Difficulty Paying for Meds: No Currently Unemployed: No Education: Grade School Difficulty w/ Childcare or Family Care: No Spiritual care concerns: No Meds Home Medications and Allergies Home Medications ?Medication ?Instructions ?Recorded ?Confirmed ?Type aspirin 81 mg chewable tablet 81 mg PO DAILY@0800 #30 tabs 05/06/24 06/12/25 Rx (Children's Aspirin) blood sugar diagnostic (OneTouch #1 [facility] 05/06/24 06/12/25 Rx Verio test strips) blood-glucose meter (OneTouch #1 [facility] 05/06/24 06/12/25 Rx Verio Flex Meter) empagliflozin 10 mg tablet 10 mg PO DAILY #30 tabs 05/06/24 06/12/25 Rx (Jardiance) furosemide 40 mg tablet 40 mg PO DAILY #30 tabs 05/06/24 06/12/25 Rx lancets 30 gauge (OneTouch Delica #1 pkg 05/06/24 06/12/25 Rx Plus Lancet) metformin 500 mg tablet 250 mg (1/2 x 500 mg) PO BIDWMEAL 05/06/24 06/12/25 Rx #60 tabs rosuvastatin 40 mg sprinkle capsule 40 mg PO DAILY #30 caps 05/06/24 06/12/25 Rx sacubitril 24 mg-valsartan 26 mg 1 tablet PO Q12HR #60 tabs 05/06/24 06/12/25 Rx tablet (Entresto) dulaglutide 0.75 mg/0.5 mL 0.75 mg subcut WEEKLY 06/12/25 06/12/25 History subcutaneous pen injector (Trulicity) Allergies Allergy/AdvReac Type Severity Reaction Status Date / Time No Known Allergies Allergy Verified 06/13/25 00:15 Vital Signs Vital Signs - 24 hr 06/12/25 15:39 06/12/25 18:38 06/12/25 18:39 Temperature 97.3 F L Pulse Rate 120 H 119 H 118 H Respiratory Rate 20 13 9 L Blood Pressure 153/84 H 170/114 H Pulse Oximetry 92 100 100 Oxygen Delivery Room Air 06/12/25 18:59 06/12/25 19:00 06/12/25 19:00 Temperature Pulse Rate 103 H 102 H Respiratory Rate 27 H Blood Pressure Pulse Oximetry 97 98 Oxygen Delivery Room Air 06/12/25 19:00 06/12/25 19:01 06/12/25 19:02 Temperature Pulse Rate 104 H 104 H 105 H Respiratory Rate 26 H 27 H 27 H Blood Pressure 183/106 H Pulse Oximetry 98 98 100 Oxygen Delivery 06/12/25 19:15 06/12/25 19:41 06/12/25 19:45 Temperature Pulse Rate 108 H 106 H 102 H Respiratory Rate 18 22 H 22 H Blood Pressure Pulse Oximetry 100 96 100 Oxygen Delivery 06/12/25 20:00 06/12/25 20:01 06/12/25 20:41 Temperature Pulse Rate 101 H 93 108 H Respiratory Rate 22 H 20 22 H Blood Pressure 165/95 H Pulse Oximetry 96 100 98 Oxygen Delivery 06/12/25 20:45 06/12/25 21:00 06/12/25 21:01 Temperature Pulse Rate 105 H 95 91 Respiratory Rate 20 22 H 19 Blood Pressure 157/92 H Pulse Oximetry 98 98 99 Oxygen Delivery 06/12/25 23:16 06/12/25 23:52 06/13/25 00:00 Temperature 98.1 F Pulse Rate 84 78 Respiratory Rate 17 20 Blood Pressure 142/76 H Pulse Oximetry 99 99 99 Oxygen Delivery Room Air 06/13/25 00:00 Temperature Pulse Rate 85 Respiratory Rate Blood Pressure Pulse Oximetry Oxygen Delivery Exam Narrative: 94.3 kg BMI 35.7 Const: Other: Acutely ill-appearing, obese, appears stated age HENMT: Other: Mucous membranes are dry, no oral pharyngeal erythema, fair dentition Eyes: Other: Pupils are equal and reactive, no scleral icterus Neck: Other: Large neck circumference, mild anterior cervical lymphadenopathy on the left Resp: Other: Mild tachypnea, no increased work of breathing, lungs are clear to auscultation bilaterally anterior and posterior [place]mer[place] Cardio: Other: Regular rate, regular rhythm, 2+ bilateral radial pedal pulses, no JVD, no murmur GI: Other: Soft, nontender, normoactive bowel sounds, no organomegaly Back/Spine/Pelvis: Other: Mild thoracic kyphosis Skin: Other: Warm to touch,, non jaundice, indurated acutely tender erythematous fluctuant area of abscess right upper buttock within the crease within another smaller lesion a few inches superior that is not acutely tender, the larger of the lesion does express purulent-appearing material that has a foul odor Neuro: Other: Alert oriented x4, speech is clear, no facial asymmetry, no localizing neurologic deficits noted during the course of conversation Extrem: Other: No clubbing, cyanosis or edema, no foot wounds, moves all extremities equally Psych: Other: Pleasant and cooperative but anxious, poor insight H&P: Results Labs Labs: Laboratory Tests 06/12/25 18:48 06/12/25 18:48 06/12/25 06/12/25 06/12/25 18:48 18:50 21:53 WBC 19.5 H RBC 4.74 Hgb 14.4 Hct 43.1 MCV 90.9 MCH 30.4 MCHC 33.4 RDW 12.2 Plt Count 431 H D MPV 9.5 Immature Gran % (Auto) 0.4 Neut % (Auto) 81.9 H Lymph % (Auto) 9.5 L Austin % (Auto) 7.9 Eos % (Auto) 0.0 Baso % (Auto) 0.3 Lymph # (Auto) 1.86 Austin # (Auto) 1.5 H Eos # (Auto) 0.0 Baso # (Auto) 0.1 Abs Immat Gran (auto) 0.08 H Absolute Neuts (auto) 16.0 H Absolute Nucleated RBC 0.000 Nucleated RBC % 0.0 PT 14.7 INR 1.1 APTT 29.3 VBG pH VBG pCO2 VBG pO2 VBG HCO3 O2 Delivery Device O2 Liters/Min FiO2 Sodium 134 L Potassium 3.8 Chloride 86 L Carbon Dioxide 32 H Anion Gap 16 H BUN 45 H D Creatinine 1.68 H Estim Creat Clear Calc 40 Estimated GFR 32 L Glucose 171 H Lactic Acid Calcium 10.0 Total Bilirubin 0.8 AST 31 ALT 32 Alkaline Phosphatase 127 H Troponin I < 0.012 < 0.012 NT-Pro-B Natriuret Pep 479 H Total Protein 10.2 H Albumin 4.5 Lipase 42 Beta-Hydroxybutyrate/Acetoacetate 2.99 H Procalcitonin 0.3 06/12/25 06/12/25 23:02 23:03 WBC RBC Hgb Hct MCV MCH MCHC RDW Plt Count MPV Immature Gran % (Auto) Neut % (Auto) Lymph % (Auto) Austin % (Auto) Eos % (Auto) Baso % (Auto) Lymph # (Auto) Austin # (Auto) Eos # (Auto) Baso # (Auto) Abs Immat Gran (auto) Absolute Neuts (auto) Absolute Nucleated RBC Nucleated RBC % PT INR APTT VBG pH 7.448 H* VBG pCO2 40.9 L VBG pO2 142.9 H VBG HCO3 27.7 O2 Delivery Device Not Reportable O2 Liters/Min Not Reportable FiO2 21 Sodium Potassium Chloride Carbon Dioxide Anion Gap BUN Creatinine Estim Creat Clear Calc Estimated GFR Glucose Lactic Acid 1.5 Calcium Total Bilirubin AST ALT Alkaline Phosphatase Troponin I NT-Pro-B Natriuret Pep Total Protein Albumin Lipase Beta-Hydroxybutyrate/Acetoacetate Procalcitonin Impressions Chest X-Ray 06/12/25 16:08 IMPRESSION: 1. No acute cardiopulmonary disease. Chest/Abdomen/Pelvis CTA 06/12/25 20:38 IMPRESSION: 1. No acute cardiopulmonary disease. 2. Mild wall thickening the distal esophagus which could be seen with esophagitis. 3. No acute intra-abdominal/pelvic process. Assessment and Plan Assessment and plan (1) Sepsis: Qualifiers: Sepsis type: sepsis due to unspecified organism Sepsis acute organ dysfunction status: with acute organ dysfunction Severe sepsis acute organ dysfunction type: acute renal failure Acute renal failure type: unspecified Severe sepsis shock status: without septic shock Qualified Code(s): A41.9 - Sepsis, unspecified organism; R65.20 - Severe sepsis without septic shock; N17.9 - Acute kidney failure, unspecified Code(s): A41.9 - Sepsis, unspecified organism Status: Acute (2) Infected pilonidal cyst: Code(s): L05.91 - Pilonidal cyst without abscess Status: Acute (3) KVNG (acute kidney injury): Code(s): N17.9 - Acute kidney failure, unspecified Status: Acute (4) Severe dehydration: Code(s): E86.0 - Dehydration Status: Acute (5) Esophagitis: Code(s): K20.90 - Esophagitis, unspecified without bleeding Status: Acute (6) Sliding hiatal hernia: Code(s): K44.9 - Diaphragmatic hernia without obstruction or gangrene Status: Acute (7) Non-cardiac chest pain: Code(s): R07.89 - Other chest pain Status: Acute (8) Hyperglycemia due to diabetes mellitus: Code(s): E11.65 - Type 2 diabetes mellitus with hyperglycemia Status: Acute (9) Essential hypertension: Code(s): I10 - Essential (primary) hypertension Status: Acute Plan Patient initially presented with chest pain but cardiac chest pain ruled out by serial troponins. CT demonstrated evidence of esophagitis and patient has known history of hiatal hernia. She has been having recent vomiting in reports blood-streaked emesis consistent with possible Maite-Victoria tear. She has not had any further vomiting since arrival to the IMU. Will start the patient on Protonix. Patient's nausea vomiting is likely due to sepsis and hyperglycemia related to who infected pilonidal cyst cyst that is currently draining purulent material. General surgery has been consulted. Patient been started on Zosyn after blood cultures were obtained. Will obtain lactic acid and blood cultures. The patient did receive 1 L fluid bolus in the ER will given additional 2 L fluid bolus and will continue maintenance fluids at 150 mL an hour. Patient does have a distant history of broken heart syndrome better EF was normal on last echo in she appears intervascular volume depleted. Will hold the patient's home Jardiance, Lasix, metformin and Entresto. She did have elevated beta hydroxybutyrate which is more likely due to dehydration and starvation ketosis and less likely due to DKA. Will repeat CMP and monitor anion gap and urine output closely. Patient does have evidence of esophagitis on CT scan. She likely has some component of chronic GERD given her history of chronic sliding hiatal hernia. Will increase Protonix to b.i.d and will add Carafate. The patient is still significantly dehydrated evidence by the fact that she still has not produced urine specimen. Patient is hyperglycemic. She admits she does not check her blood sugars. Importance of compliance with diabetic medications and monitoring of glucoses was discussed with the patient in order to avoid associated diabetic complications. Patient voiced understanding. Will hold the patient's oral hypoglycemic agents. Will check hemoglobin A1c and place on sliding scale insulin and hypoglycemia protocol as needed. Will transfer to the medical floor. Will discontinue telemetry as patient tachycardia has resolved and she has had no evidence of arrhythmia. Patient has been admitted as observation status. MEDICAL DECISION MAKING NARRATIVE -Spoke with the ED provider in detail regarding patient's evaluation, workup and management -Patient seen and examined at bedside -Collaborated with patient's nurse at the bedside in detail and addressed all concerns -Labs, electrolytes, radiology, investigations and test results personally reviewed and interpreted unless otherwise specified -ED/Consult/Nursing/Ancilliary notes on the chart reviewed and appreciated -Spoke with patient at bedside and diagnosis and plan of care was discussed. All questions answered. Quality VTE Prophylaxis VTE prophylaxis: pharmacologic ordered (Lovenox 40 mg subQ daily) Hospitalist [facility] Advance Care Plan I have confirmed that the patient's Advanced Care Plan is present, code status is documented, or surrogate decision maker is listed in patient medical record.: Yes Medication Reconciliation I have utilized all available resources to obtain, update and review the patients current medications (includes all prescriptions, OTC, herbals, cannabis, and nutritional supplements).: Yes
[2025-06-13 02:17] LABS: Hematocrit 39.3 % (37.0-47.0); Hemoglobin 13.1 g/dL (12.0-15.0); Immature Granulocyte Percent A 0.3 % (0-0.5); Lymphocytes Absolute Auto 1.99 K/mm3 (0.9-3.2); Mean Corpuscular HGB Conc 33.3 g/dl (32-36); Mean Corpuscular Hemoglobin 30.7 pg (26-34); Mean Corpuscular Volume 92.0 fl (80-100); Nucleated Red Blood Cells Absolute Auto 0.000 K/mm3 (0.0-0.012); Nucleated Red Blood Cells Perc 0.0 % (0.0-0.2); Platelet Count Result 378 k/mm3 (150-375); Red Blood Count 4.27 M/mm3 (4.2-5.4); White Blood Count 16.6 K/mm3 (4.5-10.0)
[2025-06-13] MEDS: PIPERACILLIN/TAZOBACTAM SOD 3.375 GM in SODIUM CHLORIDE 0.9% IV 50 ML 100 ML IVPB ×3 (02:25→14:58)
[2025-06-13 02:32] LABS: Alanine Aminotransferase 28 U/L (6-35); Albumin Level 4.2 g/dL (3.5-5.1); Alkaline Phosphatase 117 U/L (38-126); Anion Gap 13 mmol/L (4-12); Aspartate Amino Transferase 27 U/L (14-36); Bilirubin,Total 0.7 mg/dL (0.2-1.3); Blood Urea Nitrogen 43 mg/dL (7-17); Calcium 9.5 mg/dL (8.4-10.2); Carbon Dioxide 28 mmol/L (22-30); Chloride 90 mmol/L (98-107); Estimated CRCL calculation 49 ml/min; Estimated Glomerular Filt Rate 40; Glucose 162 mg/dL (65-110); Magnesium 2.3 mg/dL (1.6-2.3); Potassium 3.8 mmol/L (3.4-5.0); Sodium 131 mmol/L (137-145); Total Protein 9.1 g/dL (6.3-8.2)
[2025-06-13 02:43] LABS: Troponin I < 0.012 ng/mL (0.000-0.034)
[2025-06-13 03:20] LABS: Hemoglobin A1C 6.0 % (<5.7)
[2025-06-13] MEDS: SODIUM CHLORIDE 0.9% IV 1,000 ML 999 ML IV CONT (04:27)
[2025-06-13 08:02] LABS: Add Urine Microscopic? YES; Appearance Urine Clear (Clear); Glucose Urine UA 3+ mg/dL (Negative); Leukocyte Esterase Ur Negative LEU/UL (Negative); Need Manual Microscopic Reviewed; Nitrate Urine Negative (Negative); Non Pathogenic Casts 0-2; Specific Grav Ur > 1.045 (1.001-1.035)
[2025-06-13] MEDS: PANTOPRAZOLE SODIUM IV 40 MG VIAL IV PUSH (09:12)
--- NOTE | 2025-06-13 11:20 | P.PNIM_ITS ---
Progress Note: A&P Assessment and Plan (1) Infected pilonidal cyst: Code(s): L05.91 - Pilonidal cyst without abscess Status: Acute Assessment and Plan: Will undergo incision and drainage Started on Zosyn Lactic acid 1.5 Received fluids-3L Maintenance fluids at 150 mL an hour. Monitor vitals and culture Surgery on board (2) Sepsis: Qualifiers: Acute renal failure type: unspecified Sepsis acute organ dysfunction status: with acute organ dysfunction Sepsis type: sepsis due to unspecified organism Severe sepsis acute organ dysfunction type: acute renal failure Severe sepsis shock status: without septic shock Qualified Code(s): A41.9 - Sepsis, unspecified organism; R65.20 - Severe sepsis without septic shock; N17.9 - Acute kidney failure, unspecified Code(s): A41.9 - Sepsis, unspecified organism Status: Acute Assessment and Plan: As above (3) KVNG (acute kidney injury): Code(s): N17.9 - Acute kidney failure, unspecified Status: Acute Assessment and Plan: Due to dehydration Avoid nephrotoxic drugs Trend creatinine and BUN (4) Severe dehydration: Code(s): E86.0 - Dehydration Status: Acute Assessment and Plan: As above (5) Esophagitis: Code(s): K20.90 - Esophagitis, unspecified without bleeding Status: Acute Assessment and Plan: Continue PPI (6) Sliding hiatal hernia: Code(s): K44.9 - Diaphragmatic hernia without obstruction or gangrene Status: Acute Assessment and Plan: Managed as OP (7) Non-cardiac chest pain: Code(s): R07.89 - Other chest pain Status: Acute Assessment and Plan: Due to esophagitis Negative troponin History of Takotsubo Cardiomyopathy Previous history of anticoagulation was discontinued by her personnel technician Hold Entresto and lasix due to dehydration (8) Hyperglycemia due to diabetes mellitus: Code(s): E11.65 - Type 2 diabetes mellitus with hyperglycemia Status: Acute Assessment and Plan: Will hold the patient's home Jardiance, Lasix, metformin and Entresto. SSI Hypoglycemia protocol Elevated beta hydroxybutyrate which is more likely due to dehydration and starvation ketosis and less likely due to DKA (9) Essential hypertension: Code(s): I10 - Essential (primary) hypertension Status: Acute Assessment and Plan: Hold HTN medication Plan Code status:Full code DVT Prophylaxis: Lovenox 40mg Sub Q Subjective Date/time seen: 06/13/25 11:20 Interval history: Interval HPI:50-year-old female with a past medical history of type 2 diabetes mellitus, takotsubo cardiomyopathy essential hypertension and hyperlipidemia who presented to the ER via private vehicle due to nausea vomiting and chest pain. She did have a history of broken heart syndrome last April and had a cardiac catheterization which demonstrated nonocclusive coronary artery disease. She did not require cardiac stenting. She had initial troponin performed in the ER which was negative. Patient has wound on her buttocks near the top of for buttock crease that becomes very tender and swollen intermittently on and off for the last year.She has not mentioned this to her primary care provider or her because she finds it embarrassing. Patient has evidence of esophagitis on CT scan. 06/13: Patient will undergo incision and drainage of pilonidal cyst. Review of Systems Review of Systems: 12 systems were reviewed with pertinent positives and negatives per HPI. Except as documented in the HPI, all other systems were reviewed and are negative. She denies dysuria or hematuria. She denies hematochezia, melena or changes in bowel habits. She does snore but denies any daytime fatigue or somnolence. Exam Narrative: 94.3 kg BMI 35.7 Const: Other: Acutely ill-appearing, obese, appears stated age HENMT: Other: Mucous membranes are dry, no oral pharyngeal erythema, fair dentition Eyes: Other: Pupils are equal and reactive, no scleral icterus Neck: Other: Large neck circumference, mild anterior cervical lymphadenopathy on the left Resp: Other: Mild tachypnea, no increased work of breathing, lungs are clear to auscultation bilaterally anterior and posterior [place] Cardio: Other: Regular rate, regular rhythm, 2+ bilateral radial pedal pulses, no JVD, no murmur GI: Other: Soft, nontender, normoactive bowel sounds, no organomegaly Back/Spine/Pelvis: Other: Mild thoracic kyphosis Skin: Other: Warm to touch,, non jaundice, indurated acutely tender erythematous fluctuant area of abscess right upper buttock within the crease within another smaller lesion a few inches superior that is not acutely tender, the larger of the lesion does express purulent-appearing material that has a foul odor Neuro: Other: Alert oriented x4, speech is clear, no facial asymmetry, no localizing neurologic deficits noted during the course of conversation Extrem: Other: No clubbing, cyanosis or edema, no foot wounds, moves all extremities equally Psych: Other: Pleasant and cooperative but anxious, poor insight Objective Data Vital Signs Vital Signs: Vital Signs - 24 hr 06/12/25 15:39 06/12/25 18:38 06/12/25 18:39 Temperature 97.3 F L Pulse Rate 120 H 119 H 118 H Respiratory Rate 20 13 9 L Blood Pressure 153/84 H 170/114 H Pulse Oximetry 92 100 100 Oxygen Delivery Room Air 06/12/25 18:59 06/12/25 19:00 06/12/25 19:00 Temperature Pulse Rate 103 H 102 H Respiratory Rate 27 H Blood Pressure Pulse Oximetry 97 98 Oxygen Delivery Room Air 06/12/25 19:00 06/12/25 19:01 06/12/25 19:02 Temperature Pulse Rate 104 H 104 H 105 H Respiratory Rate 26 H 27 H 27 H Blood Pressure 183/106 H Pulse Oximetry 98 98 100 Oxygen Delivery 06/12/25 19:15 06/12/25 19:41 06/12/25 19:45 Temperature Pulse Rate 108 H 106 H 102 H Respiratory Rate 18 22 H 22 H Blood Pressure Pulse Oximetry 100 96 100 Oxygen Delivery 06/12/25 20:00 06/12/25 20:01 06/12/25 20:41 Temperature Pulse Rate 101 H 93 108 H Respiratory Rate 22 H 20 22 H Blood Pressure 165/95 H Pulse Oximetry 96 100 98 Oxygen Delivery 06/12/25 20:45 06/12/25 21:00 06/12/25 21:01 Temperature Pulse Rate 105 H 95 91 Respiratory Rate 20 22 H 19 Blood Pressure 157/92 H Pulse Oximetry 98 98 99 Oxygen Delivery 06/12/25 23:16 06/12/25 23:52 06/13/25 00:00 Temperature 98.1 F Pulse Rate 84 78 Respiratory Rate 17 20 Blood Pressure 142/76 H Pulse Oximetry 99 99 99 Oxygen Delivery Room Air 06/13/25 00:00 06/13/25 02:00 06/13/25 03:46 Temperature 97.6 F Pulse Rate 85 92 91 Respiratory Rate 16 Blood Pressure 142/70 H Pulse Oximetry 98 Oxygen Delivery 06/13/25 07:53 Temperature 98.4 F Pulse Rate 89 Respiratory Rate 16 Blood Pressure 140/76 Pulse Oximetry 99 Oxygen Delivery Intake/Output Intake/Output: Intake & Output 06/10/25 06/11/25 06/12/25 06/13/25 23:59 23:59 23:59 23:59 Intake Total 2050 Output Total 300 Balance 1750 Meds/Results Medications: Active Medications Generic Name Dose Route Start Last Admin Trade Name Freq PRN Reason Stop Dose Admin Acetaminophen 650 mg 06/13/25 03:52 Acetaminophen 325 Mg Tablet PO Q4H PRN Mild Pain (1-3) or Fever Dextrose 12.5 gm 06/13/25 04:01 Dextrose 50% 25 Gm/50 Ml Syringe IV PUSH PRN PRN Hypoglycemia Protocol Enoxaparin Sodium 40 mg 06/13/25 09:00 Enoxaparin 40 Mg/0.4 Ml Syringe SUB-Q DAILY NASREEN Glucagon 1 mg 06/13/25 04:01 Glucagon For Inj 1 Mg Vial IM PRN PRN Hypoglycemia Protocol Glucose 15 gm 06/13/25 04:01 Glucose Oral Gel 15 Gm Of Glucse In 37.5 Gm Tube PO PRN PRN Hypoglycemia Protocol Sodium Chloride 1,000 mls @ 150 mls/hr 06/12/25 22:00 06/13/25 07:00 Normal Saline Iv IV CONT 150 mls/hr .Q6H40M NASREEN Administration Piperacillin Sod/Tazobactam 50 mls @ 100 mls/hr 06/13/25 02:00 06/13/25 09:11 Sod 3.375 gm/ Sodium Chloride IVPB 100 mls/hr Q6HR NASREEN Administration Dextrose 1,000 mls @ 100 mls/hr 06/13/25 04:01 Dextrose 5% 1,000 Ml IVPB PRN PRN Hypoglycemia Protocol Insulin Aspart 3 - 6 units 06/13/25 08:00 06/13/25 09:12 Insulin Aspart (*Bkc) 100 Units/Ml SUB-Q Not Given TIDWM NASREEN Protocol Ondansetron HCl 4 mg 06/12/25 22:45 Ondansetron Inj 4 Mg/2 Ml Vial IV PUSH Q4H PRN Nausea And Vomiting Pantoprazole Sodium 40 mg 06/13/25 09:00 06/13/25 09:12 Pantoprazole Sodium Iv 40 Mg Vial IV PUSH 40 mg Q12HR NASREEN Administration Sucralfate 1 gm 08/30/25 06:30 06/13/25 06:42 Sucralfate 1 Gm Tablet PO Not Given [facility] Radiology Results: ITS Impressions Chest X-Ray 06/12/25 16:08 IMPRESSION: 1. No acute cardiopulmonary disease. Chest/Abdomen/Pelvis CTA 06/12/25 20:38 IMPRESSION: 1. No acute cardiopulmonary disease. 2. Mild wall thickening the distal esophagus which could be seen with esophagitis. 3. No acute intra-abdominal/pelvic process. Labs Labs: Laboratory Results - last 24 hr 06/12/25 06/12/25 06/12/25 18:48 18:50 21:53 WBC 19.5 H RBC 4.74 Hgb 14.4 Hct 43.1 MCV 90.9 MCH 30.4 MCHC 33.4 RDW 12.2 Plt Count 431 H D MPV 9.5 Immature Gran % (Auto) 0.4 Neut % (Auto) 81.9 H Lymph % (Auto) 9.5 L [place] % (Auto) 7.9 Eos % (Auto) 0.0 Baso % (Auto) 0.3 Lymph # (Auto) 1.86 [place] # (Auto) 1.5 H Eos # (Auto) 0.0 Baso # (Auto) 0.1 Abs Immat Gran (auto) 0.08 H Absolute Neuts (auto) 16.0 H Absolute Nucleated RBC 0.000 Nucleated RBC % 0.0 PT 14.7 INR 1.1 APTT 29.3 VBG pH VBG pCO2 VBG pO2 VBG HCO3 O2 Delivery Device O2 Liters/Min FiO2 Sodium 134 L Potassium 3.8 Chloride 86 L Carbon Dioxide 32 H Anion Gap 16 H BUN 45 H D Creatinine 1.68 H Estim Creat Clear Calc 40 Estimated GFR 32 L Glucose 171 H Hemoglobin A1c Lactic Acid Calcium 10.0 Magnesium Total Bilirubin 0.8 AST 31 ALT 32 Alkaline Phosphatase 127 H Troponin I < 0.012 < 0.012 NT-Pro-B Natriuret Pep 479 H Total Protein 10.2 H Albumin 4.5 Lipase 42 Beta-Hydroxybutyrate/Acetoacetate 2.99 H Procalcitonin 0.3 Urine Color Urine Appearance Urine pH Ur Specific [place] Urine Protein Urine Glucose (UA) Urine Ketones Ur Blood (Man) Urine Nitrate Urine Bilirubin Urine Urobilinogen Add Ur Microanalysis Leukocyte Esterase Rfl Urine RBC Urine WBC Ur Squamous Epith Cells Urine Bacteria Urine Casts 06/12/25 06/12/25 06/13/25 23:02 23:03 02:09 WBC 16.6 H RBC 4.27 Hgb 13.1 Hct 39.3 MCV 92.0 MCH 30.7 MCHC 33.3 RDW 12.3 Plt Count 378 H MPV 9.5 Immature Gran % (Auto) 0.3 Neut % (Auto) 78.6 H Lymph % (Auto) 12.0 L [place] % (Auto) 8.7 H Eos % (Auto) 0.1 Baso % (Auto) 0.3 Lymph # (Auto) 1.99 [place] # (Auto) 1.4 H Eos # (Auto) 0.0 Baso # (Auto) 0.1 Abs Immat Gran (auto) 0.05 H Absolute Neuts (auto) 13.0 H Absolute Nucleated RBC 0.000 Nucleated RBC % 0.0 PT INR APTT VBG pH 7.448 H* VBG pCO2 40.9 L VBG pO2 142.9 H VBG HCO3 27.7 O2 Delivery Device Not Reportable O2 Liters/Min Not Reportable FiO2 21 Sodium 131 L Potassium 3.8 Chloride 90 L Carbon Dioxide 28 Anion Gap 13 H BUN 43 H Creatinine 1.39 H Estim Creat Clear Calc 49 Estimated GFR 40 L Glucose 162 H Hemoglobin A1c 6.0 H Lactic Acid 1.5 Calcium 9.5 Magnesium 2.3 Total Bilirubin 0.7 AST 27 ALT 28 Alkaline Phosphatase 117 Troponin I < 0.012 NT-Pro-B Natriuret Pep Total Protein 9.1 H Albumin 4.2 Lipase Beta-Hydroxybutyrate/Acetoacetate Procalcitonin Urine Color Urine Appearance Urine pH Ur Specific [place] Urine Protein Urine Glucose (UA) Urine Ketones Ur Blood (Man) Urine Nitrate Urine Bilirubin Urine Urobilinogen Add Ur Microanalysis Leukocyte Esterase Rfl Urine RBC Urine WBC Ur Squamous Epith Cells Urine Bacteria Urine Casts 06/13/25 07:23 WBC RBC Hgb Hct MCV MCH MCHC RDW Plt Count MPV Immature Gran % (Auto) Neut % (Auto) Lymph % (Auto) [place] % (Auto) Eos % (Auto) Baso % (Auto) Lymph # (Auto) [place] # (Auto) Eos # (Auto) Baso # (Auto) Abs Immat Gran (auto) Absolute Neuts (auto) Absolute Nucleated RBC Nucleated RBC % PT INR APTT VBG pH VBG pCO2 VBG pO2 VBG HCO3 O2 Delivery Device O2 Liters/Min FiO2 Sodium Potassium Chloride Carbon Dioxide Anion Gap BUN Creatinine Estim Creat Clear Calc Estimated GFR Glucose Hemoglobin A1c Lactic Acid Calcium Magnesium Total Bilirubin AST ALT Alkaline Phosphatase Troponin I NT-Pro-B Natriuret Pep Total Protein Albumin Lipase Beta-Hydroxybutyrate/Acetoacetate Procalcitonin Urine Color Yellow Urine Appearance Clear Urine pH 5.0 Ur Specific [place] > 1.045 H Urine Protein Trace Urine Glucose (UA) 3+ H Urine Ketones 1+ H Ur Blood (Man) Negative Urine Nitrate Negative Urine Bilirubin Negative Urine Urobilinogen 1.0 Add Ur Microanalysis Reviewed Leukocyte Esterase Rfl Negative Urine RBC 0-2 Urine WBC 11-20 H Ur Squamous Epith Cells Occasional Urine Bacteria None seen Urine Casts 0-2 Quality VTE Prophylaxis VTE prophylaxis: pharmacologic ordered (Lovenox 40 mg subQ daily) Hospitalist MIPS Advance Care Plan I have confirmed that the patient's Advanced Care Plan is present, code status is documented, or surrogate decision maker is listed in patient medical record.: Yes Medication Reconciliation I have utilized all available resources to obtain, update and review the patients current medications (includes all prescriptions, OTC, herbals, cannabis, and nutritional supplements).: Yes
--- NOTE | 2025-06-13 13:21 | WPDANESEPP ---
Anes - Eval Pre Procedure Procedure: Operation Date: 06/13/25 14:00 Proposed Procedures p I&D Gia-Rectal Abscess - Isaiah Reyes MD Date/Time: 06/13/25 13:21 Surgeon: Eric Preop Diagnosis: Infected Pilonidal Cyst Pre Op Diagnosis: CHEST PAIN, ESOPHAGITIS, KVNG Patient Data Age: 50 Gender: F Height: 1.63 m Weight: 94.3 kg Last Vital Signs Temp 98.4 F 06/13/25 07:53 Pulse 89 06/13/25 07:53 Resp 16 06/13/25 07:53 BP 140/76 06/13/25 07:53 Pulse Ox 99 06/13/25 07:53 O2 Del Method Room Air 06/13/25 00:00 Allergies Allergy/AdvReac Type Severity Reaction Status Date / Time No Known Allergies Allergy Verified 06/13/25 00:15 Home Medications ?Medication ?Instructions ?Recorded ?Confirmed ?Type aspirin 81 mg chewable tablet 81 mg PO DAILY@0800 #30 tabs 05/06/24 06/12/25 Rx (Children's Aspirin) blood sugar diagnostic (OneTouch #1 g 05/06/24 06/12/25 Rx Verio test strips) blood-glucose meter (OneTouch #1 pkg 05/06/24 06/12/25 Rx Verio Flex Meter) empagliflozin 10 mg tablet 10 mg PO DAILY #30 tabs 05/06/24 06/12/25 Rx (Jardiance) furosemide 40 mg tablet 40 mg PO DAILY #30 tabs 05/06/24 06/12/25 Rx lancets 30 gauge (OneTouch Delica #1 pkg 05/06/24 06/12/25 Rx Plus Lancet) metformin 500 mg tablet 250 mg (1/2 x 500 mg) PO BIDWMEAL 05/06/24 06/12/25 Rx #60 tabs rosuvastatin 40 mg sprinkle capsule 40 mg PO DAILY #30 caps 05/06/24 06/12/25 Rx sacubitril 24 mg-valsartan 26 mg 1 tablet PO Q12HR #60 tabs 05/06/24 06/12/25 Rx tablet (Entresto) dulaglutide 0.75 mg/0.5 mL 0.75 mg subcut WEEKLY 06/12/25 06/12/25 History subcutaneous pen injector (Trulicity) Laboratory Tests 06/12/25 06/12/25 06/12/25 18:48 18:50 21:53 WBC 19.5 H K/mm3 (4.5-10.0) RBC 4.74 M/mm3 (4.2-5.4) Hgb 14.4 g/dL (12.0-15.0) Hct 43.1 % (37.0-47.0) MCV 90.9 fl (80-100) MCH 30.4 pg (26-34) MCHC 33.4 g/dl (32-36) RDW 12.2 % (11.5-14.5) Plt Count 431 H D k/mm3 (150-375) MPV 9.5 fl (7.4-10.4) Immature Gran % (Auto) 0.4 % (0-0.5) Neut % (Auto) 81.9 H % (45.5-73.1) Lymph % (Auto) 9.5 L % (18.3-44.2) [place] % (Auto) 7.9 % (2.6-8.5) Eos % (Auto) 0.0 % (0-4.4) Baso % (Auto) 0.3 % (0.2-1.2) Lymph # (Auto) 1.86 K/mm3 (0.9-3.2) [place] # (Auto) 1.5 H K/mm3 (0.1-0.6) Eos # (Auto) 0.0 K/mm3 (0-0.3) Baso # (Auto) 0.1 K/mm3 (0.0-0.1) Abs Immat Gran (auto) 0.08 H K/mm3 (0.00-0.031) Absolute Neuts (auto) 16.0 H K/mm3 (1.3-6.7) Absolute Nucleated RBC 0.000 K/mm3 (0.0-0.012) Nucleated RBC % 0.0 % (0.0-0.2) PT 14.7 Seconds (11.1-14.7) INR 1.1 APTT 29.3 Seconds (22.3-36.8) VBG pH VBG pCO2 VBG pO2 VBG HCO3 O2 Delivery Device O2 Liters/Min FiO2 Sodium 134 L mmol/L (137-145) Potassium 3.8 mmol/L (3.4-5.0) Chloride 86 L mmol/L (98-107) Carbon Dioxide 32 H mmol/L (22-30) Anion Gap 16 H mmol/L (4-12) BUN 45 H D mg/dL (7-17) Creatinine 1.68 H mg/dL (0.7-1.0) Estim Creat Clear Calc 40 ml/min Estimated GFR 32 L (59 - ) Glucose 171 H mg/dL (65-110) POC Capillary Glucose Hemoglobin A1c Lactic Acid Calcium 10.0 mg/dL (8.4-10.2) Magnesium Total Bilirubin 0.8 mg/dL (0.2-1.3) AST 31 U/L (14-36) ALT 32 U/L (6-35) Alkaline Phosphatase 127 H U/L (38-126) Troponin I < 0.012 ng/mL < 0.012 ng/mL (0.000-0.034) (0.000-0.034) NT-Pro-B Natriuret Pep 479 H pg/mL (19.9-100) Total Protein 10.2 H g/dL (6.3-8.2) Albumin 4.5 g/dL (3.5-5.1) Lipase 42 U/L (23-300) Beta-Hydroxybutyrate/Acetoacetate 2.99 H mmol/L (0.02-0.27) Procalcitonin 0.3 ng/mL Urine Color Urine Appearance Urine pH Ur Specific [place] Urine Protein Urine Glucose (UA) Urine Ketones Ur Blood (Man) Urine Nitrate Urine Bilirubin Urine Urobilinogen Add Ur Microanalysis Leukocyte Esterase Rfl Urine RBC Urine WBC Ur Squamous Epith Cells Urine Bacteria Urine Casts 06/12/25 06/12/25 06/13/25 23:02 23:03 02:09 WBC 16.6 H K/mm3 (4.5-10.0) RBC 4.27 M/mm3 (4.2-5.4) Hgb 13.1 g/dL (12.0-15.0) Hct 39.3 % (37.0-47.0) MCV 92.0 fl (80-100) MCH 30.7 pg (26-34) MCHC 33.3 g/dl (32-36) RDW 12.3 % (11.5-14.5) Plt Count 378 H k/mm3 (150-375) MPV 9.5 fl (7.4-10.4) Immature Gran % (Auto) 0.3 % (0-0.5) Neut % (Auto) 78.6 H % (45.5-73.1) Lymph % (Auto) 12.0 L % (18.3-44.2) [place] % (Auto) 8.7 H % (2.6-8.5) Eos % (Auto) 0.1 % (0-4.4) Baso % (Auto) 0.3 % (0.2-1.2) Lymph # (Auto) 1.99 K/mm3 (0.9-3.2) [place] # (Auto) 1.4 H K/mm3 (0.1-0.6) Eos # (Auto) 0.0 K/mm3 (0-0.3) Baso # (Auto) 0.1 K/mm3 (0.0-0.1) Abs Immat Gran (auto) 0.05 H K/mm3 (0.00-0.031) Absolute Neuts (auto) 13.0 H K/mm3 (1.3-6.7) Absolute Nucleated RBC 0.000 K/mm3 (0.0-0.012) Nucleated RBC % 0.0 % (0.0-0.2) PT INR APTT VBG pH 7.448 H* (7.300-7.400) VBG pCO2 40.9 L mmHg (42.0-48.0) VBG pO2 142.9 H mmHg (35.0-45.0) VBG HCO3 27.7 mEq/l (24.0-30.0) O2 Delivery Device Not Reportable O2 Liters/Min Not Reportable FiO2 21 % Sodium 131 L mmol/L (137-145) Potassium 3.8 mmol/L (3.4-5.0) Chloride 90 L mmol/L (98-107) Carbon Dioxide 28 mmol/L (22-30) Anion Gap 13 H mmol/L (4-12) BUN 43 H mg/dL (7-17) Creatinine 1.39 H mg/dL (0.7-1.0) Estim Creat Clear Calc 49 ml/min Estimated GFR 40 L (59 - ) Glucose 162 H mg/dL (65-110) POC Capillary Glucose Hemoglobin A1c 6.0 H % (<5.7) Lactic Acid 1.5 mmol/L (0.7-2.0) Calcium 9.5 mg/dL (8.4-10.2) Magnesium 2.3 mg/dL (1.6-2.3) Total Bilirubin 0.7 mg/dL (0.2-1.3) AST 27 U/L (14-36) ALT 28 U/L (6-35) Alkaline Phosphatase 117 U/L (38-126) Troponin I < 0.012 ng/mL (0.000-0.034) NT-Pro-B Natriuret Pep Total Protein 9.1 H g/dL (6.3-8.2) Albumin 4.2 g/dL (3.5-5.1) Lipase Beta-Hydroxybutyrate/Acetoacetate Procalcitonin Urine Color Urine Appearance Urine pH Ur Specific [place] Urine Protein Urine Glucose (UA) Urine Ketones Ur Blood (Man) Urine Nitrate Urine Bilirubin Urine Urobilinogen Add Ur Microanalysis Leukocyte Esterase Rfl Urine RBC Urine WBC Ur Squamous Epith Cells Urine Bacteria Urine Casts 06/13/25 06/13/25 07:23 11:45 WBC RBC Hgb Hct MCV MCH MCHC RDW Plt Count MPV Immature Gran % (Auto) Neut % (Auto) Lymph % (Auto) [place] % (Auto) Eos % (Auto) Baso % (Auto) Lymph # (Auto) [place] # (Auto) Eos # (Auto) Baso # (Auto) Abs Immat Gran (auto) Absolute Neuts (auto) Absolute Nucleated RBC Nucleated RBC % PT INR APTT VBG pH VBG pCO2 VBG pO2 VBG HCO3 O2 Delivery Device O2 Liters/Min FiO2 Sodium Potassium Chloride Carbon Dioxide Anion Gap BUN Creatinine Estim Creat Clear Calc Estimated GFR Glucose POC Capillary Glucose 121 H mg/dl (65-105) Hemoglobin A1c Lactic Acid Calcium Magnesium Total Bilirubin AST ALT Alkaline Phosphatase Troponin I NT-Pro-B Natriuret Pep Total Protein Albumin Lipase Beta-Hydroxybutyrate/Acetoacetate Procalcitonin Urine Color Yellow (Yellow) Urine Appearance Clear (Clear) Urine pH 5.0 (5.0-9.0) Ur Specific [place] > 1.045 H (1.001-1.035) Urine Protein Trace mg/dL (Negative) Urine Glucose (UA) 3+ H mg/dL (Negative) Urine Ketones 1+ H mg/dL (Negative) Ur Blood (Man) Negative (Negative) Urine Nitrate Negative (Negative) Urine Bilirubin Negative (Negative) Urine Urobilinogen 1.0 mg/dL (<2.0) Add Ur Microanalysis Reviewed Leukocyte Esterase Rfl Negative AUDREY/UL (Negative) Urine RBC 0-2 /hpf (0-2) Urine WBC 11-20 H /hpf (0-3) Ur Squamous Epith Cells Occasional /hpf (Few) Urine Bacteria None seen /hpf Urine Casts 0-2 ECG: SR 80's. pt presented tachycardic upon admission w/HR 110-120's, improved to 80's now. per hospitalist, telemetry discontinued & pt being transferred from IMU to medical floor Other studies: Echo: 05/05/24 EF 50-55%, diagnosed with type II ME on that admission r/t takotsubo cardiomyopathy/ broken heart syndrome Patient hx anesthesia problems: none Family hx anesthesia problems: none Results Review: All pre-operative results and documents have been reviewed as part of the pre-operative evaluation. [facility] Past Medical History Medical History (Updated 06/13/25 @ 13:31 by Suzi Newman CRNA) Granulomatous lung disease Hepatic steatosis Noted on imaging Coronary artery disease Nonobstructive coronary artery disease with less than 50% occlusion not requiring stenting on catheterization 04/2024 Takotsubo cardiomyopathy (05/05/24) Complicated by mural thrombus Sliding hiatal hernia Essential hypertension GERD (gastroesophageal reflux disease) Diabetes mellitus juardiance HLD (hyperlipidemia) Surgical History Surgical History History of cardiac catheterization (05/04/24) History of 2 sections History of tubal ligation Family History Family History Mother , age 56 Hypertension Diabetes mellitus End-stage renal disease on hemodialysis Sibling Diabetes mellitus End-stage renal disease on hemodialysis Son Pulmonary embolism, Onset Age: 26 Social History Social History Social History: The patient reports that she and her have been together for 14 years in a been for 1 year. She had a total of 6 children her oldest son of what sounds like a pulmonary embolism at age 26. She currently lives with her and her children ranging in age from 14 down to 3 years old. 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 She denies any history of tobacco use or alcohol use. She occasionally smokes marijuana. Code status: Full code Surrogate decision maker: Smoking status: Never smoker Alcohol intake: never Substance use: current Substance use type: marijuana Last use: 05/03/24 Do You Feel Safe in your Home?: Yes Lack of Transportation: No Lack of Food: Never True Current Housing: I Have Housing Concerned About Future Housing: No Difficulty Paying Gas/Electric Bills: No Difficulty Paying for Meds: No Currently Unemployed: No Education: Grade School Difficulty w/ Childcare or Family Care: No Spiritual care concerns: No Exam Day of Procedure 06/13/25 13:21
--- NOTE | 2025-06-13 13:33 | PM.CNGS ---
Assessment and Plan Assessment and plan (1) Sacrococcygeal pilonidal cyst with abscess: Code(s): L05.01 - Pilonidal cyst with abscess Status: Acute Assessment and Plan: Agree this is likely the source of her infection, sepsis. Will proceed to the operating room today for incision and drainage. I discussed this with the patient. I explained the procedure and that there would be a residual open wound following the drainage procedure. All questions were answered. She wishes to go ahead. (2) Non-cardiac chest pain: Code(s): R07.89 - Other chest pain Status: Acute (3) Hyperglycemia due to diabetes mellitus: Code(s): E11.65 - Type 2 diabetes mellitus with hyperglycemia Status: Acute (4) Severe dehydration: Code(s): E86.0 - Dehydration Status: Acute (5) Sepsis: Qualifiers: Sepsis type: sepsis due to unspecified organism Sepsis acute organ dysfunction status: with acute organ dysfunction Severe sepsis acute organ dysfunction type: acute renal failure Acute renal failure type: unspecified Severe sepsis shock status: without septic shock Qualified Code(s): A41.9 - Sepsis, unspecified organism; R65.20 - Severe sepsis without septic shock; N17.9 - Acute kidney failure, unspecified Code(s): A41.9 - Sepsis, unspecified organism Status: Acute History of Present Illness Consult details Consult date: 06/13/25 Reason for consult: other (Pain and swelling, tenderness upper gluteal crease) Requesting physician: Jen Beauchamp DO Narrative: Patient is a 50-year-old diabetic woman who came to the emergency room yesterday with nausea vomiting and chest pain. Chest pain turned out to be noncardiac in origin. There was some evidence of esophagitis on CT scan. She was found to have swelling and exquisite tenderness in the upper gluteal crease, suggestive of pilonidal abscess. [place] 56065. I was asked to see the patient in consultation regarding this abscess. She was felt to have sepsis and the nausea and vomiting likely the cause of her noncardiac chest pain. She has never had an abscess or boil in this area previously. Review of Systems Review of Systems: All systems reviewed & are unremarkable except as noted in HPI and below (HPI) PMFSH Past Medical History Medical History Granulomatous lung disease Hepatic steatosis Noted on imaging Coronary artery disease Nonobstructive coronary artery disease with less than 50% occlusion not requiring stenting on catheterization 04/2024 Takotsubo cardiomyopathy (05/05/24) Complicated by mural thrombus Sliding hiatal hernia Essential hypertension GERD (gastroesophageal reflux disease) Diabetes mellitus juardiance HLD (hyperlipidemia) Surgical History Surgical History History of cardiac catheterization (05/04/24) History of 2 sections History of tubal ligation Family History Family History Mother , age 56 Hypertension Diabetes mellitus End-stage renal disease on hemodialysis Sibling Diabetes mellitus End-stage renal disease on hemodialysis Son Pulmonary embolism, Onset Age: 26 Social History Social History Social History: The patient reports that she and her have been together for 14 years in a been for 1 year. She had a total of 6 children her oldest son of what sounds like a pulmonary embolism at age 26. She currently lives with her and her children ranging in age from 14 down to 3 years old. 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 She denies any history of tobacco use or alcohol use. She occasionally smokes marijuana. Code status: Full code Surrogate decision maker: Smoking status: Never smoker Alcohol intake: never Substance use: current Substance use type: marijuana Last use: 05/03/24 Do You Feel Safe in your Home?: Yes Lack of Transportation: No Lack of Food: Never True Current Housing: I Have Housing Concerned About Future Housing: No Difficulty Paying Gas/Electric Bills: No Difficulty Paying for Meds: No Currently Unemployed: No Education: Grade School Difficulty w/ Childcare or Family Care: No Spiritual care concerns: No Meds Home Medications and Allergies Home Medications ?Medication ?Instructions ?Recorded ?Confirmed ?Type aspirin 81 mg chewable tablet 81 mg PO DAILY@0800 #30 tabs 05/06/24 06/12/25 Rx (Children's Aspirin) blood sugar diagnostic ([facility] #1 pkg 05/06/24 06/12/25 Rx Verio test strips) blood-glucose meter (OneTouch #1 pkg 05/06/24 06/12/25 Rx Verio Flex Meter) empagliflozin 10 mg tablet 10 mg PO DAILY #30 tabs 05/06/24 06/12/25 Rx (Jardiance) furosemide 40 mg tablet 40 mg PO DAILY #30 tabs 05/06/24 06/12/25 Rx lancets 30 gauge (OneTouch Delica #1 pkg 05/06/24 06/12/25 Rx Plus Lancet) metformin 500 mg tablet 250 mg (1/2 x 500 mg) PO BIDWMEAL 05/06/24 06/12/25 Rx #60 tabs rosuvastatin 40 mg sprinkle capsule 40 mg PO DAILY #30 caps 05/06/24 06/12/25 Rx sacubitril 24 mg-valsartan 26 mg 1 tablet PO Q12HR #60 tabs 05/06/24 06/12/25 Rx tablet (Entresto) dulaglutide 0.75 mg/0.5 mL 0.75 mg subcut WEEKLY 06/12/25 06/12/25 History subcutaneous pen injector (Trulicity) Allergies Allergy/AdvReac Type Severity Reaction Status Date / Time No Known Allergies Allergy Verified 06/13/25 00:15 Vital Signs Vital Signs - 24 hr 06/12/25 15:39 06/12/25 18:38 06/12/25 18:39 Temperature 36.3 C L Pulse Rate 120 H 119 H 118 H Respiratory Rate 20 13 9 L Blood Pressure 153/84 H 170/114 H Pulse Oximetry 92 100 100 Oxygen Delivery Room Air 06/12/25 18:59 06/12/25 19:00 06/12/25 19:00 Temperature Pulse Rate 103 H 102 H Respiratory Rate 27 H Blood Pressure Pulse Oximetry 97 98 Oxygen Delivery Room Air 06/12/25 19:00 06/12/25 19:01 06/12/25 19:02 Temperature Pulse Rate 104 H 104 H 105 H Respiratory Rate 26 H 27 H 27 H Blood Pressure 183/106 H Pulse Oximetry 98 98 100 Oxygen Delivery 06/12/25 19:15 06/12/25 19:41 06/12/25 19:45 Temperature Pulse Rate 108 H 106 H 102 H Respiratory Rate 18 22 H 22 H Blood Pressure Pulse Oximetry 100 96 100 Oxygen Delivery 06/12/25 20:00 06/12/25 20:01 06/12/25 20:41 Temperature Pulse Rate 101 H 93 108 H Respiratory Rate 22 H 20 22 H Blood Pressure 165/95 H Pulse Oximetry 96 100 98 Oxygen Delivery 06/12/25 20:45 06/12/25 21:00 06/12/25 21:01 Temperature Pulse Rate 105 H 95 91 Respiratory Rate 20 22 H 19 Blood Pressure 157/92 H Pulse Oximetry 98 98 99 Oxygen Delivery 06/12/25 23:16 06/12/25 23:52 06/13/25 00:00 Temperature 36.7 C Pulse Rate 84 78 Respiratory Rate 17 20 Blood Pressure 142/76 H Pulse Oximetry 99 99 99 Oxygen Delivery Room Air 06/13/25 00:00 06/13/25 02:00 06/13/25 03:46 Temperature 36.4 C Pulse Rate 85 92 91 Respiratory Rate 16 Blood Pressure 142/70 H Pulse Oximetry 98 Oxygen Delivery 06/13/25 07:53 Temperature 36.9 C Pulse Rate 89 Respiratory Rate 16 Blood Pressure 140/76 Pulse Oximetry 99 Oxygen Delivery Exam Const: General: cooperative, no acute distress, alert, awake, tired appearing and uncomfortable Nutritional Appearance: overweight Orientation/consciousness: patient oriented x3 HENMT: Head: normocephalic and atraumatic Mouth: Yes Normal oral and palatal mucosa present Eyes: Conjunctivae: conjunctivae normal Pupils: Equal, round and reactive pupils present EOM: EOMs intact bilaterally Neck: Neck: normal visual inspection, no lymphadenopathy and nontender Resp: Effort & Inspection: normal respiratory effort Auscultation: clear to auscultation bilaterally Cardio: Rate: regular rate Rhythm: regular rhythm Heart sounds: no gallops, no murmurs and no rubs GI: Inspection: non-distended GI Palp: Yes Soft to palpation, No Tenderness to palpation present (GI), No Hepatomegaly present and No Splenomegaly present Rectal Exam: abscess (Upper gluteal crease, right of midline) and tenderness Skin: Lesions: no lesions Rashes: no rashes Neuro: General: no focal motor deficits and CN's II-XI intact bilaterally Cranial nerves: Yes Equal, round and reactive pupils present, Yes Bilaterally intact EOM present, Yes facial symmetry and Yes Midline tongue present Speech: normal speech Motor exam (neuro): 5/5 motor strength present throughout and Motor abnormalities not present Extrem: General: no clubbing, cyanosis or edema and edema Psych: Affect: normal affect Thought process: Normal thought process present Insight: Good insight present (Psych) Results Labs 06/13/25 02:09 06/13/25 02:09 Labs: Abnormal lab results 06/12/25 06/12/25 06/12/25 Range/Units 18:48 21:53 23:02 WBC 19.5 H (4.5-10.0) K/mm3 Plt Count 431 H D (150-375) k/mm3 Neut % (Auto) 81.9 H (45.5-73.1) % Lymph % (Auto) 9.5 L (18.3-44.2) % [place] % (Auto) (2.6-8.5) % [place] # (Auto) 1.5 H (0.1-0.6) K/mm3 Abs Immat Gran (auto) 0.08 H (0.00-0.031) K/mm3 Absolute Neuts (auto) 16.0 H (1.3-6.7) K/mm3 VBG pH 7.448 H* (7.300-7.400) VBG pCO2 40.9 L (42.0-48.0) mmHg VBG pO2 142.9 H (35.0-45.0) mmHg Sodium 134 L (137-145) mmol/L Chloride 86 L (98-107) mmol/L Carbon Dioxide 32 H (22-30) mmol/L Anion Gap 16 H (4-12) mmol/L BUN 45 H D (7-17) mg/dL Creatinine 1.68 H (0.7-1.0) mg/dL Estimated GFR 32 L (59 - ) Glucose 171 H (65-110) mg/dL POC Capillary Glucose (65-105) mg/dl Hemoglobin A1c (<5.7) % Alkaline Phosphatase 127 H (38-126) U/L NT-Pro-B Natriuret Pep 479 H (19.9-100) pg/mL Total Protein 10.2 H (6.3-8.2) g/dL Beta-Hydroxybutyrate/Acetoacetate 2.99 H (0.02-0.27) mmol/L Ur Specific [place] (1.001-1.035) Urine Glucose (UA) (Negative) mg/dL Urine Ketones (Negative) mg/dL Urine WBC (0-3) /hpf 06/13/25 06/13/25 06/13/25 Range/Units 02:09 07:23 11:45 WBC 16.6 H (4.5-10.0) K/mm3 Plt Count 378 H (150-375) k/mm3 Neut % (Auto) 78.6 H (45.5-73.1) % Lymph % (Auto) 12.0 L (18.3-44.2) % [place] % (Auto) 8.7 H (2.6-8.5) % [place] # (Auto) 1.4 H (0.1-0.6) K/mm3 Abs Immat Gran (auto) 0.05 H (0.00-0.031) K/mm3 Absolute Neuts (auto) 13.0 H (1.3-6.7) K/mm3 VBG pH (7.300-7.400) VBG pCO2 (42.0-48.0) mmHg VBG pO2 (35.0-45.0) mmHg Sodium 131 L (137-145) mmol/L Chloride 90 L (98-107) mmol/L Carbon Dioxide (22-30) mmol/L Anion Gap 13 H (4-12) mmol/L BUN 43 H (7-17) mg/dL Creatinine 1.39 H (0.7-1.0) mg/dL Estimated GFR 40 L (59 - ) Glucose 162 H (65-110) mg/dL POC Capillary Glucose 121 H (65-105) mg/dl Hemoglobin A1c 6.0 H (<5.7) % Alkaline Phosphatase (38-126) U/L NT-Pro-B Natriuret Pep (19.9-100) pg/mL Total Protein 9.1 H (6.3-8.2) g/dL Beta-Hydroxybutyrate/Acetoacetate (0.02-0.27) mmol/L Ur Specific [place] > 1.045 H (1.001-1.035) Urine Glucose (UA) 3+ H (Negative) mg/dL Urine Ketones 1+ H (Negative) mg/dL Urine WBC 11-20 H (0-3) /hpf Diabetes panel 06/12/25 06/13/25 Range/Units 18:48 02:09 Sodium 134 L 131 L (137-145) mmol/L Potassium 3.8 3.8 (3.4-5.0) mmol/L Chloride 86 L 90 L (98-107) mmol/L Carbon Dioxide 32 H 28 (22-30) mmol/L BUN 45 H D 43 H (7-17) mg/dL Creatinine 1.68 H 1.39 H (0.7-1.0) mg/dL Glucose 171 H 162 H (65-110) mg/dL Hemoglobin A1c 6.0 H (<5.7) % Calcium 10.0 9.5 (8.4-10.2) mg/dL AST 31 27 (14-36) U/L ALT 32 28 (6-35) U/L Alkaline Phosphatase 127 H 117 (38-126) U/L Total Protein 10.2 H 9.1 H (6.3-8.2) g/dL Albumin 4.5 4.2 (3.5-5.1) g/dL Calcium panel 06/12/25 06/13/25 Range/Units 18:48 02:09 Calcium 10.0 9.5 (8.4-10.2) mg/dL Albumin 4.5 4.2 (3.5-5.1) g/dL Pituitary panel 06/12/25 06/13/25 Range/Units 18:48 02:09 Sodium 134 L 131 L (137-145) mmol/L Potassium 3.8 3.8 (3.4-5.0) mmol/L Chloride 86 L 90 L (98-107) mmol/L Carbon Dioxide 32 H 28 (22-30) mmol/L BUN 45 H D 43 H (7-17) mg/dL Creatinine 1.68 H 1.39 H (0.7-1.0) mg/dL Glucose 171 H 162 H (65-110) mg/dL Calcium 10.0 9.5 (8.4-10.2) mg/dL Adrenal panel 06/12/25 06/13/25 Range/Units 18:48 02:09 Sodium 134 L 131 L (137-145) mmol/L Potassium 3.8 3.8 (3.4-5.0) mmol/L Chloride 86 L 90 L (98-107) mmol/L Carbon Dioxide 32 H 28 (22-30) mmol/L BUN 45 H D 43 H (7-17) mg/dL Creatinine 1.68 H 1.39 H (0.7-1.0) mg/dL Glucose 171 H 162 H (65-110) mg/dL Calcium 10.0 9.5 (8.4-10.2) mg/dL Total Bilirubin 0.8 0.7 (0.2-1.3) mg/dL AST 31 27 (14-36) U/L ALT 32 28 (6-35) U/L Alkaline Phosphatase 127 H 117 (38-126) U/L Total Protein 10.2 H 9.1 H (6.3-8.2) g/dL Albumin 4.5 4.2 (3.5-5.1) g/dL All other labs normal.
--- NOTE | 2025-06-13 13:41 | WPDHPUPDATE1 ---
History and Physical Update Update Date/Time: 06/13/25 13:41 History and Physical has been reviewed, including an updated exam of the patient. There are NO changes in the patient's condition. Risks, benefits, and alternatives have been discussed and questions answered. Patient agrees to proceed with procedure.
--- NOTE | 2025-06-13 14:37 | P.PNAN_ITS ---
Anes - Initial Pre Proc Eval Procedure: Operation Date: 06/13/25 14:00 Proposed Procedures p I&D Gia-Rectal Abscess - Isaiah Reyes MD Date/Time: 06/13/25 14:37 Surgeon: Jen Beauchamp DO Pre Op Diagnosis: CHEST PAIN, ESOPHAGITIS, KVNG Patient Data Age: 50 Gender: F Height: 1.63 m Weight: 94.3 kg Last Vital Signs Temp 98.4 F 06/13/25 07:53 Pulse 89 06/13/25 07:53 Resp 16 06/13/25 07:53 BP 140/76 06/13/25 07:53 Pulse Ox 99 06/13/25 07:53 O2 Del Method Room Air 06/13/25 00:00 Allergies Allergy/AdvReac Type Severity Reaction Status Date / Time No Known Allergies Allergy Verified 06/13/25 00:15 Home Medications ?Medication ?Instructions ?Recorded ?Confirmed ?Type aspirin 81 mg chewable tablet 81 mg PO DAILY@0800 #30 tabs 05/06/24 06/12/25 Rx (Children's Aspirin) blood sugar diagnostic (OneTouch #1 [facility] 05/06/2406/12 Rx Verio test strips) blood-glucose meter (OneTouch #1 pkg 05/06/24 06/12/25 Rx Verio Flex Meter) empagliflozin 10 mg tablet 10 mg PO DAILY #30 tabs 06/12/25 Rx (Jardiance) furosemide 40 mg tablet 40 mg PO DAILY #30 tabs 04/1506/12/25 Rx lancets 30 gauge (OneTouch Delica #1 pkg 05/06/2405/16 Rx Plus Lancet) metformin 500 mg tablet 250 mg (1/2 x 500 mg) PO BID WMEAL 05/06/24 06/12/25 Rx #60 tabs rosuvastatin 40 mg sprinkle capsule 40 mg PO DAILY #30 caps 05/06/24 06/12/25 Rx sacubitril 24 mg-valsartan 26 mg 1 tablet PO Q12HR #60 tabs 05/06/24 06/12/25 Rx tablet (Entresto) dulaglutide 0.75 mg/0.5 mL 0.75 mg subcut WEEKLY 08/29 /25 08/29/25 History subcutaneous pen injector (Trulicity) Laboratory Tests 06/12/25 06/12/25 06/12/25 18:48 18:50 21:53 WBC 19.5 H K/mm3 (4.5-10.0) RBC 4.74 M/mm3 (4.2-5.4) Hgb 14.4 g/dL (12.0-15.0) Hct 43.1 % (37.0-47.0) MCV 90.9 fl (80-100) MCH 30.4 pg (26-34) MCHC 33.4 g/dl (32-36) RDW 12.2 % (11.5-14.5) Plt Count 431 H D k/mm3 (150-375) MPV 9.5 fl (7.4-10.4) Immature Gran % (Auto) 0.4 % (0-0.5) Neut % (Auto) 81.9 H % (45.5-73.1) Lymph % (Auto) 9.5 L % (18.3-44.2) [place] % (Auto) 7.9 % (2.6-8.5) Eos % (Auto) 0.0 % (0-4.4) Baso % (Auto) 0.3 % (0.2-1.2) Lymph # (Auto) 1.86 K/mm3 (0.9-3.2) [place] # (Auto) 1.5 H K/mm3 (0.1-0.6) Eos # (Auto) 0.0 K/mm3 (0-0.3) Baso # (Auto) 0.1 K/mm3 (0.0-0.1) Abs Immat Gran (auto) 0.08 H K/mm3 (0.00-0.031) Absolute Neuts (auto) 16.0 H K/mm3 (1.3-6.7) Absolute Nucleated RBC 0.000 K/mm3 (0.0-0.012) Nucleated RBC % 0.0 % (0.0-0.2) PT 14.7 Seconds (11.1-14.7) INR 1.1 APTT 29.3 Seconds (22.3-36.8) VBG pH VBG pCO2 VBG pO2 VBG HCO3 O2 Delivery Device O2 Liters/Min FiO2 Sodium 134 L mmol/L (137-145) Potassium 3.8 mmol/L (3.4-5.0) Chloride 86 L mmol/L (98-107) Carbon Dioxide 32 H mmol/L (22-30) Anion Gap 16 H mmol/L (4-12) BUN 45 H D mg/dL (7-17) Creatinine 1.68 H mg/dL (0.7-1.0) Estim Creat Clear Calc 40 ml/min Estimated GFR 32 L (59 - ) Glucose 171 H mg/dL (65-110) POC Capillary Glucose Hemoglobin A1c Lactic Acid Calcium 10.0 mg/dL (8.4-10.2) Magnesium Total Bilirubin 0.8 mg/dL (0.2-1.3) AST 31 U/L (14-36) ALT 32 U/L (6-35) Alkaline Phosphatase 127 H U/L (38-126) Troponin I < 0.012 ng/mL < 0.012 ng/mL (0.000-0.034) (0.000-0.034) NT-Pro-B Natriuret Pep 479 H pg/mL (19.9-100) Total Protein 10.2 H g/dL (6.3-8.2) Albumin 4.5 g/dL (3.5-5.1) Lipase 42 U/L (23-300) Beta-Hydroxybutyrate/Acetoacetate 2.99 H mmol/L (0.02-0.27) Procalcitonin 0.3 ng/mL Urine Color Urine Appearance Urine pH Ur Specific [place] Urine Protein Urine Glucose (UA) Urine Ketones Ur Blood (Man) Urine Nitrate Urine Bilirubin Urine Urobilinogen Add Ur Microanalysis Leukocyte Esterase Rfl Urine RBC Urine WBC Ur Squamous Epith Cells Urine Bacteria Urine Casts 06/12/25 06/12/25 06/13/25 23:02 23:03 02:09 WBC 16.6 H K/mm3 (4.5-10.0) RBC 4.27 M/mm3 (4.2-5.4) Hgb 13.1 g/dL (12.0-15.0) Hct 39.3 % (37.0-47.0) MCV 92.0 fl (80-100) MCH 30.7 pg (26-34) MCHC 33.3 g/dl (32-36) RDW 12.3 % (11.5-14.5) Plt Count 378 H k/mm3 (150-375) MPV 9.5 fl (7.4-10.4) Immature Gran % (Auto) 0.3 % (0-0.5) Neut % (Auto) 78.6 H % (45.5-73.1) Lymph % (Auto) 12.0 L % (18.3-44.2) [place] % (Auto) 8.7 H % (2.6-8.5) Eos % (Auto) 0.1 % (0-4.4) Baso % (Auto) 0.3 % (0.2-1.2) Lymph # (Auto) 1.99 K/mm3 (0.9-3.2) [place] # (Auto) 1.4 H K/mm3 (0.1-0.6) Eos # (Auto) 0.0 K/mm3 (0-0.3) Baso # (Auto) 0.1 K/mm3 (0.0-0.1) Abs Immat Gran (auto) 0.05 H K/mm3 (0.00-0.031) Absolute Neuts (auto) 13.0 H K/mm3 (1.3-6.7) Absolute Nucleated RBC 0.000 K/mm3 (0.0-0.012) Nucleated RBC % 0.0 % (0.0-0.2) PT INR APTT VBG pH 7.448 H* (7.300-7.400) VBG pCO2 40.9 L mmHg (42.0-48.0) VBG pO2 142.9 H mmHg (35.0-45.0) VBG HCO3 27.7 mEq/l (24.0-30.0) O2 Delivery Device Not Reportable O2 Liters/Min Not Reportable FiO2 21 % Sodium 131 L mmol/L (137-145) Potassium 3.8 mmol/L (3.4-5.0) Chloride 90 L mmol/L (98-107) Carbon Dioxide 28 mmol/L (22-30) Anion Gap 13 H mmol/L (4-12) BUN 43 H mg/dL (7-17) Creatinine 1.39 H mg/dL (0.7-1.0) Estim Creat Clear Calc 49 ml/min Estimated GFR 40 L (59 - ) Glucose 162 H mg/dL (65-110) POC Capillary Glucose Hemoglobin A1c 6.0 H % (<5.7) Lactic Acid 1.5 mmol/L (0.7-2.0) Calcium 9.5 mg/dL (8.4-10.2) Magnesium 2.3 mg/dL (1.6-2.3) Total Bilirubin 0.7 mg/dL (0.2-1.3) AST 27 U/L (14-36) ALT 28 U/L (6-35) Alkaline Phosphatase 117 U/L (38-126) Troponin I < 0.012 ng/mL (0.000-0.034) NT-Pro-B Natriuret Pep Total Protein 9.1 H g/dL (6.3-8.2) Albumin 4.2 g/dL (3.5-5.1) Lipase Beta-Hydroxybutyrate/Acetoacetate Procalcitonin Urine Color Urine Appearance Urine pH Ur Specific [place] Urine Protein Urine Glucose (UA) Urine Ketones Ur Blood (Man) Urine Nitrate Urine Bilirubin Urine Urobilinogen Add Ur Microanalysis Leukocyte Esterase Rfl Urine RBC Urine WBC Ur Squamous Epith Cells Urine Bacteria Urine Casts 06/13/25 06/13/25 07:23 11:45 WBC RBC Hgb Hct MCV MCH MCHC RDW Plt Count MPV Immature Gran % (Auto) Neut % (Auto) Lymph % (Auto) [place] % (Auto) Eos % (Auto) Baso % (Auto) Lymph # (Auto) [place] # (Auto) Eos # (Auto) Baso # (Auto) Abs Immat Gran (auto) Absolute Neuts (auto) Absolute Nucleated RBC Nucleated RBC % PT INR APTT VBG pH VBG pCO2 VBG pO2 VBG HCO3 O2 Delivery Device O2 Liters/Min FiO2 Sodium Potassium Chloride Carbon Dioxide Anion Gap BUN Creatinine Estim Creat Clear Calc Estimated GFR Glucose POC Capillary Glucose 121 H mg/dl (65-105) Hemoglobin A1c Lactic Acid Calcium Magnesium Total Bilirubin AST ALT Alkaline Phosphatase Troponin I NT-Pro-B Natriuret Pep Total Protein Albumin Lipase Beta-Hydroxybutyrate/Acetoacetate Procalcitonin Urine Color Yellow (Yellow) Urine Appearance Clear (Clear) Urine pH 5.0 (5.0-9.0) Ur Specific [place] > 1.045 H (1.001-1.035) Urine Protein Trace mg/dL (Negative) Urine Glucose (UA) 3+ H mg/dL (Negative) Urine Ketones 1+ H mg/dL (Negative) Ur Blood (Man) Negative (Negative) Urine Nitrate Negative (Negative) Urine Bilirubin Negative (Negative) Urine Urobilinogen 1.0 mg/dL (<2.0) Add Ur Microanalysis Reviewed Leukocyte Esterase Rfl Negative AUDREY/UL (Negative) Urine RBC 0-2 /hpf (0-2) Urine WBC 11-20 H /hpf (0-3) Ur Squamous Epith Cells Occasional /hpf (Few) Urine Bacteria None seen /hpf Urine Casts 0-2 Patient hx anesthesia problems: none Family hx anesthesia problems: none Results Review: All pre-operative results and documents have been reviewed as part of the pre- operative evaluation. [facility] Past Medical History Medical History Granulomatous lung disease Hepatic steatosis Noted on imaging Coronary artery disease Nonobstructive coronary artery disease with less than 50% occlusion not r equiring stenting on catheterization 04/2024 Takotsubo cardiomyopathy (05/05/24) Complicated by mural thrombus Sliding hiatal hernia Essential hypertension GERD (gastroesophageal reflux disease) Diabetes mellitus juardiance HLD (hyperlipidemia) Surgical History Surgical History History of cardiac catheterization (05/04/24) History of 2 sections History of tubal ligation Family History Family History Mother , age 56 Hypertension Diabetes mellitus End-stage renal disease on hemodialysis Sibling Diabetes mellitus End-stage renal disease on hemodialysis Son Pulmonary embolism, Onset Age: 26 Social History Social History Social History: The patient reports that she and her have been together for 14 years in a been for 1 year. She had a total of 6 children her oldest son of what sounds like a pulmonary embolism at age 26. She currently lives with her and her children ranging in age from 14 down to 3 years old. 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 She denies any history of tobacco use or alcohol use. She occasionally smokes marijuana. Code status: Full code Surrogate decision maker: Smoking status: Never smoker Alcohol intake: never Substance use: current Substance use type: marijuana Last use: 05/03/24 Do You Feel Safe in your Home?: Yes Lack of Transportation: No Lack of Food: Never True Current Housing: I Have Housing Concerned About Future Housing: No Difficulty Paying Gas/Electric Bills: No Difficulty Paying for Meds: No Currently Unemployed: No Education: Grade School Difficulty w/ Childcare or Family Care: No Spiritual care concerns: No Anes - Eval Final PreProcedure Day of Procedure 06/13/25 14:37 Patient weight: obese Lungs: normal air movement Airway: Mallampati scale class II Neurological: alert and oriented Last oral intake: >/= 8 hours ASA classification: III Emergent: yes Anesthetic plan: proceed Anesthesia type and monitoring: general ETT and standard monitoring Results Review: All pre-operative results and documents have been reviewed as part of the pre- operative evaluation. Informed Consent: The patient's anesthetic plan and its attendant risks and benefits were discussed with the patient/family/POA. Questions were solicited and answers provided to the satisfaction of the patient/family/POA.
--- NOTE | 2025-06-13 15:18 | W.PM.PROC2 ---
Procedure Note - Detailed Date of Procedure 06/13/25 Pre-op Diagnosis Presacral abscess Post-op Diagnosis Same Procedure Performed Incision and drainage of presacral abscess Surgeon Isaiah Reyes MD Sink Cutter Sarah Wilks [facility] Anesthesia General Indications Patient presented with nausea and vomiting and leukocytosis. She was noted on exam to have a very tender swollen area in the upper gluteal crease suggestive of a pilonidal cyst with abscess. She is felt to have sepsis and this is the likely source. She is taken to surgery now for incision and drainage. Findings There were 2 abscesses, the main abscess was just to the right of midline and closer to the rectum. It was in the sacrococcygeal area. I did not notice any hair in the abscess. There was quite a bit of purulent fluid. The 2nd abscess was more cephalad and also just to the right of midline. It also had some purulent fluid but did was much smaller. The 2 abscesses did not track to 1 another nor did they appear to track elsewhere. Description of Procedure Patient was taken to surgery and induced into general anesthesia. She was then placed in prone position. The buttocks were taped apart. Prep and drape was carried out. There was a pinhole opening in the larger abscess through which some purulent fluid was already emanating. Incision was made over this fluctuant area. Abundant purulent fluid came forth. Culture for aerobes anaerobes and Gram stain was performed. We suctioned out the purulent fluid. There was some tracking farther to the right but only a cm. We evacuated all residual purulent fluid. The wound did track further cephalad and I opened the incision about 1 cm farther cephalad. I also then noted some tracking to the left, toward the midline. I opened this portion of the overlying skin as well. Now all the abscess was easily accessible for drainage and visualization. The smaller area noted cephalad to the main abscess was then punctured with the scalpel. Purulent fluid was noted. I made a cruciate incision and trim some of the skin edges. This appeared to be very superficial, not extending deeper than the subcutaneous. No cultures of this abscess were taken. Both will wounds were packed with half-inch iodoform Nu gauze. Bulky fluff dressing was placed. Medipore tape was used. The patient was then returned to a supine position, awakened and extubated. She transferred to recovery in good condition. Sponge needle counts were correct x2. Estimated Blood Loss -5 Urine Output 300 Drains No Packing Yes (1/2 inch iodoform Nu Gauze) Pathology Other (Cultures only-aerobes, anaerobes, Gram stain) Complications None Condition Stable Disposition PACU [facility] Billing Surgery - Charge Forward: Surgery Billing (Incision and drainage complicated sacrococcygeal abscess)
[2025-06-13] MEDS: LACTATED RINGERS 1,000 ML 30 ML IV CONT ×2 (15:27→16:01)
[2025-06-13] MEDS: fentaNYL CITRATE INJ (*CRX) 100 MCG/2 ML VIAL 25 MCG IV PUSH ×6 (15:41→16:28)
--- NOTE | 2025-06-13 16:58 | PC.NURSE ---
This patient, Altaf Dejesus, was transferred to [ [facility]] on 06/13/25 at 1658. Personal belongings sent with patient. Report given to [ Sintia]. Appropriate documentation sent with patient.
[2025-06-13] MEDS: MORPHINE SULFATE (*CRX) 4 MG/ML INJ IV PUSH ×2 (17:26→22:09)
[2025-06-13] MEDS: SUCRALFATE 1 GM TABLET PO ×2 (17:29→22:05)
[2025-06-13] MEDS: oxyCODONE HCL (*CRX) 2.5 MG TAB IR PO (18:36)
[2025-06-13] MEDS: LACTATED RINGERS 1,000 ML 80 ML IV CONT (18:36)
[2025-06-13] MEDS: PANTOPRAZOLE 40 MG TABLET PO (22:05)
[2025-06-13] MEDS: SENNA/DOCUSATE SODIUM TABLET 2 TAB PO (22:05)
[2025-06-14] MEDS: PIPERACILLIN/TAZOBACTAM SOD 3.375 GM in SODIUM CHLORIDE 0.9% IV 50 ML 100 ML IVPB ×5 (00:17→23:09)
[2025-06-14 02:34] VITALS: BP 108/58; PULSE 90; RESP 20; TEMP 37.1; O2SAT 99
[2025-06-14] MEDS: oxyCODONE HCL (*CRX) 5 MG TAB IR PO ×3 (03:26→19:35)
[2025-06-14 05:54] LABS: Hematocrit 34.2 % (37.0-47.0); Hemoglobin 10.9 g/dL (12.0-15.0); Mean Corpuscular HGB Conc 31.9 g/dl (32-36); Mean Corpuscular Hemoglobin 30.8 pg (26-34); Mean Corpuscular Volume 96.6 fl (80-100); Platelet Count Result 289 k/mm3 (150-375); Red Blood Count 3.54 M/mm3 (4.2-5.4); White Blood Count 8.8 K/mm3 (4.5-10.0)
[2025-06-14 06:03] VITALS: BP 109/46; PULSE 88; RESP 18; TEMP 36.8; O2SAT 93
[2025-06-14 06:27] LABS: Alanine Aminotransferase 19 U/L (6-35); Albumin Level 3.1 g/dL (3.5-5.1); Alkaline Phosphatase 84 U/L (38-126); Anion Gap 4 mmol/L (4-12); Aspartate Amino Transferase 24 U/L (14-36); Bilirubin,Total 0.7 mg/dL (0.2-1.3); Blood Urea Nitrogen 21 mg/dL (7-17); Calcium 7.9 mg/dL (8.4-10.2); Carbon Dioxide 29 mmol/L (22-30); Chloride 102 mmol/L (98-107); Estimated CRCL calculation 71 ml/min; Estimated Glomerular Filt Rate > 60; Glucose 106 mg/dL (65-110); Potassium 4.1 mmol/L (3.4-5.0); Sodium 135 mmol/L (137-145); Total Protein 6.7 g/dL (6.3-8.2)
[2025-06-14] MEDS: SUCRALFATE 1 GM TABLET PO ×4 (06:35→19:36)
[2025-06-14] MEDS: PANTOPRAZOLE 40 MG TABLET PO ×2 (08:25→19:36)
[2025-06-14] MEDS: LACTATED RINGERS 1,000 ML 80 ML IV CONT ×2 (08:25→19:41)
[2025-06-14] MEDS: ENOXAPARIN 40 MG/0.4 ML SYRINGE SUB-Q (08:26)
[2025-06-14] MEDS: ASPIRIN 81 MG CHEWABLE TABLET PO (08:26)
--- NOTE | 2025-06-14 09:44 | PM.IMPN ---
Progress Note: A&P Assessment and Plan (1) Infected pilonidal cyst: Code(s): L05.91 - Pilonidal cyst without abscess Status: Acute Assessment and Plan: 0 06/13:Patient underwent incision and drainage of presacral abscess . As per surgery evidence of two abscess, main abscess was just to the right of midline and closer to the rectum and 2nd abscess was more cephalad and also just to the right of midline Continue Zosyn Lactic acid 1.5 Received fluids-3L Maintenance fluids at 150 mL an hour. Monitor vitals and culture Surgery on board (2) Sepsis: Qualifiers: Acute renal failure type: unspecified Sepsis acute organ dysfunction status: with acute organ dysfunction Sepsis type: sepsis due to unspecified organism Severe sepsis acute organ dysfunction type: acute renal failure Severe sepsis shock status: without septic shock Qualified Code(s): A41.9 - Sepsis, unspecified organism; R65.20 - Severe sepsis without septic shock; N17.9 - Acute kidney failure, unspecified Code(s): A41.9 - Sepsis, unspecified organism Status: Acute Assessment and Plan: As above (3) KVNG (acute kidney injury): Code(s): N17.9 - Acute kidney failure, unspecified Status: Acute Assessment and Plan: Due to dehydration Avoid nephrotoxic drugs Trend creatinine and BUN (4) Severe dehydration: Code(s): E86.0 - Dehydration Status: Acute Assessment and Plan: As above (5) Esophagitis: Code(s): K20.90 - Esophagitis, unspecified without bleeding Status: Acute Assessment and Plan: Continue PPI (6) Sliding hiatal hernia: Code(s): K44.9 - Diaphragmatic hernia without obstruction or gangrene Status: Acute Assessment and Plan: Managed as OP (7) Non-cardiac chest pain: Code(s): R07.89 - Other chest pain Status: Acute Assessment and Plan: Due to esophagitis Negative troponin History of Takotsubo Cardiomyopathy Previous history of anticoagulation was discontinued by her photogrammetric stereo 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 SSI Hypoglycemia protocol Elevated beta hydroxybutyrate which is more likely due to dehydration and starvation ketosis and less likely due to DKA (9) Essential hypertension: Code(s): I10 - Essential (primary) hypertension Status: Acute Assessment and Plan: Hold HTN medication Plan Code status:Full code DVT Prophylaxis: Lovenox 40mg Sub Q Subjective Date/time seen: 06/14/25 09:44 Interval history: Patient underwent incision and drainage of presacral abscess yesterday. As per surgery evidence of two abscess, main abscess was just to the right of midline and closer to the rectum and 2nd abscess was more cephalad and also just to the right of midline Review of Systems Review of Systems: 12 systems were reviewed with pertinent positives and negatives per HPI. Except as documented in the HPI, all other systems were reviewed and are negative. She denies dysuria or hematuria. She denies hematochezia, melena or changes in bowel habits. She does snore but denies any daytime fatigue or somnolence. Exam Narrative: 94.3 kg BMI 35.7 Const: Other: Acutely ill-appearing, obese, appears stated age HENMT: Other: Mucous membranes are dry, no oral pharyngeal erythema, fair dentition Eyes: Other: Pupils are equal and reactive, no scleral icterus Neck: Other: Large neck circumference, mild anterior cervical lymphadenopathy on the left Resp: Other: Mild tachypnea, no increased work of breathing, lungs are clear to auscultation bilaterally anterior and posterior salmeron Cardio: Other: Regular rate, regular rhythm, 2+ bilateral radial pedal pulses, no JVD, no murmur GI: Other: Soft, nontender, normoactive bowel sounds, no organomegaly Back/Spine/Pelvis: Other: Mild thoracic kyphosis Skin: Other: Warm to touch,, non jaundice, indurated acutely tender erythematous fluctuant area of abscess right upper buttock within the crease within another smaller lesion a few inches superior that is not acutely tender, the larger of the lesion does express purulent-appearing material that has a foul odor Neuro: Other: Alert oriented x4, speech is clear, no facial asymmetry, no localizing neurologic deficits noted during the course of conversation Extrem: Other: No clubbing, cyanosis or edema, no foot wounds, moves all extremities equally Psych: Other: Pleasant and cooperative but anxious, poor insight Objective Data Vital Signs Vital Signs: Vital Signs - 24 hr 06/13/25 15:27 06/13/25 15:40 06/13/25 15:55 Temperature 97.7 F 97.5 F L Pulse Rate 100 89 85 Respiratory Rate 18 22 H 16 Blood Pressure 128/73 128/57 L 131/63 Pulse Oximetry 100 100 100 Oxygen Delivery Simple Face Mask Simple Face Mask Simple Face Mask Oxygen Flow Rate 8 10 10 06/13/25 16:10 06/13/25 16:25 06/13/25 17:00 Temperature 98.4 F Pulse Rate 87 82 85 Respiratory Rate 16 14 18 Blood Pressure 138/69 143/67 H 141/78 H Pulse Oximetry 99 98 100 Oxygen Delivery Room Air Room Air Oxygen Flow Rate 06/13/25 17:15 06/13/25 17:30 06/13/25 18:30 Temperature 98.4 F 98.3 F 98.2 F Pulse Rate 82 90 99 Respiratory Rate 18 18 20 Blood Pressure 133/89 143/84 H 152/87 H Pulse Oximetry 100 98 97 Oxygen Delivery Oxygen Flow Rate 06/13/25 20:00 06/13/25 21:19 06/13/25 23:25 Temperature 98.8 F 98.7 F Pulse Rate 102 H 88 Respiratory Rate 18 18 Blood Pressure 123/65 132/65 Pulse Oximetry 98 97 Oxygen Delivery Room Air Oxygen Flow Rate 06/14/25 02:34 06/14/25 06:03 Temperature 98.8 F 98.2 F Pulse Rate 90 88 Respiratory Rate 20 18 Blood Pressure 108/58 L 109/46 L Pulse Oximetry 99 93 Oxygen Delivery Oxygen Flow Rate Intake/Output Intake/Output: Intake & Output 06/11/25 06/12/25 06/13/25 06/14/25 23:59 23:59 23:59 23:59 Intake Total 3140 1170 Output Total 600 Balance 2540 1170 Meds/Results Medications: Active Medications Generic Name Dose Route Start Last Admin Trade Name Freq PRN Reason Stop Dose Admin Acetaminophen 650 mg 06/13/25 03:52 Acetaminophen 325 Mg Tablet PO Q4H PRN Mild Pain (1-3) or Fever Aspirin 81 mg 06/14/25 08:00 06/14/25 08:26 Aspirin 81 Mg Chewable Tablet PO 81 mg DAILY@0800 NASREEN Administration Dextrose 12.5 gm 06/13/25 04:01 Dextrose 50% 25 Gm/50 Ml Syringe IV PUSH PRN PRN Hypoglycemia Protocol Enoxaparin Sodium 40 mg 06/13/25 09:00 06/14/25 08:26 Enoxaparin 40 Mg/0.4 Ml Syringe SUB-Q 40 mg DAILY NASREEN Administration Glucagon 1 mg 06/13/25 04:01 Glucagon For Inj 1 Mg Vial IM PRN PRN Hypoglycemia Protocol Glucose 15 gm 06/13/25 04:01 Glucose Oral Gel 15 Gm Of Glucse In 37.5 Gm Tube PO PRN PRN Hypoglycemia Protocol Piperacillin Sod/Tazobactam 50 mls @ 100 mls/hr 06/13/25 02:00 06/14/25 06:35 Sod 3.375 gm/ Sodium Chloride IVPB 100 mls/hr Q6HR NASREEN Administration Dextrose 1,000 mls @ 100 mls/hr 06/13/25 04:01 Dextrose 5% 1,000 Ml IVPB PRN PRN Hypoglycemia Protocol Lactated Ringer's 1,000 mls @ 80 mls/hr 06/13/25 16:49 06/14/25 08:25 Lr - Lactated Ringers Iv IV CONT 80 mls/hr .[id number] NASREEN Administration Ibuprofen 800 mg in 200 mls @ 400 mls/hr 06/13/25 16:49 Caldolor 800 Mg/200 Ml IVPB Q6H PRN Breakthrough Pain Rated 1-3 or NPO Insulin Aspart 3 - 6 units 06/13/25 08:00 06/14/25 08:26 Insulin Aspart (*Bkc) 100 Units/Ml SUB-Q Not Given TIDWM NASREEN Protocol Morphine Sulfate 2 mg 06/13/25 16:49 Morphine Sulfate (*Crx) 2 Mg/Ml Inj IV PUSH Q2H PRN Breakthrough Pain Rated 4-6 or NPO Morphine Sulfate 4 mg 06/13/25 16:49 06/13/25 22:09 Morphine Sulfate (*Crx) 4 Mg/Ml Inj IV PUSH 4 mg Q2H PRN Administration Breakthrough Pain Rated 7-10 or NPO Naloxone HCl 0.1 mg 06/13/25 16:49 Naloxone Hcl 0.4 Mg/Ml Vial IV PUSH Q2M PRN Opiate Reversal Ondansetron HCl 4 mg 06/12/25 22:45 Ondansetron Inj 4 Mg/2 Ml Vial IV PUSH Q4H PRN Nausea And Vomiting Oxycodone HCl 2.5 mg 06/13/25 16:49 06/13/25 18:36 Oxycodone Hcl (*Crx) 2.5 Mg Tab Ir PO 2.5 mg Q4H PRN Administration Pain Rated 4-6 Oxycodone HCl 5 mg 06/13/25 16:49 06/14/25 03:26 Oxycodone Hcl (*Crx) 5 Mg Tab Ir PO 5 mg Q4H PRN Administration Pain Rated 7-10 Pantoprazole Sodium 40 mg 06/13/25 21:00 06/14/25 08:25 Pantoprazole 40 Mg Tablet PO 40 mg Q12HR NASREEN Administration Polyethylene Glycol 17 gm 06/14/25 09:00 06/14/25 08:26 Polyethylene Glycol 3350 17 Gm Powd.Pack PO 17 gm QAM NASREEN Administration Senna/Docusate Sodium 2 tab 06/13/25 21:00 06/13/25 22:05 Senna/Docusate Sodium Tablet PO 2 tab HS NASREEN Administration Sucralfate 1 gm 06/13/25 06:30 06/14/25 06:35 Sucralfate 1 Gm Tablet PO 1 gm ACHS NASREEN Administration Radiology Results: ITS Impressions Chest X-Ray 06/12/25 16:08 IMPRESSION: 1. No acute cardiopulmonary disease. Chest/Abdomen/Pelvis CTA 06/12/25 20:38 IMPRESSION: 1. No acute cardiopulmonary disease. 2. Mild wall thickening the distal esophagus which could be seen with esophagitis. 3. No acute intra-abdominal/pelvic process. Labs Labs: Laboratory Results - last 24 hr 06/13/25 06/13/25 06/13/25 11:45 15:49 20:14 WBC RBC Hgb Hct MCV MCH MCHC RDW Plt Count MPV Sodium Potassium Chloride Carbon Dioxide Anion Gap BUN Creatinine Estim Creat Clear Calc Estimated GFR Glucose POC Capillary Glucose 121 H 112 H 208 H Calcium Total Bilirubin AST ALT Alkaline Phosphatase Total Protein Albumin 06/14/25 06/14/25 05:23 07:42 WBC 8.8 RBC 3.54 L Hgb 10.9 L Hct 34.2 L MCV 96.6 MCH 30.8 MCHC 31.9 L RDW 11.9 Plt Count 289 MPV 9.6 Sodium 135 L Potassium 4.1 Chloride 102 Carbon Dioxide 29 Anion Gap 4 BUN 21 H D Creatinine 0.94 Estim Creat Clear Calc 71 Estimated GFR > 60 Glucose 106 POC Capillary Glucose 109 H Calcium 7.9 L Total Bilirubin 0.7 AST 24 ALT 19 Alkaline Phosphatase 84 Total Protein 6.7 Albumin 3.1 L Quality VTE Prophylaxis VTE prophylaxis: pharmacologic ordered (Lovenox 40 mg subQ daily) Hospitalist MIPS Advance Care Plan I have confirmed that the patient's Advanced Care Plan is present, code status is documented, or surrogate decision maker is listed in patient medical record.: Yes Medication Reconciliation I have utilized all available resources to obtain, update and review the patients current medications (includes all prescriptions, OTC, herbals, cannabis, and nutritional supplements).: Yes
[2025-06-14 10:34] VITALS: BP 105/55; PULSE 80; RESP 16; TEMP 37.2; O2SAT 98
--- NOTE | 2025-06-14 11:46 | PM.PNGS ---
Progress Note: A&P Assessment and Plan (1) Sacrococcygeal pilonidal cyst with abscess: Code(s): L05.01 - Pilonidal cyst with abscess Status: Acute Assessment and Plan: Doing well postop day 1., loosely repacked with Nu Gauze and covered with 4x4s. Continue IV antibiotics. Possibly home tomorrow. Subjective Subjective Date/Time Seen: 06/14/25 11:46 Post Op day: 1 Patient reports: feels better, pain is less, tolerating a regular diet and afebrile Exam Const: General: comfortable, alert and awake GI: Rectal Exam: abscess (Packing removed, both openings clean, no purulence) Objective Data Vital Signs Vital Signs: Vital Signs - 24 hr 06/13/25 15:27 06/13/25 15:40 06/13/25 15:55 Temperature 36.5 C 36.4 C L Pulse Rate 100 89 85 Respiratory Rate 18 22 H 16 Blood Pressure 128/73 128/57 L 131/63 Pulse Oximetry 100 100 100 Oxygen Delivery Simple Face Mask Simple Face Mask Simple Face Mask Oxygen Flow Rate 8 10 10 06/13/25 16:10 06/13/25 16:25 06/13/25 17:00 Temperature 36.9 C Pulse Rate 87 82 85 Respiratory Rate 16 14 18 Blood Pressure 138/69 143/67 H 141/78 H Pulse Oximetry 99 98 100 Oxygen Delivery Room Air Room Air Oxygen Flow Rate 06/13/25 17:15 06/13/25 17:30 06/13/25 18:30 Temperature 36.9 C 36.8 C 36.8 C Pulse Rate 82 90 99 Respiratory Rate 18 18 20 Blood Pressure 133/89 143/84 H 152/87 H Pulse Oximetry 100 98 97 Oxygen Delivery Oxygen Flow Rate 06/13/25 20:00 06/13/25 21:19 06/13/25 23:25 Temperature 37.1 C 37.1 C Pulse Rate 102 H 88 Respiratory Rate 18 18 Blood Pressure 123/65 132/65 Pulse Oximetry 98 97 Oxygen Delivery Room Air Oxygen Flow Rate 06/14/25 02:34 06/14/25 06:03 06/14/25 08:00 Temperature 37.1 C 36.8 C Pulse Rate 90 88 Respiratory Rate 20 18 Blood Pressure 108/58 L 109/46 L Pulse Oximetry 99 93 Oxygen Delivery Room Air Oxygen Flow Rate 06/14/25 10:34 Temperature 37.2 C Pulse Rate 80 Respiratory Rate 16 Blood Pressure 105/55 L Pulse Oximetry 98 Oxygen Delivery Oxygen Flow Rate Intake/Output Intake/Output: Intake & Output 06/11/25 06/12/25 06/13/25 06/14/25 23:59 23:59 23:59 23:59 Intake Total 3140 1170 Output Total 600 Balance 2540 1170 Meds/Results Medications: Active Medications Generic Name Dose Route Start Last Admin Trade Name Freq PRN Reason Stop Dose Admin Acetaminophen 650 mg 06/13/25 03:52 Acetaminophen 325 Mg Tablet PO Q4H PRN Mild Pain (1-3) or Fever Aspirin 81 mg 06/14/25 08:00 06/14/25 08:26 Aspirin 81 Mg Chewable Tablet PO 81 mg DAILY@0800 NASREEN Administration Dextrose 12.5 gm 06/13/25 04:01 Dextrose 50% 25 Gm/50 Ml Syringe IV PUSH PRN PRN Hypoglycemia Protocol Enoxaparin Sodium 40 mg 06/13/25 09:00 06/14/25 08:26 Enoxaparin 40 Mg/0.4 Ml Syringe SUB-Q 40 mg DAILY NASREEN Administration Glucagon 1 mg 06/13/25 04:01 Glucagon For Inj 1 Mg Vial IM PRN PRN Hypoglycemia Protocol Glucose 15 gm 06/13/25 04:01 Glucose Oral Gel 15 Gm Of Glucse In 37.5 Gm Tube PO PRN PRN Hypoglycemia Protocol Piperacillin Sod/Tazobactam 50 mls @ 100 mls/hr 06/13/25 02:00 06/14/25 06:35 Sod 3.375 gm/ Sodium Chloride IVPB 100 mls/hr Q6HR NASREEN Administration Dextrose 1,000 mls @ 100 mls/hr 06/13/25 04:01 Dextrose 5% 1,000 Ml IVPB PRN PRN Hypoglycemia Protocol Lactated Ringer's 1,000 mls @ 80 mls/hr 06/13/25 16:49 06/14/25 08:25 Lr - Lactated Ringers Iv IV CONT 80 mls/hr .[id number] NASREEN Administration Ibuprofen 800 mg in 200 mls @ 400 mls/hr 06/13/25 16:49 Caldolor 800 Mg/200 Ml IVPB Q6H PRN Breakthrough Pain Rated 1-3 or NPO Insulin Aspart 3 - 6 units 06/13/25 08:00 06/14/25 08:26 Insulin Aspart (*Bkc) 100 Units/Ml SUB-Q Not Given TIDWM [facility] Protocol Morphine Sulfate 2 mg 06/13/25 16:49 Morphine Sulfate (*Crx) 2 Mg/Ml Inj IV PUSH Q2H PRN Breakthrough Pain Rated 4-6 or NPO Morphine Sulfate 4 mg 06/13/25 16:49 06/13/25 22:09 Morphine Sulfate (*Crx) 4 Mg/Ml Inj IV PUSH 4 mg Q2H PRN Administration Breakthrough Pain Rated 7-10 or NPO Naloxone HCl 0.1 mg 06/13/25 16:49 Naloxone Hcl 0.4 Mg/Ml Vial IV PUSH Q2M PRN Opiate Reversal Ondansetron HCl 4 mg 06/12/25 22:45 Ondansetron Inj 4 Mg/2 Ml Vial IV PUSH Q4H PRN Nausea And Vomiting Oxycodone HCl 2.5 mg 06/13/25 16:49 06/13/25 18:36 Oxycodone Hcl (*Crx) 2.5 Mg Tab Ir PO 2.5 mg Q4H PRN Administration Pain Rated 4-6 Oxycodone HCl 5 mg 06/13/25 16:49 06/14/25 03:26 Oxycodone Hcl (*Crx) 5 Mg Tab Ir PO 5 mg Q4H PRN Administration Pain Rated 7-10 Pantoprazole Sodium 40 mg 06/13/25 21:00 06/14/25 08:25 Pantoprazole 40 Mg Tablet PO 40 mg Q12HR NASREEN Administration Polyethylene Glycol 17 gm 06/14/25 09:00 06/14/25 08:26 Polyethylene Glycol 3350 17 Gm Powd.Pack PO 17 gm QAM NASREEN Administration Senna/Docusate Sodium 2 tab 06/13/25 21:00 06/13/25 22:05 Senna/Docusate Sodium Tablet PO 2 tab HS NASREEN Administration Sucralfate 1 gm 06/13/25 06:30 06/14/25 06:35 Sucralfate 1 Gm Tablet PO 1 gm ACHS NASREEN Administration Radiology Results: ITS Impressions Chest X-Ray 06/12/25 16:08 IMPRESSION: 1. No acute cardiopulmonary disease. Chest/Abdomen/Pelvis CTA 06/12/25 20:38 IMPRESSION: 1. No acute cardiopulmonary disease. 2. Mild wall thickening the distal esophagus which could be seen with esophagitis. 3. No acute intra-abdominal/pelvic process. Labs Labs: Laboratory Results - last 24 hr 06/13/25 06/13/25 06/13/25 11:45 15:49 20:14 WBC RBC Hgb Hct MCV MCH MCHC RDW Plt Count MPV Sodium Potassium Chloride Carbon Dioxide Anion Gap BUN Creatinine Estim Creat Clear Calc Estimated GFR Glucose POC Capillary Glucose 121 H 112 H 208 H Calcium Total Bilirubin AST ALT Alkaline Phosphatase Total Protein Albumin 06/14/25 06/14/25 05:23 07:42 WBC 8.8 RBC 3.54 L Hgb 10.9 L Hct 34.2 L MCV 96.6 MCH 30.8 MCHC 31.9 L RDW 11.9 Plt Count 289 MPV 9.6 Sodium 135 L Potassium 4.1 Chloride 102 Carbon Dioxide 29 Anion Gap 4 BUN 21 H D Creatinine 0.94 Estim Creat Clear Calc 71 Estimated GFR > 60 Glucose 106 POC Capillary Glucose 109 H Calcium 7.9 L Total Bilirubin 0.7 AST 24 ALT 19 Alkaline Phosphatase 84 Total Protein 6.7 Albumin 3.1 L
[2025-06-14 14:12] VITALS: BP 130/85; PULSE 80; RESP 20; TEMP 36.1; O2SAT 99
[2025-06-14] MEDS: FLUCONAZOLE 150 MG TABLET PO (17:33)
[2025-06-14 18:24] VITALS: BP 135/80; PULSE 81; RESP 18; TEMP 37.2; O2SAT 99
[2025-06-14] MEDS: SENNA/DOCUSATE SODIUM TABLET 2 TAB PO (19:36)
[2025-06-14 21:40] VITALS: BP 142/83; PULSE 78; RESP 19; TEMP 36.2; O2SAT 99
[2025-06-14] MEDS: oxyCODONE HCL (*CRX) 2.5 MG TAB IR PO (23:39)
[2025-06-15 05:07] VITALS: BP 108/55; PULSE 83; RESP 14; TEMP 36.5; O2SAT 97
[2025-06-15] MEDS: oxyCODONE HCL (*CRX) 2.5 MG TAB IR PO (05:33)
[2025-06-15] MEDS: PIPERACILLIN/TAZOBACTAM SOD 3.375 GM in SODIUM CHLORIDE 0.9% IV 50 ML 100 ML IVPB ×2 (05:33→12:24)
[2025-06-15] MEDS: SUCRALFATE 1 GM TABLET PO ×2 (05:33→12:24)
[2025-06-15 05:41] LABS: Hematocrit 33.6 % (37.0-47.0); Hemoglobin 10.8 g/dL (12.0-15.0); Mean Corpuscular HGB Conc 32.1 g/dl (32-36); Mean Corpuscular Hemoglobin 30.9 pg (26-34); Mean Corpuscular Volume 96.0 fl (80-100); Platelet Count Result 281 k/mm3 (150-375); Red Blood Count 3.50 M/mm3 (4.2-5.4); White Blood Count 7.6 K/mm3 (4.5-10.0)
[2025-06-15 06:05] LABS: Alanine Aminotransferase 19 U/L (6-35); Albumin Level 3.1 g/dL (3.5-5.1); Alkaline Phosphatase 80 U/L (38-126); Anion Gap 3 mmol/L (4-12); Aspartate Amino Transferase 24 U/L (14-36); Bilirubin,Total 0.5 mg/dL (0.2-1.3); Blood Urea Nitrogen 13 mg/dL (7-17); Calcium 8.0 mg/dL (8.4-10.2); Carbon Dioxide 29 mmol/L (22-30); Chloride 103 mmol/L (98-107); Estimated CRCL calculation 79 ml/min; Estimated Glomerular Filt Rate > 60; Glucose 126 mg/dL (65-110); Potassium 3.9 mmol/L (3.4-5.0); Sodium 135 mmol/L (137-145); Total Protein 6.6 g/dL (6.3-8.2)
[2025-06-15] MEDS: PANTOPRAZOLE 40 MG TABLET PO (08:40)
[2025-06-15] MEDS: ASPIRIN 81 MG CHEWABLE TABLET PO (08:40)
[2025-06-15] MEDS: ENOXAPARIN 40 MG/0.4 ML SYRINGE SUB-Q (08:40)
--- NOTE | 2025-06-15 10:59 | P.DS_ITS ---
DS: Admitting Diagnosis Discharge Date 06/15/25 Admitting Diagnosis Chest Pain DS: Discharge Diagnosis Discharge Diagnosis (1) Infected pilonidal cyst: Code(s): L05.91 - Pilonidal cyst without abscess Status: Acute (2) Sepsis: Qualifiers: Acute renal failure type: unspecified Sepsis acute organ dysfunction status: with acute organ dysfunction Sepsis type: sepsis due to unspecified organism Severe sepsis acute organ dysfunction type: acute renal failure Severe sepsis shock status: without septic shock Qualified Code(s): A41.9 - Sepsis, unspecified organism; R65.20 - Severe sepsis without septic shock; N17.9 - Acute kidney failure, unspecified Code(s): A41.9 - Sepsis, unspecified organism Status: Acute (3) KVNG (acute kidney injury): Code(s): N17.9 - Acute kidney failure, unspecified Status: Acute (4) Severe dehydration: Code(s): E86.0 - Dehydration Status: Acute (5) Esophagitis: Code(s): K20.90 - Esophagitis, unspecified without bleeding Status: Acute (6) Sliding hiatal hernia: Code(s): K44.9 - Diaphragmatic hernia without obstruction or gangrene Status: Acute (7) Non-cardiac chest pain: Code(s): R07.89 - Other chest pain Status: Acute (8) Hyperglycemia due to diabetes mellitus: Code(s): E11.65 - Type 2 diabetes mellitus with hyperglycemia Status: Acute (9) Essential hypertension: Code(s): I10 - Essential (primary) hypertension Status: Acute DS: Summary Hospital Course Hospital Course: Patient is a 50 year old AA female that presented to the hospital with chest pain acid reflux and she had been having nausea with vomiting. Chest X-Ray 06/12/25 16:08 IMPRESSION: 1. No acute cardiopulmonary disease. Chest/Abdomen/Pelvis CTA 06/12/25 20:38 IMPRESSION: 1. No acute cardiopulmonary disease. 2. Mild wall thickening the distal esophagus which could be seen with esophagitis. 3. No acute intra-abdominal/pelvic process. 06/13- Presacral abscesses Incision and drained. 06/15 Patient was receiving Zosyn. Patient will go home on Augmentin. She does not need to pack either abscess. She can shower or bathe a daily, dry off the area, and just place 4 x 4 gauze between the buttocks to cover the abscesses. Will follow up with surgery in 2 weeks. Blood cultures no growth to day. Wound culture pending. Status at Discharge Functional status at discharge: independent ambulation Time Spent with Patient Time attestation: Total time spent providing and/or coordinating discharge services: Time spent: Greater than 30 minutes Exam Const: General: no acute distress Resp: Effort & Inspection: normal respiratory effort Auscultation: clear to auscultation bilaterally Cardio: Rate: regular rate Rhythm: regular rhythm GI: GI Palp: Yes Soft to palpation Auscultation: normal bowel sounds Skin: Other: serosanguineous drainage on dressing. Tissue pink. No purulence. Extrem: General: no pedal edema Psych: Mental Status: mental status grossly normal Affect: normal affect DS: Data Data Completed and Pending Labs on day of discharge: Labs from last 24 hours 06/15/25 06/14/25 06/14/25 05:14 20:19 16:34 WBC 7.6 RBC 3.50 L Hgb 10.8 L Hct 33.6 L MCV 96.0 MCH 30.9 MCHC 32.1 RDW 11.9 Plt Count 281 MPV 9.4 Sodium 135 L Potassium 3.9 Chloride 103 Carbon Dioxide 29 Anion Gap 3 L BUN 13 D Creatinine 0.89 Estim Creat Clear Calc 79 Estimated GFR > 60 Glucose 126 H POC Capillary Glucose 191 H 131 H Calcium 8.0 L Total Bilirubin 0.5 AST 24 ALT 19 Alkaline Phosphatase 80 Total Protein 6.6 Albumin 3.1 L 06/14/25 11:38 WBC RBC Hgb Hct MCV MCH MCHC RDW Plt Count MPV Sodium Potassium Chloride Carbon Dioxide Anion Gap BUN Creatinine Estim Creat Clear Calc Estimated GFR Glucose POC Capillary Glucose 134 H Calcium Total Bilirubin AST ALT Alkaline Phosphatase Total Protein Albumin Discharge Plan Discharge Attending physician on discharge: Jeison Valentine Consulting providers: Isaiah Reyes Discharging Clinician: Sayra Whatley Anticipated Discharge Date/Time: 06/15/25 13:48 Patient Disposition: Home Activity: may shower and as tolerated Diet: diabetic Wound Care Instructions: remove dressing to shower Discharge Instructions: * Ambulate 3-4 x per day and as tolerated. * No lifting over 15-20lbs For 1 week. * May bathe or shower. Should bathe or shower at least every other day. Wash buttocks wounds with soap when showering. Tamp dry and replace dressings after. Dressings are to be 2 (two) 4 x 4 gauze pads between the buttocks over the 2 wounds. * Stairs are OK. * May drive a car in 2 days. * Remove any dressings before shower and replace after. Also can remove and replace dressings any time they are soiled or saturated. Drainage from the wounds will decrease over time. * Call Dr. Reyes if developed temp over 100.5, severe pain in the area of the buttocks wounds, persistent drainage or bleeding requiring multiple dressing changes, other significant change in condition. * Take all doses of antibiotic. Thank you for entrusting [facility] with your healthcare! Patient Instructions: Antibiotic Form, Pilonidal Cyst (GEN), Opioid Safety (DC), Esophagitis (GEN) Patient Language: Tristanian Stand Alone Forms: General Discharge Information Follow-up/Referrals: Isaiah Reyes MD [Physician, General Surgery] - 06/22/25 Referral Note: Call Dr. Lee office for appointment on 06/22/2025 Schwarz,EDER Schmidt [Primary Care Provider, Unknown] - 1 Week Discharge Medications: New oxycodone-acetaminophen [Percocet] 2.5-325 mg tablet 1 tablet PO Q6H PRN (Reason: pain) Qty: 10 0RF amoxicillin-pot clavulanate 875-125 mg tablet 1 tablet PO Q12H Qty: 10 0RF Continued aspirin [Children's Aspirin] 81 mg Tablet,Chewable 81 mg PO DAILY@0800 Qty: 30 1RF Jardiance 10 mg Tablet 10 mg PO DAILY Qty: 30 1RF furosemide 40 mg Tablet 40 mg PO DAILY Qty: 30 1RF sacubitril-valsartan [Entresto] 24-26 mg Tablet 1 tablet PO Q12HR Qty: 60 1RF rosuvastatin 40 mg capsule, sprinkle 40 mg PO DAILY Qty: 30 1RF metformin 500 mg tablet 250 mg PO BIDWMEAL Qty: 60 1RF (DME) blood-glucose meter [OneTouch Verio Flex meter] [facility] [place] Qty: 1 0RF Rx Instructions: May substitute to in-stock meter and/or covered by insurance. Use As Directed (DME) OneTouch Verio test strips Strip Qty: 1 0RF Rx Instructions: May substitute to in-stock and/or covered by insurance strips. Use As Directed (DME) lancets [OneTouch Delica Plus Lancet] 30 gauge misc Qty: 1 0RF Rx Instructions: May substitute to in-stock and/or covered by insurance lancets. Use As Directed Trulicity 0.75 mg/0.5 mL pen injector 0.75 mg SUBCUT WEEKLY Date of admission: 06/12/25 22:19 Primary Care Provider: KarishmaSneha Admitting Provider: Jen Beauchamp Attending physician on admission: Jen Beauchamp Condition: Improved Quality VTE Prophylaxis VTE prophylaxis: pharmacologic ordered Hospitalist MIPS Heart Failure (Exclusion) Patient has history of Heart Transplant or Left Ventricular Assistive Device?: No IF YES, STOP HERE Heart Failure (Qualifier) Patient has current or prior documentation of LVEF less than or equal to 40%, or mod/servere depressed LVSF?: No IF NO, STOP HERE
--- NOTE | 2025-06-15 13:16 | P.PNGS_ITS ---
Progress Note: A&P Assessment and Plan (1) Sacrococcygeal pilonidal cyst with abscess: Code(s): L05.01 - Pilonidal cyst with abscess Status: Acute Assessment and Plan: healing well. Gram stain shows the abscess to be polymicrobial. She could go home on Augmentin 875 1 p.o. b.i.d. for 5 more days. She does not need to pack either abscess. She can shower or bathe a daily, dry off the area, and just place 4 x 4 gauze between the buttocks to cover the abscesses. Follow-up with me in 2 weeks. (2) Hyperglycemia due to diabetes mellitus: Code(s): E11.65 - Type 2 diabetes mellitus with hyperglycemia Status: Acute Assessment and Plan: Much improved Subjective Subjective Date/Time Seen: 06/15/25 13:16 Post Op day: 2 Patient reports: feels better, pain is less and no bowel movement Exam Const: General: comfortable GI: Rectal Exam: abscess ( both wounds clean, no purulence, packing removed and not replaced) Objective Data Vital Signs Vital Signs: Vital Signs - 24 hr 06/14/25 14:12 06/14/25 18:24 06/14/25 21:40 Temperature 36.1 C L 37.2 C 36.2 C L Pulse Rate 80 81 78 Respiratory Rate 20 18 19 Blood Pressure 130/85 135/80 142/83 H Pulse Oximetry 99 99 99 Oxygen Delivery 06/15/25 05:07 06/15/25 08:00 Temperature 36.5 C Pulse Rate 83 Respiratory Rate 14 Blood Pressure 108/55 L Pulse Oximetry 97 Oxygen Delivery Room Air Intake/Output Intake/Output: Intake & Output 06/12/25 06/13/25 06/14/25 06/15/25 23:59 23:59 23:59 23:59 Intake Total 3140 3251.3 440 Output Total 600 Balance 2540 3251.3 440 Meds/Results Medications: Active Medications Generic Name Dose Route Start Last Admin Trade Name Freq PRN Reason Stop Dose Admin Acetaminophen 650 mg 06/13/25 03:52 Acetaminophen 325 Mg Tablet PO Q4H PRN Mild Pain (1-3) or Fever Aspirin 81 mg 06/14/25 08:00 06/15/25 08:40 Aspirin 81 Mg Chewable Tablet PO 81 mg DAILY@0800 NASREEN Administration Dextrose 12.5 gm 06/13/25 04:01 Dextrose 50% 25 Gm/50 Ml Syringe IV PUSH PRN PRN Hypoglycemia Protocol Enoxaparin Sodium 40 mg 06/13/25 09:00 06/15/25 08:40 Enoxaparin 40 Mg/0.4 Ml Syringe SUB-Q 40 mg DAILY NASREEN Administration Glucagon 1 mg 06/13/25 04:01 Glucagon For Inj 1 Mg Vial IM PRN PRN Hypoglycemia Protocol Glucose 15 gm 06/13/25 04:01 Glucose Oral Gel 15 Gm Of Glucse In 37.5 Gm Tube PO PRN PRN Hypoglycemia Protocol Piperacillin Sod/Tazobactam 50 mls @ 100 mls/hr 06/13/25 02:00 06/15/25 12:24 Sod 3.375 gm/ Sodium Chloride IVPB 100 mls/hr Q6HR NASREEN Administration Dextrose 1,000 mls @ 100 mls/hr 06/13/25 04:01 Dextrose 5% 1,000 Ml IVPB PRN PRN Hypoglycemia Protocol Ibuprofen 800 mg in 200 mls @ 400 mls/hr 06/13/25 16:49 Caldolor 800 Mg/200 Ml IVPB Q6H PRN Breakthrough Pain Rated 1-3 or NPO Insulin Aspart 3 - 6 units 06/13/25 08:00 06/15/25 08:40 Insulin Aspart (*Bkc) 100 Units/Ml SUB-Q Not Given [facility] Protocol Morphine Sulfate 2 mg 06/13/25 16:49 Morphine Sulfate (*Crx) 2 Mg/Ml Inj IV PUSH Q2H PRN Breakthrough Pain Rated 4-6 or NPO Morphine Sulfate 4 mg 06/13/25 16:49 06/13/25 22:09 Morphine Sulfate (*Crx) 4 Mg/Ml Inj IV PUSH 4 mg Q2H PRN Administration Breakthrough Pain Rated 7-10 or NPO Naloxone HCl 0.1 mg 06/13/25 16:49 Naloxone Hcl 0.4 Mg/Ml Vial IV PUSH Q2M PRN Opiate Reversal Ondansetron HCl 4 mg 06/12/25 22:45 Ondansetron Inj 4 Mg/2 Ml Vial IV PUSH Q4H PRN Nausea And Vomiting Oxycodone HCl 2.5 mg 06/13/25 16:49 06/15/25 05:33 Oxycodone Hcl (*Crx) 2.5 Mg Tab Ir PO 2.5 mg Q4H PRN Administration Pain Rated 4-6 Oxycodone HCl 5 mg 06/13/25 16:49 06/14/25 19:35 Oxycodone Hcl (*Crx) 5 Mg Tab Ir PO 5 mg Q4H PRN Administration Pain Rated 7-10 Pantoprazole Sodium 40 mg 06/13/25 21:00 06/15/25 08:40 Pantoprazole 40 Mg Tablet PO 40 mg Q12HR NASREEN Administration Polyethylene Glycol 17 gm 06/14/25 09:00 06/15/25 08:40 Polyethylene Glycol 3350 17 Gm Powd.Pack PO 17 gm QAM NASREEN Administration Senna/Docusate Sodium 2 tab 06/13/25 21:00 06/14/25 19:36 Senna/Docusate Sodium Tablet PO 2 tab HS NASREEN Administration Sucralfate 1 gm 06/13/25 06:30 06/15/25 12:24 Sucralfate 1 Gm Tablet PO 1 gm ACHS NASREEN Administration Radiology Results: ITS Impressions Chest X-Ray 06/12/25 16:08 IMPRESSION: 1. No acute cardiopulmonary disease. Chest/Abdomen/Pelvis CTA 06/12/25 20:38 IMPRESSION: 1. No acute cardiopulmonary disease. 2. Mild wall thickening the distal esophagus which could be seen with esophagitis. 3. No acute intra-abdominal/pelvic process. Labs Labs: Laboratory Results - last 24 hr 06/14/25 06/14/25 06/15/25 16:34 20:19 05:14 WBC 7.6 RBC 3.50 L Hgb 10.8 L Hct 33.6 L MCV 96.0 MCH 30.9 MCHC 32.1 RDW 11.9 Plt Count 281 MPV 9.4 Sodium 135 L Potassium 3.9 Chloride 103 Carbon Dioxide 29 Anion Gap 3 L BUN 13 D Creatinine 0.89 Estim Creat Clear Calc 79 Estimated GFR > 60 Glucose 126 H POC Capillary Glucose 131 H 191 H Calcium 8.0 L Total Bilirubin 0.5 AST 24 ALT 19 Alkaline Phosphatase 80 Total Protein 6.6 Albumin 3.1 L 06/15/25 06/15/25 07:40 11:51 WBC RBC Hgb Hct MCV MCH MCHC RDW Plt Count MPV Sodium Potassium Chloride Carbon Dioxide Anion Gap BUN Creatinine Estim Creat Clear Calc Estimated GFR Glucose POC Capillary Glucose 130 H 157 H Calcium Total Bilirubin AST ALT Alkaline Phosphatase Total Protein Albumin
--- NOTE | 2025-06-22 08:08 | PC.NURSE ---
Blood cx shows no growth.
--- NOTE | 2025-06-24 09:09 | PC.NURSE ---
Dr. Valentine reviewed labs as the JAMES that saw pt is off. Amoxicillin is proper treatment for culture results. Called pt to see how she is feeling. Pt states she is feeling good. Not having any issues. Has appt with Dr. Reyes tomorrow, 06/25.
--- NOTE | 2025-06-24 09:13 | PC.NURSE ---
Faxed results of abscess cx to PCP.
== END 2025-06-15 14:41 | disposition home or self-care (01) ==
LOC: ANHED 22:04 → ANHIMU 06-13 08:04 → ANH3MEDSUR 06-15 13:29 → ANHIMU 06-16 14:14
PROVIDERS: General Practice; Surgery; Admitting Provider Internal Medicine; Emergency Provider Emergency Medicine; PCP Nurse Practitioner Family; Visit Provider Internal Medicine
PROC: (CPT 46040; principal; 2025-06-13 14:00)
DX: A41.9 Sepsis, unspecified organism (principal); R65.20 Severe sepsis without septic shock; N17.9 Acute kidney failure, unspecified; R07.9 Chest pain, unspecified; L05.01 Pilonidal cyst with abscess; E86.0 Dehydration; K21.00 Gastro-esophageal reflux disease with esophagitis, without bleeding; I25.10 Atherosclerotic heart disease of native coronary artery without angina pectoris; K44.9 Diaphragmatic hernia without obstruction or gangrene; R07.89 Other chest pain; E11.65 Type 2 diabetes mellitus with hyperglycemia; I10 Essential (primary) hypertension; E78.5 Hyperlipidemia, unspecified; R00.0 Tachycardia, unspecified; D72.829 Elevated white blood cell count, unspecified; R06.82 Tachypnea, not elsewhere classified; Z79.85 Long-term (current) use of injectable non-insulin antidiabetic drugs; Z79.84 Long term (current) use of oral hypoglycemic drugs; E66.89 Other obesity not elsewhere classified; Z68.39 Body mass index [BMI] 39.0-39.9, adult; I51.81 Takotsubo syndrome; J84.10 Pulmonary fibrosis, unspecified; K76.0 Fatty (change of) liver, not elsewhere classified; Z79.82 Long term (current) use of aspirin; F12.90 Cannabis use, unspecified, uncomplicated; Z82.49 Family history of ischemic heart disease and other diseases of the circulatory system; Z83.3 Family history of diabetes mellitus; Z84.1 Family history of disorders of kidney and ureter
CPT/HCPCS: 10080; 36415; 71046; 71275; 74174; 80053; 81001; 82010; 82803; 82948; 83036; 83605; 83690; 83735; 83880; 84145; 84484; 85025; 85027; 85610; 85730; 87040; 87070; 87075; 87086; 87205; 93005; 96374; 96375; 99285; A9270; G0378; G0379; J0330; J1650; J2003; J2250; J2270; J2405; J2470; J2543; J2704; J3010; J7030; J7120; Q9967